=== PATIENT | female | born 1995 | race Caucasian/White ===

== ENCOUNTER 2020-02-05 09:28 | Outpatient (REF) | payer OTHER, MEDICAID, SELFPAY | END 2020-02-05 09:29 | disposition home or self-care (01) | LOC: HO.HMGCLDS 09:28 | PROVIDERS: PCP Internal Medicine; Visit Provider Nurse Practitioner Family | DX: Z20.828 Contact with and (suspected) exposure to other viral communicable diseases (principal) | CPT/HCPCS: 36415; 87635 ==

== ENCOUNTER 2020-04-26 11:54 | Outpatient (REF) | payer OTHER, MEDICAID, SELFPAY | END 2020-04-26 11:55 | disposition home or self-care (01) | LOC: HO.LNP 11:54 | PROVIDERS: Visit Provider Family Medicine | DX: Z20.828 Contact with and (suspected) exposure to other viral communicable diseases (principal) | CPT/HCPCS: U0003 ==

== ENCOUNTER 2020-05-10 10:38 | Outpatient (REF) | payer OTHER, MEDICAID, SELFPAY | END 2020-05-10 10:39 | disposition home or self-care (01) | LOC: HO.LNP 10:38 | PROVIDERS: Visit Provider Family Medicine | DX: R05 Cough (principal); Z20.822 Contact with and (suspected) exposure to COVID-19 | CPT/HCPCS: U0003 ==

== ENCOUNTER 2021-05-11 09:23 | Outpatient (REF) | payer OTHER, MEDICAID, SELFPAY ==
[2021-05-11 11:22] LABS: Influenza A PCR NEGATIVE (Negative); Influenza B PCR NEGATIVE (Negative); Resp Syncy Virus RNA Qual PCR NEGATIVE (Negative); SARS COV2 PCR INHOUSE NEGATIVE (Negative)
== END 2021-05-11 09:24 | disposition home or self-care (01) ==
LOC: HO.LAB 09:23
PROVIDERS: Visit Provider Hospitalist
DX: J02.8 Acute pharyngitis due to other specified organisms (principal); B97.89 Other viral agents as the cause of diseases classified elsewhere; Z20.822 Contact with and (suspected) exposure to COVID-19
CPT/HCPCS: 0241U

== ENCOUNTER 2021-08-10 15:44 | Outpatient (REF) | payer OTHER, MEDICAID, SELFPAY ==
--- NOTE | ~2021-08-10 | XR_ITS ---
EXAMINATION: XR CHEST CLINICAL INFORMATION: Asthma. COMPARISON: Prior chest radiographs as remote as 06/30/2008. TECHNIQUE: Frontal view of the chest was obtained. FINDINGS: No significant abnormality is noted involving the heart, lungs, mediastinum, bony thorax or soft tissues. XR/XR chest 1V IMPRESSION: Unremarkable examination.
== END 2021-08-10 15:45 | disposition home or self-care (01) ==
LOC: HO.XRAY 15:44
PROVIDERS: PCP Family Medicine; Visit Provider Hospitalist
DX: J45.909 Unspecified asthma, uncomplicated (principal); R68.83 Chills (without fever)
CPT/HCPCS: 71045

== ENCOUNTER 2023-02-07 15:23 | Outpatient (AMB) | payer OTHER, MEDICAID, SELFPAY ==
[2023-02-07 15:28] VITALS: BP 112/64; PULSE 109; RESP 12; TEMP 36.4; O2SAT 99; BMI 32.0
--- NOTE | 2023-02-07 15:28 | A.OFFPC_ITS ---
Vital Signs 02/07/23 15:28 Height 5 ft 6 in Weight 198 lb 4 oz BMI 32.0 BP 112/64 Blood Pressure Location Lt brachial Position Sitting Respiration 12 Pulse 109 H Pulse Source Pulse Oximeter Temp 97.6 F Temp Source Temporal Artery Scan Pulse Oximetry (%) 99 Oxygen Delivery Method Room Air Intake Visit Reasons: [place] [employer] Work Intake Note: Patient states that she hasd been wheezing and shes been using her inhaler more frequently. 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 Accompanied by: Self / Same As Patient Allergies cefprozil [From CEFZIL] Allergy (Intermediate, Verified 02/07/23 15:42) UNKNOWN Cefzil Allergy (Unknown, Uncoded 02/07/23 15:42) unsure Medication List - Last Reviewed 02/07/23 by Irene Mckeon MA albuterol sulfate 90 mcg/actuation (ProAir HFA) 2 puffs inhalation Q6H PRN 30 days amitriptyline mg PO montelukast 5 mg PO DAILY Tobacco use date assessed: 02/07/23 Dental Screening Dental Screen Date: 02/07/23 Did you have a dental visit in the last 12 months?: Yes Did you have a dental problem in the last 6 months where you did not have access to dental care?: No Was dental information given to patient?: Patient has dentist HPI HPI Comments History of Present Illness Details 27-year-old female presents with complai nts of wheezing. She states she has been using her albuterol inhaler more frequently; 3-4 puffs 3-4 times daily for the past 1 month. She admits to taking Montelukast as presc ribed. She notes that she was followed by [facility], was receiving allergy injections, but her director of vocational guidance left the practice. She states she will establish with a new director of vocational guidance. No acute symptoms at this time. She brought [facility] paperwork for her PCP to fill out. 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[employer] Current occupational exposures/hazards: No Cognitive needs: No Hearing needs: No Vision needs: No Questionnaire ACT Questionnaire In the past 4 weeks, how much of the time did your asthma keep you from getting as much done at work, school or at home?: None of the time During the past 4 weeks, how often have you had shortness of breath?: 3-6 times a week During the past 4 weeks, how often did your asthma symptoms wake you up at night or earlier than usual in the morning?: 4 or more nights a week During the past 4 weeks, how often have you had to use your rescue inhaler or nebulizer medication?: More than 3 times per day How would you rate your asthma control during the past 4 weeks?: Poorly controlled ACT Interpretation: Positive Score: 12 Review of Systems Const Details: Const Denies chills, Denies fatigue, Denies fever(s), Denies headache(s) and Denies weakness ENT Denies dizziness and Denies headache(s) Card Denies chest pain, Denies lightheadedness, Denies dyspnea and Denies other (Palpitations) Resp Denies cough, Denies dyspnea, Denies wheezing and Denies other ( shortness of breath) GI Denies abdominal pain, Denies melena, Denies hematochezia, Denies change in bowel habits, Denies dyspepsia and Denies nausea Denies hematuria and Denies dysuria Musc Denies abnormal gait, Denies myalgias, Denies arthralgias, Denies numbness and Denies tingling Skin/Breast Denies rash, Denies unusual bruising and Denies wounds Neuro Denies abnormal gait, Denies dizziness, Denies headache(s), Denies memory loss, Denies numbness, Denies Sensory deficit (Neuro), Denies tingling and Denies weakness Psych Denies anxiety, Denies depression, Denies memory loss Endo Denies cold intolerance, Denies fatigue, Denies heat intolerance, Denies polydipsia and Denies polyuria Aller/Immun Denies wheezing Physical exam (Primary Care) Vital Signs: Last Vital Signs Temp 97.6 F 02/07/23 15:28 Pulse 109 H 02/07/23 15:28 Resp 12 02/07/23 15:28 BP 112/64 02/07/23 15:28 Pulse Ox 99 02/07/23 15:28 Oxygen Delivery Method Room Air 02/07/23 15:28 BMI result Body Mass Index 32.0 Tobacco/Smoking Status: Tobacco use Status Tobacco use date assessed 02/07/23 02/07/23 15:40 Patient Tobacco Use Status Never used Tobacco 02/07/23 15:40 e-Cigarette/Vaping Use Never Used 02/07/23 15:40 Const Other: General: no acute distress and well developed Nutritional Appearance: well nourished Orientation/consciousness: patient oriented x3 HENMT Head: Yes normocephalic and Yes atraumatic Eyes General: appearance normal, both eyes and all related structures Pupils: Equal, round and reactive pupils present EOM: EOMs intact bilaterally Resp Effort & Inspection: normal respiratory effort Auscultation: clear to auscultation bilaterally Cardio Rate: regular rate Rhythm: regular rhythm Heart sounds: S1 normal heart sound present, S2 normal heart sound present, no gallops, no murmurs and no rubs GI Palpation (GI): No Abdominal aortic bruit present, Soft to palpation, nontender, No hepatosplenomegaly present and No Rebound tenderness present Auscultation: normal bowel sounds General: Yes no CVA tenderness Back/Spine/Pelvis Back: no CVA tenderness Cervical Spine: cervical ROM normal and No Cervical spine tenderness Thoracic/Lumbar Spine: thoraco-lumbar ROM normal, No pain with thoraco-lumbar ROM, No thoracic spinal tenderness and No lumbar spinal tenderness Extrem General: Yes normal to inspection, No edema and No calf tenderness Skin General: warm and dry. Normal skin color. Normal skin turgor Lesions: no lesions Rashes: no rashes Trauma: no lacerations or abrasions Wounds: no wounds Nails: normal Neuro General: patient oriented x3, gait normal and no focal neuro deficit Cranial nerves: Yes Equal, round and reactive pupils present Cognition (Neuro): normal cognition Gait exam (Neuro): Normal gait present Sensory Exam: No Sensory deficit (Neuro) Psych Appearance: grossly normal Affect: normal affect Attitude: cooperative Thought process: Normal thought process present Assessment and Plan Assessment & Plan (1) Poorly controlled persistent asthma: Code(s): J45.998 - Other asthma Plan: Reports wheezing and need to use her albuterol inhaler frequently for the past 1 month ACT score is 12 and indicates poorly controlled asthma Albuterol ordered changed to 2 puffs every 4-6 hours instead of every 6 hours. Take as prescribed Flovent ordered. Instructed on the use of the medication and advised to take as prescribed Continue take montelukast as prescribed Follow-up with PCP in 1 month or return sooner with worsening or new symptoms Verbalized understanding and agreed with treatment plan. Medications: New fluticasone propionate 44 mcg/actuation (Flovent HFA) administer with spacer 2 puffs inhalation BID 30 days 10.6 grams 2RF Changed From albuterol sulfate 90 mcg/actuation (ProAir HFA) 2 puffs inhalation Q6H 30 days PRN 8.5 grams 2RF shortness of breath or wheezing To albuterol sulfate 90 mcg/actuation (ProAir HFA) 2 puffs inhalation Q4-6H 30 days PRN 8.5 grams 2RF shortness of breath or wheezing Coding Level of Care Code Est Pt Level 3 (33399) Diagnoses Poorly controlled persistent asthma J45.998
== END 2023-02-07 16:03 | disposition home or self-care (01) ==
PROVIDERS: PCP Family Medicine; Visit Provider Nurse Practitioner Family
DX: J45.998 Other asthma (principal)
CPT/HCPCS: 99214

== ENCOUNTER 2023-03-01 11:15 | Outpatient (AMB) | payer OTHER, SELFPAY ==
[2023-03-01 11:20] VITALS: BP 118/78; PULSE 92; TEMP 36.9; O2SAT 98; BMI 31.4
--- NOTE | 2023-03-01 11:20 | MHC.PC.OV ---
Vital Signs 03/01/23 11:20 Height 5 ft 6 in Weight 194 lb 6 oz BMI 31.4 BP 118/78 Blood Pressure Location Lt brachial Position Sitting Pulse 92 Pulse Source Pulse Oximeter Temp 98.5 F Temp Source Oral Pulse Oximetry (%) 98 Oxygen Delivery Method Room Air Intake Visit Reasons: asthma, cough, SOB Intake Note: Patient states she has shortness of breath, and wheezing. Patient would like a flu shot today. Allergies cefprozil [From CEFZIL] Allergy (Intermediate, Verified 03/01/23 11:23) UNKNOWN Cefzil Allergy (Unknown, Uncoded 03/01/23 11:23) unsure Tobacco use date assessed: 03/01/23 HPI asthma, cough, SOB HPI Details 27 y/o female presents with complaints of asthma, cough and shortness of breath. She is on albuterol and flovent b.i.d. along with montelukast 5mg daily. 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 1. Little interest or pleasure in doing things: not at all 2. Feeling down, depressed, or hopeless: not at all 3. Trouble falling or staying asleep, or sleeping too much: not at all 4. Feeling tired or having little energy: not at all 5. Poor appetite or overeating: not at all 6. Feeling bad about yourself - or that you are a failure or have let yourself or your family down: not at all 7. Trouble concentrating on things, such as reading the newspaper or watching television: not at all 8. Moving or speaking so slowly that other people could have noticed. Or the opposite - being so fidgety or restless that you have been moving around a lot more than usual: not at all 9. Thoughts that you would be better off or of hurting yourself in some way: not at all Total score: 0 Source: Developed by Drs. Rob Richardson, Mercedez Keene, Cisco Sumner and colleagues, with an educational chela from [employer]. Thrive Questionnaire Date Thrive assessed: 03/01/23 I am a: Patient What is your living situation today?: I have a steady place to live Within the past 12 months, did the food you bought not last and you didn't have the money to get more?: Never true Within the past 12 months, did you worry whether your food would run out before you got money to buy more?: Never true Do you have trouble paying for medicines?: No Do you have trouble getting transportation to medical appointments?: No Do you have trouble paying your heating and electricity bill?: No Do you have trouble taking care of your child, family member or friend?: No Do you have trouble with day-to-day activities such as bathing, preparing meals, shopping, managing finances, etc.?: No Are you currently unemployed and looking for a job?: No Are you interested in more education?: No AUDIT C Alcohol Use Questionnaire (AUDIT-C) 1. How often do you have a drink containing alcohol?: Monthly or less 2. How many drinks containing alcohol do you have on a typical day when you are drinking?: 1 or 2 3. How often do you have six or more drinks on one occasion?: Never Total Score: 1 JAK-7 AMB Questionnaire JAK-7 Date JAK - 7 assessed: 03/01/23 Feeling nervous, anxious, or on edge: 1 = Several days Not being able to stop or control worryin = Several days Worrying too much about different things: 3 = Nearly every day Trouble relaxin = Several days Being so restless that it is hard to sit still: 3 = Nearly every day Becoming easily annoyed or irritable: 3 = Nearly every day Feeling afraid as if something awful might happen: 2 = More than half the days Total JAK-7 score (0-4 normal; 5-9 mild; 10-14 moderate; 15-21 severe): 14 Source: Developed by Drs. Rob Richardson, Mercedez Keene, Cisco Sumner and colleagues, with an educational chela from [employer]. ACT Questionnaire In the past 4 weeks, how much of the time did your asthma keep you from getting as much done at work, school or at home?: Most of the time During the past 4 weeks, how often have you had shortness of breath?: More than once a day During the past 4 weeks, how often did your asthma symptoms wake you up at night or earlier than usual in the morning?: 4 or more nights a week During the past 4 weeks, how often have you had to use your rescue inhaler or nebulizer medication?: More than 3 times per day How would you rate your asthma control during the past 4 weeks?: Not controlled at all ACT Interpretation: Positive Score: 6 Review of Systems Const Denies chills, Denies fatigue, Denies fever(s), Denies headache(s) and Denies weakness ENT Denies dizziness and Denies headache(s) Card Denies chest pain, Denies lightheadedness, Denies dyspnea and Denies other (Palpitations) Resp Denies cough, Denies dyspnea, Denies wheezing and Denies other ( shortness of breath) Musc Denies numbness and Denies tingling Neuro Denies dizziness, Denies headache(s), Denies numbness, Denies tingling, Denies paresthesias and Denies weakness Psych Denies anxiety and Denies depression Endo Denies fatigue Aller/Immun Denies wheezing Physical exam (Primary Care) Vital Signs: Last Vital Signs Temp 98.5 F 03/01/23 11:20 Pulse 92 03/01/23 11:20 BP 118/78 03/01/23 11:20 Pulse Ox 98 03/01/23 11:20 Oxygen Delivery Method Room Air 03/01/23 11:20 BMI result Body Mass Index 31.4 Tobacco/Smoking Status: Tobacco use Status Tobacco use date assessed 03/01/23 03/01/23 11:24 Patient Tobacco Use Status Never used Tobacco 03/01/23 11:24 e-Cigarette/Vaping Use Never Used 03/01/23 11:24 PHQ-9: PHQ-9 Score PHQ-9: Total score 0 03/01/23 11:49 Thrive Assessment: Date of Thrive Assessment Date Thrive assessed 03/01/23 03/01/23 11:31 Const General: no acute distress and well developed Nutritional Appearance: well nourished Orientation/consciousness: patient oriented x3 HENMT Head: Yes normocephalic and Yes atraumatic Eyes General: appearance normal, both eyes and all related structures Pupils: Equal, round and reactive pupils present EOM: EOMs intact bilaterally Resp Effort & Inspection: normal respiratory effort Auscultation: clear to auscultation bilaterally Cardio Rate: regular rate Rhythm: regular rhythm Heart sounds: S1 normal heart sound present, S2 normal heart sound present, no gallops, no murmurs and no rubs Neuro General: patient oriented x3 and gait normal Cranial nerves: Yes Equal, round and reactive pupils present Psych Affect: normal affect Assessment and Plan Assessment & Plan (1) Asthma exacerbation: Code(s): J45.901 - Unspecified asthma with (acute) exacerbation Plan: Poorly?controlled?persistent?asthma?and?current?asthma?exacerbation Continue?albuterol?p.r.n. Increased?Flovent Will?give?her?a?10?day?taper?of?prednisone Referred?to?pulmonology (2) Immunization counseling: Code(s): Z71.85 - Encounter for immunization safety counseling Plan: Patient?is?due?for?flu?shot?and?her?work?as?telling?her?she?needs?to?get?1?soon?as?possible. However,?she?is?starting?a?10?day?taper?of?prednisone She?can?get?her?flu?shot?in?2 weeks.??Will?give?her?a?note. Orders: Referrals Pulmonary Medicine Referral J45.998 - Other asthma Medications: New prednisone 4 tabs daily for 4 days, 3 tabs daily for 2 days, 2 tabs daily for 2 days, 1 tab daily for 2 days PO daily; 28 tabs 0RF 10 days Changed From fluticasone propionate 44 mcg/actuation (Flovent HFA) administer with spacer 2 puffs inhalation BID 30 days 10.6 grams 2RF To fluticasone propionate 110 mcg/actuation administer with spacer 1 puff inhalation BID 12 grams 2RF 30 days Coding Level of Care Code Est Pt Level 3 (46788) Diagnoses Asthma exacerbation J45.901 Immunization counseling Z71.85
== END 2023-03-01 12:31 | disposition home or self-care (01) ==
PROVIDERS: PCP Family Medicine; Visit Provider Family Medicine
DX: J45.901 Unspecified asthma with (acute) exacerbation (principal); Z71.85 Encounter for immunization safety counseling
CPT/HCPCS: 99213

== ENCOUNTER 2023-03-14 15:10 | Outpatient (AMB) | payer OTHER, SELFPAY ==
[2023-03-14 15:15] VITALS: BP 124/75; PULSE 93; O2SAT 99; BMI 31.3
--- NOTE | 2023-03-14 15:15 | A.OFFPC_ITS ---
Vital Signs 03/14/23 15:15 Height 5 ft 6 in Weight 194 lb 4 oz BMI 31.3 BP 124/75 Blood Pressure Location Rt brachial Position Sitting Pulse 93 Pulse Source Pulse Oximeter Pulse Oximetry (%) 99 Oxygen Delivery Method Room Air Intake Visit Reasons: f/u asthma and flu shot Intake Note: Patient is here to follow up on her asthma and flu shot. Allergies cefprozil [From CEFZIL] Allergy (Intermediate, Verified 03/14/23 15:16) UNKNOWN Cefzil Allergy (Unknown, Uncoded 03/14/23 15:16) unsure Tobacco use date assessed: 03/14/23 HPI f/u asthma and flu shot HPI Details 27 y/o female presents today to f/u zachary may. She is also due for a flu shot for her work. Had continued her albuterol p.r.n. and increased her flovent. Had also given her a 10 day taper of prednisone and referred her to pulmonology. She has an appt. with pulmonology late April. She reports she caught a viral illness about 2 days ago from one of her kids. She notes she had just finished her last dose of prednisone. She reports she has a cough that lingers. 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 Rob Richardson, Mercedez Keene, Cisco Sumner and colleagues, with an educational chela from [employer]. Review of Systems Const Denies chills, Denies fatigue, Denies fever(s), Denies headache(s) and Denies weakness ENT Denies dizziness and Denies headache(s) Card Denies dyspnea Resp Reports cough, Denies dyspnea and Denies wheezing Musc Denies numbness and Denies tingling Neuro Denies dizziness, Denies headache(s), Denies numbness, Denies tingling and Denies weakness Psych Denies anxiety and Denies depression Endo Denies fatigue Aller/Immun Denies wheezing Physical exam (Primary Care) Vital Signs: Last Vital Signs Pulse 93 03/14/23 15:15 BP 124/75 03/14/23 15:15 Pulse Ox 99 03/14/23 15:15 Oxygen Delivery Method Room Air 03/14/23 15:15 BMI result Body Mass Index 31.3 Tobacco/Smoking Status: Tobacco use Status Tobacco use date assessed 03/14/23 03/14/23 15:22 Patient Tobacco Use Status Never used Tobacco 03/14/23 15:22 e-Cigarette/Vaping Use Never Used 03/14/23 15:22 Thrive Assessment: Date of Thrive Assessment Date Thrive assessed 03/01/23 03/14/23 15:22 Const General: well developed; No acute distress Nutritional Appearance: well nourished Orientation/consciousness: patient oriented x3 [facility] Head: Yes normocephalic and Yes atraumatic Eyes General: appearance normal, both eyes and all related structures Pupils: Equal, round and reactive pupils present EOM: EOMs intact bilaterally Resp Effort & Inspection: normal respiratory effort Neuro General: patient oriented x3 and gait normal Cranial nerves: Yes Equal, round and reactive pupils present Psych Affect: normal affect Assessment and Plan Assessment & Plan (1) Asthma: Code(s): J45.909 - Unspecified asthma, uncomplicated Plan: Ongoing?but?improved?asthma?exacerbation.??She?has?finished?her?prednisone?taper ?and?is?using?Flovent?and?albuterol. However,?she?has?acquired?a?viral?illness?that?her?children?recently?had. Declines?testing?for?COVID/flu/RSV Recommended?rest?and?fluid. Continue?albuterol?and?Flovent Hold?off?on?getting?flu?shot?until?asthma?exacer bation?has?resolved.??Will?give?patient?a?note?to?postpone?this She?has?an?appointment?with?pulmonology?in?April (2) Immunization counseling: Code(s): Z71.85 - Encounter for immunization safety counseling Plan: As?above (3) Viral illness: Code(s): B34.9 - Viral infection, unspecified Plan: As?above Advised?that?if?she?is?getting?worse?or?getting?fevers?or?chills.??She?shou ld?reconsider?getting?tested?for?COVID/flu/RSV. Coding Level of Care Code Est Pt Level 3 (04721) Diagnoses Asthma J45.909 Immunization counseling Z71.85 Viral illness B34.9
== END 2023-03-14 16:01 | disposition home or self-care (01) ==
PROVIDERS: PCP Family Medicine; Visit Provider Family Medicine
DX: J45.909 Unspecified asthma, uncomplicated (principal); Z71.85 Encounter for immunization safety counseling; B34.9 Viral infection, unspecified
CPT/HCPCS: 99213

== ENCOUNTER 2023-06-19 10:17 | Outpatient (AMB) | payer OTHER, SELFPAY ==
[2023-06-19 10:21] VITALS: BP 123/70; PULSE 98; O2SAT 92; BMI 30.7
--- NOTE | 2023-06-19 10:21 | MHC.PC.OV ---
Vital Signs 06/19/23 10:21 Height 5 ft 6 in Weight 190 lb BMI 30.7 BP 123/70 Blood Pressure Location Lt brachial Position Sitting Pulse 98 Pulse Source Pulse Oximeter Pulse Oximetry (%) 92 Oxygen Delivery Method Room Air Intake Visit Reasons: ongoing cough Intake Note: Patient is here with cough, has chest congestion. She was tested for Flu, Covid, RSV. Allergies cefprozil [From CEFZIL] Allergy (Intermediate, Verified 06/19/23 10:23) UNKNOWN Cefzil Allergy (Unknown, Uncoded 06/19/23 10:23) unsure Tobacco use date assessed: 06/19/23 HPI ongoing cough HPI Details 27 y/o female presents today with complaints of a cough. Pt also reports chest congestion. Has had asthma exacerbation before. Pt also has complaints of ear pain. [facility] Medical History Hx of migraines Surgical History No pertinent past surgical history Social History Housing: House Patient Tobacco Use Status: Never used Tobacco e-Cigarette/Vaping Use: Never Used service: No Current occupational status: employed Current occupation: [employer] Current occupational exposures/hazards: No Cognitive needs: No Hearing needs: No Vision needs: No Questionnaire Thrive Questionnaire Date Thrive assessed: 03/01/23 JAK-7 AMB Questionnaire JAK-7 Date JAK - 7 assessed: 03/01/23 Source: Developed by Drs. Rob Richardson, Mercedez Keene, Cisco Sumner and colleagues, with an educational chela from [employer]. ACT Questionnaire In the past 4 weeks, how much of the time did your asthma keep you from getting as much done at work, school or at home?: Some of the time During the past 4 weeks, how often have you had shortness of breath?: More than once a day During the past 4 weeks, how often did your asthma symptoms wake you up at night or earlier than usual in the morning?: 4 or more nights a week During the past 4 weeks, how often have you had to use your rescue inhaler or nebulizer medication?: More than 3 times per day How would you rate your asthma control during the past 4 weeks?: Poorly controlled Score: 8 Review of Systems Const Denies chills, Denies fatigue, Denies fever(s), Denies headache(s) and Denies weakness ENT Denies dizziness and Denies headache(s) Card Denies chest pain, Denies lightheadedness, Denies dyspnea and Denies other (Palpitations) Resp Reports cough, Denies dyspnea and Denies wheezing Musc Denies numbness and Denies tingling Neuro Denies dizziness, Denies headache(s), Denies numbness, Denies tingling, Denies paresthesias and Denies weakness Psych Denies anxiety and Denies depression Endo Denies fatigue Aller/Immun Denies wheezing Physical exam (Primary Care) Vital Signs: Last Vital Signs Pulse 98 06/19/23 10:21 BP 123/70 06/19/23 10:21 Pulse Ox 92 06/19/23 10:21 Oxygen Delivery Method Room Air 06/19/23 10:21 BMI result Body Mass Index 30.7 Tobacco/Smoking Status: Tobacco use Status Tobacco use date assessed 06/19/23 06/19/23 10:27 Patient Tobacco Use Status Never used Tobacco 06/19/23 10:27 e-Cigarette/Vaping Use Never Used 06/19/23 10:27 Thrive Assessment: Date of Thrive Assessment Date Thrive assessed 03/01/23 06/19/23 10:27 Const General: no acute distress and well developed Nutritional Appearance: well nourished Orientation/consciousness: patient oriented x3 HENMT Head: Yes normocephalic and Yes atraumatic Eyes General: appearance normal, both eyes and all related structures Pupils: Equal, round and reactive pupils present EOM: EOMs intact bilaterally Resp Other: Coarse breath sounds and secretions Effort & Inspection: normal respiratory effort Auscultation: not clear to auscultation bilaterally Cardio Rate: regular rate Rhythm: regular rhythm Heart sounds: S1 normal heart sound present, S2 normal heart sound present, no gallops, no murmurs and no rubs Neuro General: patient oriented x3 and gait normal Cranial nerves: Yes Equal, round and reactive pupils present Psych Affect: normal affect Assessment and Plan Assessment & Plan (1) Bronchitis: Code(s): J40 - Bronchitis, not specified as acute or chronic Plan: Bronchitis?likely?secondary?to?a?viral?illness She?already?had?testing?for?COVID/flu/RSV?and?was?negative Will?give?her?a?script?for?a?Z-Ameya?and?prednisone?taper Hydrate?well Can?also?use?Mucinex (2) Otitis media: Code(s): H66.90 - Otitis media, unspecified, unspecified ear Plan: Left?otitis?which?appears?to?be?resolving Nor?erythema?but?still?has?pus?behind?the?eardrum As?above,?will?give?her?a?Z-Ameya (3) Asthma exacerbation: Code(s): J45.901 - Unspecified asthma with (acute) exacerbation Plan: Continue?inhaled?medications Prednisone?taper Medications: New prednisone 4 tabs daily for 4 days, 3 tabs daily for 2 days, 2 tabs daily for 2 days, 1 tab daily for 2 days PO daily; 28 tabs 0RF 10 days azithromycin (Zithromax Z-Ameya) take 500 mg today (day 1), then 250 mg for 4 days (days 2-5) PO 6 tabs 0RF 5 days Changed From montelukast 5 mg PO DAILY To montelukast 5 mg PO DAILY 30 tabs 2RF 30 days Refilled fluticasone propionate 110 mcg/actuation administer with spacer 1 puff inhalation BID 30 days 12 grams 2RF Coding Level of Care Code Est Pt Level 4 (60846) Diagnoses Bronchitis J40 Otitis media H66.90 Asthma exacerbation J45.901
== END 2023-06-19 11:33 | disposition home or self-care (01) ==
PROVIDERS: PCP Family Medicine; Visit Provider Family Medicine
DX: H66.92 Otitis media, unspecified, left ear (principal); J45.901 Unspecified asthma with (acute) exacerbation
CPT/HCPCS: 99214

== ENCOUNTER 2023-06-27 08:11 | Outpatient (AMB) | payer OTHER, SELFPAY ==
--- NOTE | 2023-06-27 08:18 | AM.OFFWIN_ITS ---
Intake Vital Signs 06/27/23 08:43 Height 5 ft 4 in Weight 189 lb BMI 32.4 BP 112/62 Blood Pressure Location Rt brachial Position Sitting Respiration 15 Pulse 84 Pulse Source Pulse Oximeter Pulse Oximetry (%) 98 Oxygen Delivery Method Room Air Intake Visit Reasons: cough,congestion Intake Note: Patient reports she was seen by Dr. Duque 7 days ago and was told to return if she was not feeling better. Patient reports she has a persistent cough and a difficult time breathing. Patient Tobacco Use Status: Former Tobacco user Accompanied by: Friend Allergies cefprozil [From CEFZIL] Allergy (Intermediate, Verified 06/27/23 09:09) UNKNOWN Cefzil Allergy (Unknown, Uncoded 06/27/23 08:47) unsure Medication List - Last Reconciled 06/27/23 by Chely Ames [facility]- albuterol sulfate 90 mcg/actuation (ProAir HFA) 2 puffs inhalation Q4-6H PRN 30 days fluticasone propionate 110 mcg/actuation 1 puff inhalation BID 30 days montelukast 5 mg PO DAILY 30 days ondansetron 4 mg PO Q8H PRN 4 days prednisone 4 tabs daily for 4 days, 3 tabs daily for 2 days, 2 tabs daily for 2 days, 1 tab daily for 2 days PO daily; 10 days HPI HPI Comments History of Present Illness Details Here today with complaints of asthma exacerbation and left ear pain that had been present for several weeks. She was treated with amoxicillin 875 mg p.o. b.i.d. on 06/13/2023. This was initially for the left OM. She return to see her primary care provider and was then treated with Zpak and pred for OM of L and asthma exac. Sensory time she reports that her asthma is terrible. She is using her rescue inhaler hourly. She has feeling no relief in regards to the constant coughing and feeling short of breath. Her chest feels like it is on fire at night. The left ear feels like it is not drained. She was prescribed Singulair but did not take as she was not sure why she was supposed to be taking it. Denies fever, chills, chest pain She is currently on FMLA. Needs her paperwork updated. [facility] Medical History Hx of migraines Surgical History No pertinent past surgical history Social History Housing: House Patient Tobacco Use Status: Former Tobacco user e-Cigarette/Vaping Use: Never Used service: No Current occupational status: employed Current occupation: [employer] Current occupational exposures/hazards: No Cognitive needs: No Hearing needs: No Vision needs: No Review of Systems Const All systems reviewed & are unremarkable except as noted in HPI and below Physical Exam Vital Signs: Last Vital Signs Pulse 84 06/27/23 08:43 Resp 15 06/27/23 08:43 BP 112/62 06/27/23 08:43 Pulse Ox 98 06/27/23 08:43 Oxygen Delivery Method Room Air 06/27/23 08:43 BMI result Body Mass Index 32.4 Const Other: Awake alert NAD Sclera and conjunctiva clear bilat Cerumen in EAC R unable to see TM, TM intact + bulging MMM, pharynx WNL RRR LS dim throughout, exp wheezes throughout, improved w/ coughing. Paroxysmal coughing Assessment & Plan Assessment & Plan (1) Asthma exacerbation: Code(s): J45.901 - Unspecified asthma with (acute) exacerbation Qualifiers: Asthma severity: moderate Asthma persistence: persistent Qualified Code(s): J45.41 - Moderate persistent asthma with (acute) exacerbation (2) Otitis media: Code(s): H66.90 - Otitis media, unspecified, unspecified ear Qualifiers: Otitis media type: serous Chronicity: acute Laterality: left Recurrence: not specified as recurrent Qualified Code(s): H65.02 - Acute serous otitis media, left ear Plan I have advised her to increase her fluticasone propionate from 1 puff twice a day to 2 puffs twice per day. Take the Singulair 5 mg every night at bedtime. Stop using her rescue HFA and start using DuoNeb nebulizer. Please use this 3-4 times per day. I have also add a magnesium to see if this will help. She is aware that the side effect is diarrhea and she should reduce the frequency or stop should diarrhea start. Educated on the risks associated with overuse of albuterol and discouraged hourly use. She is Flonase at home she should use this to help with the bulging of the left eardrum that is present on exam today. Aware that this eardrum may rupture and that is okay. I have updated her [facility] paperwork as requested. I do not wish to give her antibiotics at this time given she was just on 2 back to back. I would like to see her back in 1 week to evaluate effectiveness of this treatment plan. We may need to step up her maintenance inhaler to control her symptoms. 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 Does not follow with anybody at the current time for this. Encouraged follow up on this as this may be contributing. This note is constructed using voice recognition software. While every effort has been made to ensure accuracy in industrial truck mechanic, still errors may have been included Sometimes, these errors may affect the content or meaning of the given sentence . Total time spent caring for the patient today was 45 minutes. This includes time spent before the visit reviewing the chart, time spent during the visit, and time spent after the visit on documentation Medications: New ipratropium-albuterol 0.5 mg-3 mg(2.5 mg base)/3 mL 3 mL inhalation QID PRN 180 mL 0RF wheezing nebulizers As directed 1 ea 0RF nebulizer accessories As directed 1 ea 0RF magnesium sulfate 100 mg PO BID 14 caps 0RF Coding Level of Care Code Est Pt Level 5 (42529) Diagnoses Moderate persistent asthma with exacerbation J45.41 Asthma severity: moderate Asthma persistence: persistent Acute serous otitis media of left ear, recurrence not specified H65.02 Otitis media type: serous Chronicity: acute Laterality: left Recurrence: not specified as recurrent
[2023-06-27 08:43] VITALS: BP 112/62; PULSE 84; RESP 15; O2SAT 98; BMI 32.4
== END 2023-06-27 10:23 | disposition home or self-care (01) ==
PROVIDERS: PCP Family Medicine; Visit Provider Nurse Practitioner Family
DX: J45.41 Moderate persistent asthma with (acute) exacerbation (principal); H65.02 Acute serous otitis media, left ear
CPT/HCPCS: 99215

== ENCOUNTER 2023-07-03 09:44 | Outpatient (AMB) | payer OTHER, SELFPAY ==
[2023-07-03 10:01] VITALS: BP 112/79; PULSE 83; RESP 13; TEMP 36.5; O2SAT 98; BMI 32.3
--- NOTE | 2023-07-03 10:01 | A.OFFPC_ITS ---
Vital Signs 07/03/23 10:01 Height 5 ft 4 in Weight 188 lb BMI 32.3 BP 112/79 Blood Pressure Location Lt brachial Position Sitting Respiration 13 Pulse 83 Pulse Source Pulse Oximeter Temp 97.7 F Temp Source Temporal Artery Scan Pulse Oximetry (%) 98 Oxygen Delivery Method Room Air Intake Visit Reasons: eliz from [place] Allergies cefprozil [From CEFZIL] Allergy (Intermediate, Verified 07/03/23 10:28) UNKNOWN Cefzil Allergy (Unknown, Uncoded 06/27/23 08:47) unsure Medication List - Last Reconciled 07/03/23 by Chely Ames, [facility]- albuterol sulfate 90 mcg/actuation (ProAir HFA) 2 puffs inhalation Q4-6H PRN 30 days fluticasone propionate 110 mcg/actuation 1 puff inhalation BID 30 days ipratropium-albuterol 0.5 mg-3 mg(2.5 mg base)/3 mL 3 mL inhalation QID PRN magnesium sulfate 100 mg PO BID montelukast 5 mg PO DAILY 30 days nebulizer accessories As directed nebulizers As directed ondansetron 4 mg PO Q8H PRN 4 days Tobacco use date assessed: 06/19/23 HPI HPI Comments History of Present Illness Details 27-year-old female here today to follow up on asthma exacerbation. At the last visit on June 27 she was advised to increase her fluticasone propionate 1 puff twice a day to 2 puffs twice per day. Takes Singulair 5 mg every night at bedtime. Stop using her rescue HFA and start using a DuoNeb nebulizer 3-4 times per day. Start magnesium to see if this will help. Continue to use nasal Flonase to help with the bulging of the left eardrum. Today she comes in and reports Did have some reprieve from her sx w/ the above unfortunately her child became sick and was hospitalized w/ bronchiolitis woke up yesterday w/ sore throat which cont today assoc w/ feeling like she cannot breathe and had to use her rescue inhaler again. She was not able to get the nebulizer as there was a problem with a prescription. New prescription was provided her today. Admits to decreased use of a rescue inhaler with the above treatment. [facility] Medical History Hx of migraines Surgical History No pertinent past surgical history Social History (Updated 07/03/23 @ 10:07 by Patricia Lee CMA) Household Members: Spouse and Children Housing: House 75 years or older and lives alone: No Alcohol intake: former Patient Tobacco Use Status: Former Tobacco user e-Cigarette/Vaping Use: Never Used service: No Current occupational status: employed Current occupation: [employer] @ [employer] Current occupational exposures/hazards: No Cognitive needs: No Hearing needs: No Vision needs: No Questionnaire Thrive Questionnaire Date Thrive assessed: 03/01/23 JAK-7 AMB Questionnaire JAK-7 Date JAK - 7 assessed: 03/01/23 Source: Developed by Drs. Rob Richardson, Mercedez Keene, Cisco Sumner and colleagues, with an educational chela from [employer]. Review of Systems Const All systems reviewed & are unremarkable except as noted in HPI and below Physical exam (Primary Care) Vital Signs: Last Vital Signs Temp 97.7 F 07/03/23 10:01 Pulse 83 07/03/23 10:01 Resp 13 07/03/23 10:01 BP 112/79 07/03/23 10:01 Pulse Ox 98 07/03/23 10:01 Oxygen Delivery Method Room Air 07/03/23 10:01 BMI result Body Mass Index 32.3 Tobacco/Smoking Status: Tobacco use Status Tobacco use date assessed 06/19/23 07/03/23 10:07 Patient Tobacco Use Status Former Tobacco user 07/03/23 10:07 e-Cigarette/Vaping Use Never Used 07/03/23 10:07 Thrive Assessment: Date of Thrive Assessment Date Thrive assessed 03/01/23 07/03/23 10:07 Const Other: Awake alert NAD Sclera and conjunctiva clear bilat Cerumen in EAC R unable to see TM, TM intact no longer bulging with very mild congestion MMM, pharynx WNL RRR LS with improved air movement throughout, no longer hearing exp wheezes throughout, very mild cough Results AMB Rapid Strep AMB Rapid Strep Negative Last Edit by Khadijah Conley CMA on 07/03/23 10:49 AMB Rapid Strep AMB Rapid Strep Negative Last Edit by Patricia Lee CMA on 4 13:37 Results Reviewed Results Reviewed: Laboratory Last Values Strep Scn [facility] Negative 07/03/23 13:36 Assessment and Plan Assessment & Plan (1) Poorly controlled persistent asthma: Comment: Was having improvement in her symptoms with the increase in her fluticasone propionate from 1 puff twice a day to 2 puffs twice a day, Singulair 5 mg at bedtime, Flonase 2 sprays each nostril once per day. Was not able to get the nebulizer. I have provided her this prescription today and encouraged her to fill it and to try this. As she did complain of a sore throat strep test was performed and this was negative. I did let her know that I think that she clinically was getting better but then she was hit with another insult when she was exposed to the hospital setting in her sick child. She and agree. I do think we need to give this a little bit more time. Do not think she would benefit from prednisone or any antibiotics at this time. I would like to see her back for a close follow up in 1-2 weeks. Of note she did request a amendment to her FMLA. It is currently written as 6 episodes per month lasting 3-4 days. She would like this to be increased to 7 episodes per month lasting 3-4 days per episode. We will have the staff amend this paperwork and returned to her tomorrow. This note is constructed using voice recognition software. While every effort has been made to ensure accuracy in flight communications operator, still errors may have been included Sometimes, these errors may affect the content or meaning of the given sentence . Total time spent caring for the patient today was 60 minutes. This includes time spent before the visit reviewing the chart, time spent during the visit, and time spent after the visit on documentation Code(s): J45.998 - Other asthma Orders: Orders AMB Rapid Strep Screen Today J02.9 - Acute pharyngitis, unspecified AMB Rapid Strep Screen Today Z13.9 - Encounter for screening, unspecified Medications: Refilled ipratropium-albuterol 0.5 mg-3 mg(2.5 mg base)/3 mL 3 mL inhalation QID PRN 180 mL 0RF wheezing J45.998 - Other asthma nebulizer accessories As directed 1 ea 0RF J45.998 - Other asthma nebulizers As directed 1 ea 0RF J45.998 - Other asthma Coding Level of Care Code Est Pt Level 5 (81182) Diagnoses Poorly controlled persistent asthma J45.998
== END 2023-07-03 11:29 | disposition home or self-care (01) ==
PROVIDERS: PCP Family Medicine; Visit Provider Nurse Practitioner Family
DX: J45.998 Other asthma (principal); J02.9 Acute pharyngitis, unspecified
CPT/HCPCS: 87880; 99215

== ENCOUNTER 2023-07-20 07:50 | Outpatient (AMB) | payer OTHER, SELFPAY ==
--- NOTE | 2023-07-20 07:44 | A.OFFPC_ITS ---
Vital Signs 07/20/23 08:13 Height 5 ft 4 in Weight 193 lb 2 oz BMI 33.1 BP 114/60 Blood Pressure Location Lt brachial Position Sitting Pulse 97 Pulse Source Pulse Oximeter Oxygen Delivery Method Room Air Intake Visit Reasons: ongoing symtpoms Allergies cefprozil [From CEFZIL] Allergy (Intermediate, Verified 07/20/23 08:16) UNKNOWN Cefzil Allergy (Unknown, Uncoded 06/27/23 08:47) unsure Medication List - Last Reconciled 07/20/23 by Chely Ames, [facility]- albuterol sulfate 90 mcg/actuation (ProAir HFA) 2 puffs inhalation Q4-6H PRN 30 days fluticasone propionate 110 mcg/actuation 1 puff inhalation BID 30 days ipratropium-albuterol 0.5 mg-3 mg(2.5 mg base)/3 mL 3 mL inhalation QID PRN magnesium sulfate 100 mg PO BID montelukast 5 mg PO DAILY 30 days nebulizer accessories As directed nebulizers As directed ondansetron 4 mg PO Q8H PRN 4 days Tobacco use date assessed: 06/19/23 HPI HPI Comments History of Present Illness Details 27-year-old female with asthma & IgA def iciency here today to follow up on asthma exacerbation. At the last visit on June 27 she was advised to increase her fluticasone propionate 1 puff twice a day to 2 puffs twice per day. Takes Singulair 5 mg every night at bedtime. Stop using her rescue HFA and start using a DuoNeb nebulizer 3-4 times per day. Start magnesium to see if this will help. Continue to use nasal Flonase to help with the bulging of the left eardrum. Last visit: Was having improvement in her symptoms with the increase in her fluticasone propionate from 1 puff twice a day to 2 puffs twice a day, Singulair 5 mg at bedtime, Flonase 2 sprays each nostril once per day. Was not able to get the nebulizer. I have provided her this prescription today and encouraged her to fill it and to try this. As she did complain of a sore throat strep test was performed and this was negative. I did let her know that I think that she clinically was getting better but then she was hit with another insult when she was exposed to the hospital setting in her sick child. She and agree. I do think we need to give this a little bit more time. Do not think she would benefit from prednisone or any antibiotics at this time. I would like to see her back for a close follow up in 1-2 weeks. Of note she did request a amendment to her FMLA. It is currently written as 6 episodes per month lasting 3-4 days. She would like this to be increased to 7 episodes per month lasting 3-4 days per episode. We will have the staff amend this paperwork and returned to her tomorrow. 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 Feels pressure in the back of neck. When she applies pressure, feels better. Assoc w/ frontal headache. Stopped elavil which she was taking for headache prevention about 2 months ago. Not sure if headaches are related to that or not? [facility] Medical History Hx of migraines Surgical History No pertinent past surgical history Social History (Updated 07/03/23 @ 10:07 by Patricia Lee CMA) Household Members: Spouse and Children Housing: House Alcohol intake: former Patient Tobacco Use Status: Former Tobacco user e-Cigarette/Vaping Use: Never Used service: No Current occupational status: employed Current occupation: [email or web address] Current occupational exposures/hazards: No Cognitive needs: No Hearing needs: No Vision needs: No Questionnaire Thrive Questionnaire Date Thrive assessed: 03/01/23 JAK-7 AMB Questionnaire JAK-7 Date JAK - 7 assessed: 03/01/23 Source: Developed by Drs. Rob Richardson, Mercedez Keene, Cisco Sumner and colleagues, with an educational chela from [employer] Review of Systems Const All systems reviewed & are unremarkable except as noted in HPI and below Physical exam (Primary Care) Tobacco/Smoking Status: Tobacco use Status Tobacco use date assessed 06/19/23 07/03/23 10:07 Patient Tobacco Use Status Former Tobacco user 07/03/23 10:07 e-Cigarette/Vaping Use Never Used 07/03/23 10:07 Thrive Assessment: Date of Thrive Assessment Date Thrive assessed 03/01/23 07/03/23 10:07 Const Other: Awake alert NAD Sclera and conjunctiva clear bilat Cerumen in EAC R unable to see TM, TM intact, looks mildly retracted w/ white discoloration to periphery from 3-6 MMM, pharynx + erythema, Left posterior pharynx with grouped raised erythematous lesions, uvula midline managing secretions Nares patent RRR LS faint exp wheeze LLL that cleared w/ deep breaths, mild cough. 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 Code(s): D80.2 - Selective deficiency of immunoglobulin A [IgA] (2) Pharyngitis: Comment: recurrent and present for > 1 month negative strep test last visit negative viral swab s/p tonsils and adenoid removal in childhood now w/ erythematous raised group lesions in posterior L pharynx Plan: check mono, streptolysin AB and CT of neck/sinus and bring back for f/u Code(s): J02.9 - Acute pharyngitis, unspecified Qualifiers: Pharyngitis/tonsillitis etiology: unspecified etiology Qualified Code(s): J02.9 - Acute pharyngitis, unspecified (3) Status post tonsillectomy and adenoidectomy: Code(s): Z90.89 - Acquired absence of other organs (4) Poorly controlled persistent asthma: Comment: Plan: Cont fluticasone propionate from 1 puff twice a day, new rx for 220 sent in, increase Singulair from 5 mg at bedtime to 10mg, cont Flonase 2 sprays each nostril once per day. Was not able to get the nebulizer. Has prescription today and encouraged her to fill it and to try this. This note is constructed using voice recognition software. While every effort has been made to ensure accuracy in grades 1 thru 6 home teacher, still errors may have been included Sometimes, these errors may affect the content or meaning of the given sentence . Total time spent caring for the patient today was 45 minutes. This includes time spent before the visit reviewing the chart, time spent during the visit, and time spent after the visit on documentation Code(s): J45.998 - Other asthma Orders: Orders Monotest Today D80.2 - Selective deficiency of immunoglobulin A [IgA], J02.9 - Acute pharyngitis, unspecified Streptolysin O Antibody Today D80.2 - Selective deficiency of immunoglobulin A [IgA], J02.9 - Acute pharyngitis, unspecified Complete Blood Count no Diff Today D80.2 - Selective deficiency of immunoglobulin A [IgA], J02.9 - Acute pharyngitis, unspecified CT sinus wo IV con Today D80.2 - Selective deficiency of immunoglobulin A [IgA], H69.90 - Unspecified Eustachian tube disorder, unspecified ear, J02.9 - Acute pharyngitis, unspecified, Z90.89 - Acquired absence of other organs CT soft tissue neck wo IV con Today D80.2 - Selective deficiency of immunoglobulin A [IgA], H69.90 - Unspecified Eustachian tube disorder, unspecified ear, J02.9 - Acute pharyngitis, unspecified, Z90.89 - Acquired absence of other organs Medications: New montelukast (Singulair) 10 mg PO BEDTIME 30 tabs 0RF fluticasone propionate 220 mcg/actuation 1 puff inhalation BID 12 grams 3RF Refilled albuterol sulfate 90 mcg/actuation (ProAir HFA) 2 puffs inhalation Q4-6H 30 days PRN 8.5 grams 2RF shortness of breath or wheezing Discontinued montelukast Discontinued Reason: Doctor's Order 5 mg PO DAILY 30 days 30 tabs 2RF fluticasone propionate 110 mcg/actuation administer with spacer Discontinued Reason: Doctor's Order 1 puff inhalation BID 30 days 12 grams 2RF Coding Level of Care Code Est Pt Level 5 (29811) Diagnoses 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
[2023-07-20 08:13] VITALS: BP 114/60; PULSE 97; BMI 33.1
== END 2023-07-20 08:49 | disposition home or self-care (01) ==
PROVIDERS: PCP Family Medicine; Visit Provider Nurse Practitioner Family
DX: D80.2 Selective deficiency of immunoglobulin A [IgA] (principal); J02.9 Acute pharyngitis, unspecified; Z90.89 Acquired absence of other organs; J45.998 Other asthma
CPT/HCPCS: 99215

== ENCOUNTER 2023-07-20 08:39 | Outpatient (REF) | payer OTHER, SELFPAY ==
[2023-07-20 11:31] LABS: Hematocrit 44.1 % (37.0-47.0); Hemoglobin 14.7 g/dl (12.0-16.0); Mean Corpuscular HGB Conc 33.3 g/dl (31.0-35.0); Mean Corpuscular Hemoglobin 31.2 pg (27.0-33.0); Mean Corpuscular Volume 93.6 fL (80.0-98.0); Platelet Count 229 X10*3/uL (160-400); Red Blood Count 4.71 X10*6/uL (4.20-5.50); White Blood Count 7.4 X10*3/uL (4.8-10.8)
[2023-07-20 13:49] LABS: Monotest Negative (Negative)
[2023-07-23 14:04] LABS: Streptolysin O Antibody <50 IU/mL (<200)
== END 2023-07-20 08:40 | disposition home or self-care (01) ==
LOC: HO.WFDLDS 08:39
PROVIDERS: Visit Provider Nurse Practitioner Family
DX: D80.2 Selective deficiency of immunoglobulin A [IgA] (principal); J02.9 Acute pharyngitis, unspecified
CPT/HCPCS: 36415; 85027; 86060; 86308

== ENCOUNTER 2023-07-27 10:13 | Outpatient (AMB) | payer OTHER, SELFPAY ==
[2023-07-27 10:17] VITALS: BP 106/60; PULSE 89; RESP 13; O2SAT 98; BMI 32.4
--- NOTE | 2023-07-27 10:17 | MHC.PC.OV ---
Vital Signs 07/27/23 10:17 Height 5 ft 4 in Weight 189 lb BMI 32.4 BP 106/60 Blood Pressure Location Rt brachial Respiration 13 Pulse 89 Pulse Source Pulse Oximeter Pulse Oximetry (%) 98 Oxygen Delivery Method Room Air Intake Visit Reasons: Asthma, Left ear pain Intake Note: Patient is here for a follow up for ear pain and asthma. Field Marketing Representative Required: No Accompanied by: Self / Same As Patient Allergies cefprozil [From CEFZIL] Allergy (Intermediate, Verified 07/27/23 10:43) UNKNOWN Cefzil Allergy (Unknown, Uncoded 07/27/23 10:43) unsure Medication List - Last Reconciled 07/27/23 by Chely Ames, [employer]- albuterol sulfate 90 mcg/actuation (ProAir HFA) 2 puffs inhalation Q4-6H PRN 30 days fluticasone propionate 220 mcg/actuation 1 puff inhalation BID ipratropium-albuterol 0.5 mg-3 mg(2.5 mg base)/3 mL 3 mL inhalation QID PRN magnesium sulfate 100 mg PO BID montelukast 5 mg PO BEDTIME nebulizer accessories As directed nebulizers As directed ondansetron 4 mg PO Q8H PRN 4 days Tobacco use date assessed: 06/19/23 Dental Screening Dental Screen Date: 07/27/23 Did you have a dental visit in the last 12 months?: No Did you have a dental problem in the last 6 months where you did not have access to dental care?: No Was dental information given to patient?: Patient has dentist HPI HPI Comments History of Present Illness Details Here today for f/u of chronic L ear pain, sore throat & asthma. Labs 07/20/2023 showed negative mono, negative anti streptolysin antibody, normal CBC. CT of soft tissue neck without contrast and CT of sinuses pending -- PA required. Did not get neb - did not have time. Breathing is ok. Increased singulair and this caused diarrhea. Reduced back to 5mg QHS w/ resolution. Cont taking Magnesium. Over the last few days, felt a growth behind R ear. Not painful. Left ear remains painful. No worse since last visit. Sore throat cont/ w/ lesion, feels the area is not as big at start of day, gets bigger as day progresses. Constitutional sx remain the same. PFSH Medical History Hx of migraines Surgical History No pertinent past surgical history Social History Household Members: Spouse and Children Housing: House 75 years or older and lives alone: No Alcohol intake: former Patient Tobacco Use Status: Former Tobacco user e-Cigarette/Vaping Use: Never Used service: No Current occupational status: employed Current occupation: [employer] @ [employer] Current occupational exposures/hazards: No Cognitive needs: No Hearing needs: No Vision needs: No Questionnaire PHQ-9 Over the last 2 weeks, how often have you been bothered by any of the following problems? 1. Little interest or pleasure in doing things: several days 2. Feeling down, depressed, or hopeless: not at all 3. Trouble falling or staying asleep, or sleeping too much: several days 4. Feeling tired or having little energy: several days 5. Poor appetite or overeating: not at all 6. Feeling bad about yourself - or that you are a failure or have let yourself or your family down: not at all 7. Trouble concentrating on things, such as reading the newspaper or watching television: several days 8. Moving or speaking so slowly that other people could have noticed. Or the opposite - being so fidgety or restless that you have been moving around a lot more than usual: not at all 9. Thoughts that you would be better off or of hurting yourself in some way: not at all Total score: 4 Depression Screening Interpretation: Negative Depression Screening Done: Yes 31677 - PHQ-9 Billing: Yes Source: Developed by Drs. Rob Richardson, Mercedez Keene, Cisco Sumner and colleagues, with an educational chela from [employer]. Thrive Questionnaire Date Thrive assessed: 07/27/23 I am a: Patient What is your living situation today?: I have a steady place to live Within the past 12 months, did the food you bought not last and you didn't have the money to get more?: Never true Within the past 12 months, did you worry whether your food would run out before you got money to buy more?: Never true Do you have trouble paying for medicines?: No Do you have trouble getting transportation to medical appointments?: No Do you have trouble paying your heating and electricity bill?: No Do you have trouble taking care of your child, family member or friend?: No Do you have trouble with day-to-day activities such as bathing, preparing meals, shopping, managing finances, etc.?: No Are you currently unemployed and looking for a job?: No Are you interested in more education?: No Please select the resources that you would like help with: None Currently or been in a relationship where the following occur: no concerns reported THRIVE Score: 0 AUDIT C Alcohol Use Questionnaire (AUDIT-C) 1. How often do you have a drink containing alcohol?: Never 3. How often do you have six or more drinks on one occasion?: Never Total Score: 0 JAK-7 AMB Questionnaire JAK-7 Date JAK - 7 assessed: 07/27/23 Feeling nervous, anxious, or on edge: 3 = Nearly every day Not being able to stop or control worryin = Several days Worrying too much about different things: 3 = Nearly every day Trouble relaxin = Nearly every day Being so restless that it is hard to sit still: 0 = Not at all Becoming easily annoyed or irritable: 3 = Nearly every day Feeling afraid as if something awful might happen: 1 = Several days Total JAK-7 score (0-4 normal; 5-9 mild; 10-14 moderate; 15-21 severe): 14 Source: Developed by Drs. Rob Richardson, Mercedez Keene, Cisco Sumner and colleagues, with an educational hcela from [employer]. JAK-7 Assessment Billing JAK-7 Assessment Tool: JAK-7 Assessment 93811 ACT Questionnaire In the past 4 weeks, how much of the time did your asthma keep you from getting as much done at work, school or at home?: None of the time During the past 4 weeks, how often have you had shortness of breath?: More than once a day During the past 4 weeks, how often did your asthma symptoms wake you up at night or earlier than usual in the morning?: 4 or more nights a week During the past 4 weeks, how often have you had to use your rescue inhaler or nebulizer medication?: More than 3 times per day How would you rate your asthma control during the past 4 weeks?: Not controlled at all ACT Interpretation: Positive Score: 9 Review of Systems Const All systems reviewed & are unremarkable except as noted in HPI and below Physical exam (Primary Care) Vital Signs: Last Vital Signs Pulse 89 07/27/23 10:17 Resp 13 07/27/23 10:17 BP 106/60 07/27/23 10:17 Pulse Ox 98 07/27/23 10:17 Oxygen Delivery Method Room Air 07/27/23 10:17 BMI result Body Mass Index 32.4 Tobacco/Smoking Status: Tobacco use Status Tobacco use date assessed 06/19/23 07/27/23 10:24 Patient Tobacco Use Status Former Tobacco user 07/27/23 10:24 e-Cigarette/Vaping Use Never Used 07/27/23 10:24 PHQ-9: PHQ-9 Score PHQ-9: Total score 4 07/27/23 15:33 Depression Screening Interpretation: Negative Thrive Assessment: Date of Thrive Assessment Date Thrive assessed 07/27/23 07/27/23 10:28 Currently or been in a relationship where the following occur: no concerns reported Const Other: Awake alert NAD Sclera and conjunctiva clear bilat Cerumen in EAC R unable to see TM, L TM intact, looks mildly retracted w/ white discoloration to periphery from 3-6. Behind R ear is a soft, spongy raised skin lesion, skin above this is erythamtous & scaling. Skin below this mildly eczematous. Not warm to touch, no fluctuance to suggest cyst or the like. Posterior to this is cord like area and lymphadenopathy. Denies pain over mastoids w/ palp. MMM, pharynx + erythema, Left posterior pharynx with grouped raised erythematous lesions, uvula midline managing secretions Nares patent RRR LS clear throughout Assessment and Plan Assessment & Plan (1) Left ear pain: Code(s): H92.02 - Otalgia, left ear Plan: chronic. CT pending. ENT referral in process. (2) Pharyngitis: Comment: recurrent and present for > 1 month negative strep test last visit negative viral swab s/p tonsils and adenoid removal in childhood now w/ erythematous raised group lesions in posterior L pharynx mono, streptolysin AB and CBC WNL. 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 Code(s): D80.2 - Selective deficiency of immunoglobulin A [IgA] (4) Poorly controlled persistent asthma: Comment: Plan: Cont fluticasone propionate from 1 puff twice a day, Could not tolerate increase of Singulair as this caused diarrhea. Resume 5 mg daily, cont Flonase 2 sprays each nostril once per day. Was not able to get the nebulizer. Has prescription today and encouraged her to fill it and to try this. This note is constructed using voice recognition software. While every effort has been made to ensure accuracy in motor vehicle dispatcher, still errors may have been included Sometimes, these errors may affect the content or meaning of the given sentence . Total time spent caring for the patient today was 45 minutes. This includes time spent before the visit reviewing the chart, time spent during the visit, and time spent after the visit on documentation Code(s): J45.998 - Other asthma (5) Lesion of skin of right ear: Comment: new finding today. Does not appear to be a cyst or mastoiditis. Plan: add mastoid view to CT scan. FU in 1 week. Ok to apply warm moist comps. Remove earrings and keep out. Keep skin clean Code(s): H61.91 - Disorder of right external ear, unspecified Patient Instructions: Return to office in 7-10 days to follow up on the CT scan results. Sooner if needed. 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
== END 2023-07-27 11:44 | disposition home or self-care (01) ==
PROVIDERS: PCP Family Medicine; Visit Provider Nurse Practitioner Family
DX: H92.02 Otalgia, left ear (principal); J02.9 Acute pharyngitis, unspecified; D80.2 Selective deficiency of immunoglobulin A [IgA]; J45.998 Other asthma; H61.91 Disorder of right external ear, unspecified
CPT/HCPCS: 99215

== ENCOUNTER 2023-08-29 09:03 | Outpatient (AMB) | payer OTHER, SELFPAY ==
--- NOTE | 2023-08-29 09:13 | A.OFFPC_ITS ---
Vital Signs 08/29/23 09:19 Height 5 ft 4 in Weight 187 lb BMI 32.1 BP 116/75 Blood Pressure Location Rt brachial Position Sitting Respiration 13 Pulse 77 Pulse Source Pulse Oximeter Temp 97.9 F Temp Source Temporal Artery Scan Pulse Oximetry (%) 99 Oxygen Delivery Method Room Air Intake Visit Reasons: Ear/Throat Recheck Intake Note: Patient is here for a recheck of her throat. Patient reports she does not have a sore throat anymore. Patient is wondering if the CT is still needed. Credit Rating Checker Required: No Accompanied by: Self / Same As Patient Allergies cefprozil [From CEFZIL] Allergy (Intermediate, Verified 08/29/23 09:30) UNKNOWN Cefzil Allergy (Unknown, Uncoded 08/29/23 09:22) unsure Medication List - Last Reconciled 08/29/23 by Chely Ames, [facility]- albuterol sulfate 90 mcg/actuation (ProAir HFA) 2 puffs inhalation Q4-6H PRN 30 days fluticasone propionate 220 mcg/actuation 1 puff inhalation BID ipratropium-albuterol 0.5 mg-3 mg(2.5 mg base)/3 mL 3 mL inhalation QID PRN magnesium sulfate 100 mg PO BID montelukast 5 mg PO BEDTIME nebulizer accessories As directed nebulizers As directed ondansetron 4 mg PO Q8H PRN 4 days Tobacco use date assessed: 06/19/23 Dental Screening Dental Screen Date: 07/27/23 HPI HPI Comments History of Present Illness Details Here today for f/u of chronic L ear pain, sore throat Since last visit, sore throat is gone. Unsure about lesion in back of throat. L ear still fears iffy Area behind R ear popped - unsure of what came out of it. Still has a small bump. It was very itchy Tolerating singulair 5mg w/o side effects. Still has not gotten updraft Has a high copay for her CT and prefers to not get done, unless needed. PA was approved. ENT appt not until 12/2023 New complaint: Feels super nauseas all of the time and epigastric pain; intermittent, worse in the AM. This has been ongoing for months, Does vomit - reports bilious liquid. Reports home preg test negative. [facility] Medical History Hx of migraines Surgical History No pertinent past surgical history Social History Household Members: Spouse and Children Housing: House 75 years or older and lives alone: No Alcohol intake: former Patient Tobacco Use Status: Former Tobacco user e-Cigarette/Vaping Use: Never Used service: No Current occupational status: employed Current occupation: [employer] @ [employer] Current occupational exposures/hazards: No Cognitive needs: No Hearing needs: No Vision needs: No Questionnaire Thrive Questionnaire Date Thrive assessed: 07/27/23 JAK-7 AMB Questionnaire JAK-7 Date JAK - 7 assessed: 07/27/23 Source: Developed by Drs. Rob Richardson, Mercedez Keene, Cisco Sumner and colleagues, with an educational chela from [employer]. Review of Systems Const All systems reviewed & are unremarkable except as noted in HPI and below Physical exam (Primary Care) Vital Signs: Last Vital Signs Temp 97.9 F 08/29/23 09:19 Pulse 77 08/29/23 09:19 Resp 13 08/29/23 09:19 BP 116/75 08/29/23 09:19 Pulse Ox 99 08/29/23 09:19 Oxygen Delivery Method Room Air 08/29/23 09:19 BMI result Body Mass Index 32.1 Tobacco/Smoking Status: Tobacco use Status Tobacco use date assessed 06/19/23 08/29/23 09:14 Patient Tobacco Use Status Former Tobacco user 08/29/23 09:14 e-Cigarette/Vaping Use Never Used 08/29/23 09:14 Thrive Assessment: Date of Thrive Assessment Date Thrive assessed 07/27/23 08/29/23 09:14 Const Other: Awake alert NAD Sclera and conjunctiva clear bilat Cerumen in EAC R unable to see TM, L TM intact, looks mildly retracted w/ white discoloration to periphery from 3-6. Behind R ear the previous soft, spongy raised skin lesion, skin above this is erythamtous & scaling is improved with only a small cyst like area noted behind lobe. No drainages or warmth. Posterior to this is cord like area and lymphadenopathy - resolved. Denies pain over mastoids w/ palp. MMM, pharynx + erythema, Left posterior pharynx with grouped raised erythematous lesions, uvula midline managing secretions Nares patent RRR LS clear throughout Assessment and Plan Assessment & Plan (1) Lesion of skin of right ear: Comment: improved since last visit w/o intervention. Code(s): H61.91 - Disorder of right external ear, unspecified (2) Pharyngitis: Comment: recurrent and present for > 1 month negative strep test last visit negative viral swab s/p tonsils and adenoid removal in childhood now w/ erythematous raised group lesions in posterior L pharynx mono, streptolysin AB and CBC WNL. and CT of neck/sinus and bring back for f/u Code(s): J02.9 - Acute pharyngitis, unspecified Qualifiers: Pharyngitis/tonsillitis etiology: unspecified etiology Qualified Code(s): J02.9 - Acute pharyngitis, unspecified (3) Epigastric pain: Comment: check stool for H Pylori Code(s): R10.13 - Epigastric pain Plan also cont w/ abnormal finding of L TM she is agreeable to get CT done and f/u with me for results along w/ ENT in December This note is constructed using voice recognition software. While every effort has been made to ensure accuracy in administrative support manager, still errors may have been included Sometimes, these errors may affect the content or meaning of the given sentence . Total time spent caring for the patient today was 45 minutes. This includes time spent before the visit reviewing the chart, time spent during the visit, and time spent after the visit on documentation Orders: Orders H pylori Ag Stool Today R10.13 - Epigastric pain Patient Instructions: RTO IN A FEW WEEKS TO DISCUSS CT SCAN RESULTS Coding Level of Care Code Est Pt Level 5 (74399) Diagnoses Lesion of skin of right ear H61.91 Pharyngitis, unspecified etiology J02.9 Pharyngitis/tonsillitis etiology: unspecified etiology Epigastric pain R10.13
[2023-08-29 09:19] VITALS: BP 116/75; PULSE 77; RESP 13; TEMP 36.6; O2SAT 99; BMI 32.1
== END 2023-08-29 10:04 | disposition home or self-care (01) ==
PROVIDERS: PCP Family Medicine; Visit Provider Nurse Practitioner Family
DX: H61.91 Disorder of right external ear, unspecified (principal); J02.9 Acute pharyngitis, unspecified; R10.13 Epigastric pain
CPT/HCPCS: 99215

== ENCOUNTER 2023-10-04 13:39 | Outpatient (AMB) | payer OTHER, SELFPAY ==
[2023-10-04 13:49] VITALS: BP 136/61; PULSE 87; RESP 13; TEMP 36; O2SAT 98; BMI 34.0
--- NOTE | 2023-10-04 13:49 | MHC.PC.OV ---
Vital Signs 10/04/23 13:49 Height 5 ft 4 in Weight 198 lb 4 oz BMI 34.0 BP 136/61 Blood Pressure Location Rt brachial Position Sitting Respiration 13 Pulse 87 Pulse Source Pulse Oximeter Temp 96.8 F Temp Source Temporal Artery Scan Pulse Oximetry (%) 98 Oxygen Delivery Method Room Air Intake Visit Reasons: CT scan results Carpet Or Rug Layer Helper Required: No Accompanied by: Self / Same As Patient Allergies cefprozil [From CEFZIL] Allergy (Intermediate, Verified 10/04/23 13:52) UNKNOWN Cefzil Allergy (Unknown, Uncoded 08/29/23 09:22) unsure Medication List - Last Reconciled 10/04/23 by INDIO Mireles-LORETTA albuterol sulfate 90 mcg/actuation (ProAir HFA) 2 puffs inhalation Q4-6H PRN 30 days fluticasone propionate 220 mcg/actuation 1 puff inhalation BID ipratropium-albuterol 0.5 mg-3 mg(2.5 mg base)/3 mL 3 mL inhalation QID PRN magnesium sulfate 100 mg PO BID montelukast 5 mg PO BEDTIME nebulizer accessories As directed nebulizers As directed ondansetron 4 mg PO Q8H PRN 4 days Tobacco use date assessed: 06/19/23 Dental Screening Dental Screen Date: 07/27/23 HPI HPI Comments History of Present Illness Details Here today to f/u on CT results, ongoing ear pain, sinus congestion and asthma CT reviewed on her phone as results are not available to me - requested. CT findings WNL. had drainage from left ear since last visit after feeling a pop cont to feel sinus congestion taking all meds as directed had change in insurance so Dec ENT appt was cancelled wonders about new allergy testing, last time was 2015 not getting shots at current as it caused significant local reaction Plan: Refer to ENT for allergy testing. Refer to [facility] - Dr Kaur as he has experience w/ patients w/ IG def + asthma. Lavage today Start Medrol dose pack to help w/ fluid in TM. 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 Rob Richardson, Mercedez Keene, Cisco Sumner and colleagues, with an educational chela from [employer]. Review of Systems Const All systems reviewed & are unremarkable except as noted in HPI and below Physical exam (Primary Care) Vital Signs: Last Vital Signs Temp 96.8 F 10/04/23 13:49 Pulse 87 10/04/23 13:49 Resp 13 10/04/23 13:49 BP 136/61 10/04/23 13:49 Pulse Ox 98 10/04/23 13:49 Oxygen Delivery Method Room Air 10/04/23 13:49 BMI result Body Mass Index 34.0 Tobacco/Smoking Status: Tobacco use Status Tobacco use date assessed 06/19/23 10/04/23 13:53 Patient Tobacco Use Status Former Tobacco user 10/04/23 13:53 e-Cigarette/Vaping Use Never Used 10/04/23 13:53 Thrive Assessment: Date of Thrive Assessment Date Thrive assessed 07/27/23 10/04/23 13:53 Const Other: Awake alert NAD Sclera and conjunctiva clear bilat Cerumen impaction bilat - lavage; TM intact bilat. EAC erythematous and aggravated. Mild injection left TM. + fluid behind R TM. None noted on left. Behind R ear the previous soft, spongy raised skin lesion, skin above this is brown & scalingh. 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 Code(s): D80.2 - Selective deficiency of immunoglobulin A [IgA] (2) Seasonal allergies: Code(s): J30.2 - Other seasonal allergic rhinitis (3) Status post tonsillectomy and adenoidectomy: Code(s): Z90.89 - Acquired absence of other organs (4) Poorly controlled persistent asthma: Comment: Plan: Cont fluticasone propionate from 1 puff twice a day, Could not tolerate increase of Singulair as this caused diarrhea. Resume 5 mg daily, cont Flonase 2 sprays each nostril once per day. . Code(s): J45.998 - Other asthma (5) Pharyngitis: Comment: recurrent and present for > 1 month negative strep test last visit negative viral swab s/p tonsils and adenoid removal in childhood now w/ erythematous raised group lesions in posterior L pharynx mono, streptolysin AB and CBC WNL. CT of neck/sinus NORMAL 09/2023 Code(s): J02.9 - Acute pharyngitis, unspecified Qualifiers: Pharyngitis/tonsillitis etiology: unspecified etiology Qualified Code(s): J02.9 - Acute pharyngitis, unspecified (6) Lesion of skin of right ear: Comment: improved since last visit w/o intervention. Code(s): H61.91 - Disorder of right external ear, unspecified Plan: This note is constructed using voice recognition software. While every effort has been made to ensure accuracy in manager parking, still errors may have been included Sometimes, these errors may affect the content or meaning of the given sentence . Total time spent caring for the patient today was 65 minutes. This includes time spent before the visit reviewing the chart, time spent during the visit, and time spent after the visit on documentation Orders: Referrals Pulmonology Referral D80.2 - Selective deficiency of immunoglobulin A [IgA], J45.909 - Unspecified asthma, uncomplicated Ear/Nose/Throat Referral H65.02 - Acute serous otitis media, left ear, J30.2 - Other seasonal allergic rhinitis, Z90.89 - Acquired absence of other organs Medications: New methylprednisolone (Medrol (Ameya)) PO PER PKG DIR 21 ea 0RF Patient Instructions: RTO 1 WEEK FU Coding Level of Care Code Est Pt Level 5 (25141) Diagnoses 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
== END 2023-10-04 16:20 | disposition home or self-care (01) ==
PROVIDERS: PCP Family Medicine; Visit Provider Nurse Practitioner Family
DX: D80.2 Selective deficiency of immunoglobulin A [IgA] (principal); H61.23 Impacted cerumen, bilateral; J30.2 Other seasonal allergic rhinitis; Z90.89 Acquired absence of other organs; J45.998 Other asthma; J02.9 Acute pharyngitis, unspecified; H61.91 Disorder of right external ear, unspecified
CPT/HCPCS: 69210; 99215; 99417

== ENCOUNTER 2023-10-15 11:21 | Outpatient (AMB) | payer OTHER, SELFPAY ==
--- NOTE | 2023-10-15 11:29 | MHC.PC.OV ---
Vital Signs 10/15/23 11:33 Height 5 ft 4 in Weight 195 lb 8 oz BMI 33.6 BP 110/74 Blood Pressure Location Rt brachial Position Sitting Respiration 12 Pulse 106 H Pulse Source Pulse Oximeter Temp 98.2 F Temp Source Oral Intake Visit Reasons: ENT 30 min Intake Note: Follow up. Requesting not to have ear lavage because she was dizzy and had a headache after. Allergies cefprozil [From CEFZIL] Allergy (Intermediate, Verified 10/15/23 12:05) UNKNOWN Cefzil Allergy (Unknown, Uncoded 10/15/23 12:05) unsure Medication List - Last Reconciled 10/15/23 by ROHAN Mireles albuterol sulfate 90 mcg/actuation (ProAir HFA) 2 puffs inhalation Q4-6H PRN 30 days fluticasone propionate 220 mcg/actuation 1 puff inhalation BID magnesium sulfate 100 mg PO BID montelukast 5 mg PO BEDTIME nebulizer accessories As directed nebulizers As directed ondansetron 4 mg PO Q8H PRN 4 days Tobacco use date assessed: 10/15/23 Dental Screening Dental Screen Date: 07/27/23 HPI HPI Comments History of Present Illness Details Here today for routine close FU s/p medrol dose pack no change - better or worse no improvement in her allergy sx - off the chart eligibility counselor appt in December appt w/ Pulm in November Wonders about screening labs for DM. + Gestational DM. 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 Review of Systems Const All systems reviewed & are unremarkable except as noted in HPI and below Physical exam (Primary Care) Vital Signs: Last Vital Signs Temp 98.2 F 10/15/23 11:33 Pulse 106 H 10/15/23 11:33 Resp 12 10/15/23 11:33 BP 110/74 10/15/23 11:33 BMI result Body Mass Index 33.6 Tobacco/Smoking Status: Tobacco use Status Tobacco use date assessed 10/15/23 10/15/23 11:35 Patient Tobacco Use Status Former Tobacco user 10/15/23 11:32 e-Cigarette/Vaping Use Never Used 10/15/23 11:32 Thrive Assessment: Date of Thrive Assessment Date Thrive assessed 07/27/23 10/15/23 11:32 Const Other: Awake alert NAD Sclera and conjunctiva clear bilat Mild injection left TM resolved, + fluid behind R TM mild improvement, EAC dry and flaky bilat. Behind R ear the previous soft, spongy raised skin lesion, skin above this is brown & scalingh. MMM, pharynx no erythema, Left posterior pharynx with grouped raised erythematous lesions, uvula midline managing secretions Nares patent RRR LS clear throughout Assessment and Plan Assessment & Plan (1) Eustachian tube dysfunction: Code(s): H69.90 - Unspecified Eustachian tube disorder, unspecified ear Qualifiers: Laterality: bilateral Qualified Code(s): H69.93 - Unspecified Eustachian tube disorder, bilateral (2) Laboratory exam ordered as part of routine general medical examination: Code(s): Z00.00 - Encounter for general adult medical examination without abnormal findings Plan: This note is constructed using voice recognition software. While every effort has been made to ensure accuracy in mass spectrometry specialist, still errors may have been included Sometimes, these errors may affect the content or meaning of the given sentence . Total time spent caring for the patient today was 30 minutes. This includes time spent before the visit reviewing the chart, time spent during the visit, and time spent after the visit on documentation Orders: Orders Hemoglobin A1c Today Z00.00 - Encounter for general adult medical examination without abnormal findings Comprehensive Met. Panel Today Z00.00 - Encounter for general adult medical examination without abnormal findings TSH reflex Free T4 Today Z00.00 - Encounter for general adult medical examination without abnormal findings LDL Cholesterol Direct Today Z00.00 - Encounter for general adult medical examination without abnormal findings Patient Instructions: FU with ENT, Pulm and Allergy as scheduled Get routine screening labs done before next visit RTO in Jan for CPE, sooner as needed. Coding Level of Care Code Est Pt Level 4 (85086) Diagnoses Dysfunction of both eustachian tubes H69.93 Laterality: bilateral Laboratory exam ordered as part of routine general medical examination Z00.00
[2023-10-15 11:33] VITALS: BP 110/74; PULSE 106; RESP 12; TEMP 36.8; BMI 33.6
== END 2023-10-15 12:17 | disposition home or self-care (01) ==
PROVIDERS: PCP Family Medicine; Visit Provider Nurse Practitioner Family
DX: H69.93 Unspecified Eustachian tube disorder, bilateral (principal); Z00.00 Encounter for general adult medical examination without abnormal findings
CPT/HCPCS: 99214

== ENCOUNTER 2023-10-22 11:38 | Outpatient (AMB) | payer OTHER, SELFPAY ==
[2023-10-22 11:42] VITALS: BP 104/66; PULSE 100; RESP 14; O2SAT 99; BMI 33.8
--- NOTE | 2023-10-22 11:42 | MHC.OFFWIV ---
Intake Vital Signs 10/22/23 11:42 Height 5 ft 4 in Weight 197 lb BMI 33.8 BP 104/66 Blood Pressure Location Rt brachial Position Sitting Respiration 14 Pulse 100 Pulse Source Pulse Oximeter Temp Source Temporal Artery Scan Pulse Oximetry (%) 99 Oxygen Delivery Method Room Air Intake Visit Reasons: Lymph node swelling Patient Tobacco Use Status: Former Tobacco user Medical Services Assistant Required: No Accompanied by: Self / Same As Patient Allergies cefprozil [From CEFZIL] Allergy (Intermediate, Verified 10/22/23 12:04) UNKNOWN Cefzil Allergy (Unknown, Uncoded 10/15/23 12:05) unsure Do you need a note to return to daycare/school/sports/work: No HPI HPI Comments History of Present Illness Details Here today with complaints of a swollen gland. This AM when eating cereal, noticed a golf ball sized lymph node on the right side , underneath her jaw line and chin. under tongue feels like lymph nodes are swollen but only on the right side. Did have a sore throat this Am but this is now improved. Resolved w/in 30 min of waking prior to taking APAP APAP 1000mg prior to coming ENT appt 01/[address] is better at this time Reports that the lymph node on the right side started before the tongue swelling. Last dental appointment greater than 1 year ago Denies constitutional symptoms Does have problems with recurrent lymphadenopathy, pharyngitis amongst other things. 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/hazards: No Sexual orientation: Straight/Heterosexual Gender identity: Female Cognitive needs: No Hearing needs: No Vision needs: No Review of Systems Const All systems reviewed & are unremarkable except as noted in HPI and below Physical Exam Vital Signs: Last Vital Signs Pulse 100 10/22/23 11:42 Resp 14 10/22/23 11:42 BP 104/66 10/22/23 11:42 Pulse Ox 99 10/22/23 11:42 Oxygen Delivery Method Room Air 10/22/23 11:42 BMI result Body Mass Index 33.8 HEENT Other: mild edema to right sublingual caruncle tongue ring present Neck Lymphatic: lymphadenopathy right submandibular single, small, soft and mobile Assessment & Plan Assessment & Plan (1) Sialadenitis: Code(s): K11.20 - Sialoadenitis, unspecified Plan: . Plan This note is constructed using voice recognition software. While every effort has been made to ensure accuracy in air liaison and special staff, still errors may have been included Sometimes, these errors may affect the content or meaning of the given sentence . Total time spent caring for the patient today was 30 minutes. This includes time spent before the visit reviewing the chart, time spent during the visit, and time spent after the visit on documentation Exam today likely a result of a salivary gland issue. We will try for conservative management 1st and bring her back for a close follow up. I do think that she should follow up with a dentist in the next week sooner rather than later. Patient Instructions: Salt water gargles often gentle massage dental appt then f/u with me next week if fever, chills, worsening come back sooner Coding Level of Care Code Est Pt Level 4 (96323) Diagnoses Sialadenitis K11.20
== END 2023-10-22 12:06 | disposition home or self-care (01) ==
PROVIDERS: PCP Family Medicine; Visit Provider Nurse Practitioner Family
DX: K11.20 Sialoadenitis, unspecified (principal)
CPT/HCPCS: 99214

== ENCOUNTER 2023-10-26 08:03 | Outpatient (REF) | payer OTHER, SELFPAY ==
[2023-10-26 11:36] LABS: Estimated Average Glucose 100 mg/dL; Hemoglobin A1c % 5.1 % (<6.0)
[2023-10-26 12:18] LABS: Alanine Aminotransferase 11 U/L (0-31); Albumin Level 4.3 g/dL (3.5-5.0); Alkaline Phosphatase 78 U/L (39-117); Anion Gap 11 (12-20); Aspartate Amino Transferase 15 U/L (5-31); Bilirubin Total 0.6 mg/dL (0.0-1.0); Blood Urea Nitrogen 11 mg/dL (9-16); Calcium 9.8 mg/dL (8.4-10.2); Carbon Dioxide 27 mmol/L (22-29); Chloride 107 mmol/L (96-108); Estimated Glomerular Filt Rate > 60; Glucose Random 88 mg/dL (60-115); Potassium 3.7 mmol/L (3.3-5.1); Sodium 141 mmol/L (135-145); TSH reflex Free T4 1.12 uIU/mL (0.32-4.0); Total Protein 7.1 g/dL (6.5-8.0)
[2023-10-27 10:03] LABS: LDL Cholesterol Direct 92 mg/dL (<100)
== END 2023-10-26 08:04 | disposition home or self-care (01) ==
LOC: HO.WFDLDS 08:03
PROVIDERS: Visit Provider Nurse Practitioner Family
DX: Z00.00 Encounter for general adult medical examination without abnormal findings (principal); Z13.89 Encounter for screening for other disorder; Z13.1 Encounter for screening for diabetes mellitus
CPT/HCPCS: 36415; 80053; 83036; 83721; 84443

== ENCOUNTER 2023-10-26 09:39 | Outpatient (AMB) | payer OTHER, SELFPAY ==
--- NOTE | 2023-10-26 09:43 | MHC.OFFWIV ---
Intake Intake Visit Reasons: Needs a referral Patient Tobacco Use Status: Former Tobacco user Allergies cefprozil [From CEFZIL] Allergy (Intermediate, Verified 10/22/23 12:04) UNKNOWN Cefzil Allergy (Unknown, Uncoded 10/15/23 12:05) unsure [facility] Medical History (Updated 10/22/23 @ 12:02 by Chely Ames, [facility]) Asthma exacerbation Otitis media Asthma Hx of migraines Surgical History No pertinent past surgical history Social History Household Members: Spouse and Children Housing: House 75 years or older and lives alone: No Alcohol intake: former Patient Tobacco Use Status: Former Tobacco user e-Cigarette/Vaping Use: Never Used service: No Current occupational status: employed 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
[2023-10-26 09:46] VITALS: BP 102/70; PULSE 89; RESP 14; TEMP 36.1; O2SAT 99; BMI 33.7
--- NOTE | 2023-10-26 09:48 | A.OFFPC_ITS ---
Vital Signs 10/26/23 09:46 Height 5 ft 4 in Weight 196 lb 6 oz BMI 33.7 BP 102/70 Blood Pressure Location Rt brachial Position Sitting Respiration 14 Pulse 89 Pulse Source Pulse Oximeter Temp 97 F Temp Source Temporal Artery Scan Pulse Oximetry (%) 99 Oxygen Delivery Method Room Air Intake Visit Reasons: Needs a referral Intake Note: Patient needs urgent referral to ENT. Prop Making Supervisor Required: No Accompanied by: Self / Same As Patient Allergies cefprozil [From CEFZIL] Allergy (Intermediate, Verified 10/26/23 09:51) UNKNOWN Cefzil Allergy (Unknown, Uncoded 10/15/23 12:05) unsure Medication List - Last Reconciled 10/26/23 by ROHAN Mireles albuterol sulfate 90 mcg/actuation (ProAir HFA) 2 puffs inhalation Q4-6H PRN 30 days fluticasone propionate 220 mcg/actuation 1 puff inhalation BID magnesium sulfate 100 mg PO BID montelukast 5 mg PO BEDTIME nebulizer accessories As directed nebulizers As directed ondansetron 4 mg PO Q8H PRN 4 days Tobacco use date assessed: 10/15/23 Dental Screening Dental Screen Date: 07/27/23 HPI HPI Comments History of Present Illness Details Went to for the same complaint yesterday was given [place] dentist wont see her [facility] Medical History (Updated 10/22/23 @ 12:02 by ROHAN Mireles) Asthma exacerbation Otitis media Asthma Hx of migraines Surgical History No pertinent past surgical history Family History Maternal Grandfather Bladder cancer Social History Household Members: Spouse and Children Housing: House 75 years or older and lives alone: No Alcohol intake: former Patient Tobacco Use Status: Former Tobacco user e-Cigarette/Vaping Use: Never Used service: No Current occupational status: employed Current occupation: [employer] Current occupational exposures/hazards: No Sexual orientation: Straight/Heterosexual Gender identity: Female Cognitive needs: No Hearing needs: No Vision needs: No Questionnaire Thrive Questionnaire Date Thrive assessed: 07/27/23 JAK-7 AMB Questionnaire JAK-7 Date JAK - 7 assessed: 07/27/23 Source: Developed by Drs. Rob Richardson, Mercedez Keene, Cisco Sumenr and colleagues, with an educational chela from [employer]. Review of Systems Const All systems reviewed & are unremarkable except as noted in HPI and below Physical exam (Primary Care) Vital Signs: Last Vital Signs Temp 97 F 10/26/23 09:46 Pulse 89 10/26/23 09:46 Resp 14 10/26/23 09:46 BP 102/70 10/26/23 09:46 Pulse Ox 99 10/26/23 09:46 Oxygen Delivery Method Room Air 10/26/23 09:46 BMI result Body Mass Index 33.7 Tobacco/Smoking Status: Tobacco use Status Tobacco use date assessed 10/15/23 10/26/23 09:52 Patient Tobacco Use Status Former Tobacco user 10/26/23 09:52 e-Cigarette/Vaping Use Never Used 10/26/23 09:52 Thrive Assessment: Date of Thrive Assessment Date Thrive assessed 07/27/23 10/26/23 09:52 Const Other: Unchanged exam today. Assessment and Plan Assessment & Plan (1) Sialadenitis: Code(s): K11.20 - Sialoadenitis, unspecified Plan This note is constructed using voice recognition software. While every effort has been made to ensure accuracy in foundry engineer, still errors may have been included Sometimes, these errors may affect the content or meaning of the given sentence . Total time spent caring for the patient today was 30 minutes. This includes time spent before the visit reviewing the chart, time spent during the visit, and time spent after the visit on documentation Orders: Referrals Ear/Nose/Throat Referral K11.20 - Sialoadenitis, unspecified Patient Instructions: Here today for an urgent referral to ENT. Was seen earlier this week for suspected sialadenitis. Recommended that she follow up with her dentist. However she was not able to get in. Since last visit she reports worsening sensations and went to urgent Care yesterday at [facility]. She was given a prescription for amoxicillin however was ultimately told that they also think this is sialadenitis and recommended ENT follow up. States that she has been taking sour candy to help facilitate saliva however this has not helped. Denies any fever, chills. Plan: Have note from today, my last note and your most recent CT scan faxed to ENT today I recommend having your UC visit from [facility] also faxed to them You will need to call and schedule appt with ENT STOP taking Ab RXd at UC this does not appear bacterial Hydrate liberally and cont to try sour items to facilitate moisture Coding Level of Care Code Est Pt Level 4 (72163) Diagnoses Sialadenitis K11.20
== END 2023-10-26 10:18 | disposition home or self-care (01) ==
PROVIDERS: PCP Family Medicine; Visit Provider Nurse Practitioner Family
DX: K11.20 Sialoadenitis, unspecified (principal)
CPT/HCPCS: 99214

== ENCOUNTER 2023-12-04 10:10 | Outpatient (AMB) | payer OTHER, SELFPAY ==
--- NOTE | 2023-12-04 10:33 | MHC.OFFVIS ---
Vital Signs 12/04/23 10:34 Height 5 ft 4 in Weight 183 lb BMI 31.4 BP 118/70 Blood Pressure Location Lt brachial Position Sitting Pulse 60 Pulse Source Pulse Oximeter Pulse Oximetry (%) 99 Oxygen Delivery Method Room Air Intake Visit Reasons: Asthma Pest Control Service Technician Required: No Allergies cefprozil [From CEFZIL] Allergy (Intermediate, Verified 12/04/23 10:36) UNKNOWN Cefzil Allergy (Unknown, Uncoded 12/04/23 10:36) unsure HPI Comments Details: The patient is here for pulmonary evaluation. The patient is a 28 year woman with a known history of asthma, chronic allergic rhinitis with worsening symptoms. The patient states that she was followed by Allergy many years. She did have blood work in the past demonstrating low IgA levels. In addition to that she had allergy testing with significant allergens. She did try the allergy shots but she had a hard time keeping up with the scheduled. 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 Now she is off her medications try to wean off completely and be able to get allergy testing again. In the meantime she continues have significant asthma symptoms. She has been on Flovent multiple inhalers. She has tried multiple inhalers in the past including Trelegy, Breo, Advair, Symbicort, Dulera and now them have been very effective for. She still has a hard time breathing. She required prednisone often. Although this year she had been trying to avoided even though she is having hard time with the breathing. She was prescribed a nebulizer which she could not pick it up. The patient really needs once specially with her significant wheezing on examination. We provided her while in the office through [employer]. The patient will continue to use her respiratory therapy although will go ahead and maximize her respiratory medications by trying her on Breztri and while she is optimizing the dose she can continue on the Flovent. Again with goals of minimizing prednisone use. Also some prednisone case her symptoms worsen however. The patient will get some blood work today. She does have severe asthma and based on that the fact that is uncontrolled she will benefit from biologic therapy as well. Therefore will do blood work including eosinophil levels and also IgE levels to see if she is a candidate for biologic therapy. Previous blood work demonstrated an elevated IgE in the past. Regards to the IgA levels have been slightly low back when it was checked back many years ago. Will go ahead and recheck all her levels at this time. 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 @ [employer] Current occupational exposures/hazards: No Sexual orientation: Straight/Heterosexual Gender identity: Female Cognitive needs: No Hearing needs: No Vision needs: No Review of Systems Const Denies fever(s) Eyes Denies change in vision ENT Reports nasal congestion Card Denies chest pain and Reports dyspnea on exertion Resp Reports cough, Reports dyspnea on exertion and Reports wheezing GI Reports heartburn Musc Reports no additional complaints Skin/Breast Denies rash Endo Reports no additional complaints Wisam/Lymph Denies easy bruising Aller/Immun Reports wheezing Physical Exam Vital Signs: Last Vital Signs Pulse 60 12/04/23 10:34 BP 118/70 12/04/23 10:34 Pulse Ox 99 12/04/23 10:34 Oxygen Delivery Method Room Air 12/04/23 10:34 BMI result Body Mass Index 31.4 Const General: comfortable HEENT Head: Yes normocephalic Neck Neck: Yes supple Chest Chest palpation & inspection: normal inspection of the chest Resp Effort & Inspection: normal respiratory effort and Actively coughing Auscultation: no wheezes and diminished lung sounds Cardio Heart sounds: S1 normal heart sound present and S2 normal heart sound present GI Palpation (GI): Soft to palpation Skin General skin exam: no rashes or lesions noted Extrem General: Yes no clubbing, cyanosis or edema Assessment & Plan Assessment & Plan (1) Asthma: Comment: Allergic asthma with elevated Eos Code(s): J45.909 - Unspecified asthma, uncomplicated Category: Medical Qualifiers: Asthma severity: severe Asthma persistence: persistent Asthma complication type: uncomplicated Qualified Code(s): J45.50 - Severe persistent asthma, uncomplicated (2) Bronchitis: Code(s): J40 - Bronchitis, not specified as acute or chronic Category: Medical (3) Chronic allergic rhinitis: Code(s): J30.9 - Allergic rhinitis, unspecified Category: Medical Plan Start Breztri continue flovent JO as needed Bloodwork consider BIologic therapy continue singulair continue anti histamine therapy Prednisone if worsens Provided a nebulizer for xopenex PFTs F/U 2 months Orders: Orders Immunoglobulin E Today J32.9 - Chronic sinusitis, unspecified, J40 - Bronchitis, not specified as acute or chronic, J45.909 - Unspecified asthma, uncomplicated Immunoglobulin G Subclasses Today J32.9 - Chronic sinusitis, unspecified, J40 - Bronchitis, not specified as acute or chronic, J45.909 - Unspecified asthma, uncomplicated Complete Blood Count Auto Diff Today J32.9 - Chronic sinusitis, unspecified, J40 - Bronchitis, not specified as acute or chronic, J45.909 - Unspecified asthma, uncomplicated Basic Metabolic Panel Today J32.9 - Chronic sinusitis, unspecified, J40 - Bronchitis, not specified as acute or chronic, J45.909 - Unspecified asthma, uncomplicated Erythrocyte Sedimentation Rate Today J32.9 - Chronic sinusitis, unspecified, J40 - Bronchitis, not specified as acute or chronic, J45.909 - Unspecified asthma, uncomplicated Immunoglobulins,IgG IgA IgM Today J32.9 - Chronic sinusitis, unspecified, J40 - Bronchitis, not specified as acute or chronic, J45.909 - Unspecified asthma, uncomplicated PFT pulmonary function test Today J45.40 - Moderate persistent asthma, uncomplicated Medications: New [id number]-[id number] 160-9-4.8 mcg/actuation (Breztri Aerosphere) 2 inhalations inhalation BID 30 days 10.7 grams 6RF levalbuterol HCl 1.25 mg (3 mL) inhalation BID 30 days PRN 180 mL 6RF shortness of breath or wheezing J44.9 - Chronic obstructive pulmonary disease, unspecified prednisone PO daily; Take 2 tabs daily x 5 days, then 1 tablet daily x 5 days 10 days 15 tabs 0RF Coding Level of Care Code New Pt Level 4 (69905) Diagnoses Severe persistent asthma without complication J45.50 Asthma severity: severe Asthma persistence: persistent Asthma complication type: uncomplicated Bronchitis J40 Chronic allergic rhinitis J30.9 Time Spent (min) 40
[2023-12-04 10:34] VITALS: BP 118/70; PULSE 60; O2SAT 99; BMI 31.4
== END 2023-12-04 11:09 | disposition home or self-care (01) ==
PROVIDERS: PCP Family Medicine; Visit Provider Hospitalist
DX: J45.50 Severe persistent asthma, uncomplicated (principal); J40 Bronchitis, not specified as acute or chronic; J30.9 Allergic rhinitis, unspecified
CPT/HCPCS: 99204

== ENCOUNTER → 2023-12-04 10:10 | Outpatient (BNVA) | payer OTHER, SELFPAY | PROVIDERS: PCP Family Medicine; Visit Provider Hospitalist ==

== ENCOUNTER 2023-12-04 12:34 | Outpatient (REF) | payer OTHER, SELFPAY ==
[2023-12-04 16:47] LABS: MANUAL DIFF FLAG NO
[2023-12-04 17:00] LABS: Basophils Absolute Auto 0.1 X10*3/uL (0.0-0.2); Basophils Percent Auto 0.6 % (0-2); Eosinophils Absolute Auto 0.4 X10*3/uL (0.0-0.4); Eosinophils Percent Auto 4.4 % (0-4); Hematocrit 40.5 % (37.0-47.0); Imm Gran Abs Auto 0.03 X10*3/uL (0.00-0.03); Imm Gran Pct Auto 0.4 % (0.0-0.4); Lymphocytes Absolute Auto 2.1 X10*3/uL (1.2-4.9); Lymphocytes Percent Auto 24.6 % (20-40); Mean Corpuscular HGB Conc 34.6 g/dl (31.0-35.0); Mean Corpuscular Hemoglobin 31.7 pg (27.0-33.0); Mean Corpuscular Volume 91.6 fL (80.0-98.0); Mean Platelet Volume 11.4 fL (9.4-12.3); Monocytes Absolute Auto 0.4 X10*3/uL (0.1-1.2); Monocytes Percent Auto 4.9 % (2-11); Neutrophils Absolute Auto 5.5 x10*3/uL (2.0-8.3); Neutrophils Percent Auto 65.1 % (45-73); Platelet Count 224 X10*3/uL (160-400); Red Blood Count 4.42 X10*6/uL (4.20-5.50); Red Cell Distribution Width 11.8 % (11.0-16.0); White Blood Count 8.4 X10*3/uL (4.8-10.8)
[2023-12-04 17:46] LABS: Erythrocyte Sedimentation Rate 5 MM/HR (0-20)
[2023-12-04 18:15] LABS: Anion Gap 14 (12-20); Blood Urea Nitrogen 13 mg/dL (9-16); Calcium 9.9 mg/dL (8.4-10.2); Carbon Dioxide 25 mmol/L (22-29); Chloride 105 mmol/L (96-108); Estimated Glomerular Filt Rate > 60; Glucose Random 173 mg/dL (60-115); Potassium 3.5 mmol/L (3.3-5.1); Sodium 140 mmol/L (135-145)
[2023-12-06 12:02] LABS: IgA 50 mg/dL (47-310); IgG 944 mg/dL (600-1640); IgM 141 mg/dL (50-300)
[2023-12-06 14:09] LABS: Immunoglobulin E 74 kU/L (<OR=114)
[2023-12-06 14:28] LABS: Immunoglobulin G Subclass 1 444 mg/dL (382-929); Immunoglobulin G Subclass 2 340 mg/dL (241-700); Immunoglobulin G Subclass 3 89 mg/dL (22-178); Immunoglobulin G Subclass 4 1.3 mg/dL (4-86); Immunoglobulin G Total 879 mg/dL (600-1640)
== END 2023-12-04 12:35 | disposition home or self-care (01) ==
LOC: HO.WFDLDS 12:34
PROVIDERS: Visit Provider Hospitalist
DX: J32.9 Chronic sinusitis, unspecified (principal); J40 Bronchitis, not specified as acute or chronic
CPT/HCPCS: 36415; 80048; 82784; 82785; 85025; 85652

== ENCOUNTER 2023-12-12 08:15 | Outpatient (AMB) | payer OTHER, SELFPAY ==
--- NOTE | 2023-12-12 08:30 | MHC.OFFWIV ---
Intake Vital Signs 12/12/23 08:39 Height 5 ft 4 in Weight 190 lb BMI 32.6 BP 102/70 Blood Pressure Location Lt brachial Position Sitting Respiration 16 Pulse 94 Pulse Source Pulse Oximeter Temp 98.5 F Temp Source Oral Pulse Oximetry (%) 97 Oxygen Delivery Method Room Air Intake Visit Reasons: est/ sinuses going to chest congestion Intake Note: Sinus and chest congestion. Sxs started on Sunday. Home covid test negative last night. Patient Tobacco Use Status: Former Tobacco user Is last menstrual period known: Yes Last menstrual period: 11/26/23 Allergies cefprozil [From CEFZIL] Allergy (Intermediate, Verified 12/12/23 08:35) UNKNOWN Cefzil Allergy (Unknown, Uncoded 12/12/23 08:35) unsure Medication List - Last Reconciled 12/12/23 by Shahla Lomeli PA-C albuterol sulfate 90 mcg/actuation (ProAir HFA) 2 puffs inhalation Q4-6H PRN 30 days [id number] 160-9-4.8 mcg/actuation (Breztri Aerosphere) 2 inhalations inhalation BID 30 days nebulizer accessories As directed nebulizers As directed prednisone PO daily; Take 2 tabs daily x 5 days, then 1 tablet daily x 5 days 10 days Do you need a note to return to daycare/school/sports/work: Yes (Has been out of work since Sunday) Return to daycare/school/sports/work/other note: work HPI est/ sinuses going to chest congestion HPI Details Patient is a 28-year-old female with a significant past medical history of asthma who presents today with complaints of sinusitis. Pt states she started feeling sick last week. She states her children started with cold sx and then it hit her. She states that she has body aches, sinus pain and pressure, ear fullness and a sore throat. She is coughing but infrequently. Believes it is related to her pnd. She denies any wheezing or shortness on breath. Currently asthma is well-controlled. She was covid and flu tested at [facility] at [facility]. She feels like she is getting worse. She is using tylenol, sudafed, and anithistamines. She is compliant with her maintenance inhaler. Did not denies meeting to use her rescue inhaler. 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 @ [employer] Current occupational exposures/hazards: No Sexual orientation: Straight/Heterosexual Gender identity: Female Cognitive needs: No Hearing needs: No Vision needs: No Female Reproductive History Menstrual Date of last menstrual period: 11/26/23 Physical Exam Vital Signs: Last Vital Signs Temp 98.5 F 12/12/23 08:39 Pulse 94 12/12/23 08:39 Resp 16 12/12/23 08:39 BP 102/70 12/12/23 08:39 Pulse Ox 97 12/12/23 08:39 Oxygen Delivery Method Room Air 12/12/23 08:39 BMI result Body Mass Index 32.6 Const Orientation/consciousness: patient oriented x3 HEENT Other: TMs dome-shaped a small air-fluid levels bilaterally. Negative tug test. Nasal mucosa erythematous and edematous. Purulent drainage noted. Maxillary sinus tenderness present. Ears: hearing grossly normal bilaterally Neck Thyroid: Thyroid normal Lymphatic: no lymphadenopathy noted Resp Auscultation: clear to auscultation bilaterally Cardio Rate: regular rate Rhythm: regular rhythm Heart sounds: S1 normal heart sound present and S2 normal heart sound present Skin General skin exam: no rashes or lesions noted Neuro General: patient oriented x3, gait normal and no focal motor deficits Assessment & Plan Assessment & Plan (1) Bacterial sinusitis: Code(s): J32.9 - Chronic sinusitis, unspecified; B96.89 - Other specified bacterial agents as the cause of diseases classified elsewhere Plan: We will start her on doxycycline. Discussed risks and benefits and adverse effects of this medication including GI upset and a photosensitivity rash. Continue with antihistamine. Use inhaler as directed by pulmonology. Follow up if anything worsens or changes. Patient understands and agrees with the plan. Medications: New doxycycline hyclate 100 mg PO BID 20 tabs 0RF Coding Level of Care Code Est Pt Level 3 (30246) Diagnoses Bacterial sinusitis J32.9; B96.89
[2023-12-12 08:39] VITALS: BP 102/70; PULSE 94; RESP 16; TEMP 36.9; O2SAT 97; BMI 32.6
== END 2023-12-12 10:28 | disposition home or self-care (01) ==
PROVIDERS: PCP Family Medicine; Visit Provider Physician Assistant
DX: J32.9 Chronic sinusitis, unspecified (principal); B96.89 Other specified bacterial agents as the cause of diseases classified elsewhere
CPT/HCPCS: 99213

== ENCOUNTER 2024-01-23 08:25 | Outpatient (AMB) | payer OTHER, SELFPAY ==
--- NOTE | 2024-01-23 08:26 | MHC.PC.OV ---
Vital Signs 01/23/24 08:33 Height 5 ft 4 in Weight 198 lb BMI 34.0 BP 98/68 Blood Pressure Location Rt brachial Position Sitting Respiration 14 Pulse 76 Pulse Source Pulse Oximeter Pulse Oximetry (%) 96 Oxygen Delivery Method Room Air Intake Visit Reasons: Jan 30 min CPE Intake Note: Physical. Follow on asthma Allergies cefprozil [From CEFZIL] Allergy (Intermediate, Verified 01/23/24 08:44) UNKNOWN Cefzil Allergy (Unknown, Uncoded 12/12/23 08:35) unsure Medication List - Last Reconciled 01/23/24 by Chely Ames, [facility]- albuterol sulfate 90 mcg/actuation 2 puffs inhalation Q4-6H PRN 30 days [id number] 160-9-4.8 mcg/actuation (Breztri Aerosphere) 2 inhalations inhalation BID 30 days montelukast (Singulair) 10 mg (2 x 5 mg) PO DAILY nebulizer accessories As directed nebulizers As directed Tobacco use date assessed: 10/15/23 Dental Screening Dental Screen Date: 07/27/23 HPI HPI Comments History of Present Illness Details 28 y/o F with asthma, chronic allergic rhinitis, low IgA, migraines, JAK, Vestibular dysfunction, sialadenitis, obesity s/p tonsillectomy Health Maintenance: Tdap 06/24/14 Pap 07/14/22 Flu 2023 @ work Specialists: [facility] ENT not routinely ff'd ObGyn next appt 04/2024 Optho Neuro no longer following Here today for CPE. Labs 10/26/23 WNL ENT consult 2-3 weeks ago. Consult note requested but n/a. Reports all of her sx resolved @ time of visit. Called during flare but told to take NSAIDS. Cont to have recurrent sinusitis, told to cont with Allergy shots. Has not startd yet, needs FMLA to do this. On Breztri, taking 1/2 dose as directed to prevent side effect. So far working well. Cont on JO 1-2x per day. Next f/u 02/2024. Was on FMLA for chronic conditions. Will need a renewal of this next Month. Migraines well controlled w/ prn meds only. Elavil in the past for prevention. EEG 2017 WNL. No longer ff'd by [facility] - overdue for eye exam, will schedule. Last exam 1 year ago. Wears glasses. JAK feels anxious all of the time, worse before menses, was on citalopram in the past to use prior to menses. This made her sx worse and she felt angrier. Was on Wellbutrin, Zoloft ...thinks took Buspar in the past .. but cannot recall ... trazadone to help sleep in the past..and other meds in the past w/o effect or they made her feel like a Zombie. Wonders if she has ADHD. Admits a lot of stimulation in her environment. Came off OCP as thought this deregulated her mood. Ok w/ taking meds to help. Skin - no changes Plan: Recommended to see if insurance [place] ENT coverage in [place]. If so, consider referral there. Please bring your FMLA papers for me to renew. Start pristiq 25 mg daily take in the AM... i want to see you back in about 6 weeks and we can see how this is or is not working. Discussed risk and benefit, side effcts. An ASRS V-1 was done today, there were some findings that could be related to ADHD, however i think there is a larger component of JAK which should be treated before considering ADHD. Talked to her about her environment and lifestyle and how meds will not change those stimulating factors. Encouraged to modify environment as much as possible. Health Maintenance Edu Cont all meds as directed and care w/ Specialists. This note is constructed using voice recognition software. While every effort has been made to ensure accuracy in tub rider, still errors may have been included Sometimes, these errors may affect the content or meaning of the given sentence . An additional 20 was spent addressing the problem(s) noted at todays visit. This includes time spent before the visit reviewing the chart, time spent during the visit, and time spent after the visit on documentation [facility] Medical History (Updated 01/23/24 @ 17:01 by INDIO Mireles-LORETTA) Pharyngitis Epigastric pain Lesion of skin of right ear Chronic allergic rhinitis Sinusitis Asthma Asthma exacerbation Otitis media Hx of migraines Surgical History (Updated 01/23/24 @ 17:01 by Chely L O'Evan, DEVELOPMENTAL BEHAVIORAL PHYSICIAN-BC) Status post tonsillectomy and adenoidectomy No pertinent past surgical history Family History Maternal Grandfather Bladder cancer Social History Household Members: Spouse and Children Housing: House 75 years or older and lives alone: No Alcohol intake: former Patient Tobacco Use Status: Former Tobacco user e-Cigarette/Vaping Use: Never Used service: No Current occupational status: employed Current occupation: [employer]unn[employer] @ [employer] Current occupational exposures/hazards: No Sexual orientation: Straight/Heterosexual Gender identity: Female Cognitive needs: No Hearing needs: No Vision needs: No Questionnaire PHQ-9 Over the last 2 weeks, how often have you been bothered by any of the following problems? 1. Little interest or pleasure in doing things: more than half the days 2. Feeling down, depressed, or hopeless: not at all 3. Trouble falling or staying asleep, or sleeping too much: more than half the days 4. Feeling tired or having little energy: nearly every day 5. Poor appetite or overeating: not at all 6. Feeling bad about yourself - or that you are a failure or have let yourself or your family down: not at all 7. Trouble concentrating on things, such as reading the newspaper or watching television: more than half the days 8. Moving or speaking so slowly that other people could have noticed. Or the opposite - being so fidgety or restless that you have been moving around a lot more than usual: not at all 9. Thoughts that you would be better off or of hurting yourself in some way: not at all Total score: 9 Depression Screening Interpretation: Positive (denies depression, endorses more JAK ) Depression Screening Follow-up: Other Depression Screening Done: Yes 55772 - PHQ-9 Billing: Yes Source: Developed by Drs. Rob Richardson, Mercedez Keene, Cisco Sumner and colleagues, with an educational chela from [employer]. Thrive Questionnaire Date Thrive assessed: 01/23/24 I am a: Patient What is your living situation today?: I have a steady place to live Within the past 12 months, did the food you bought not last and you didn't have the money to get more?: Never true Within the past 12 months, did you worry whether your food would run out before you got money to buy more?: Never true Do you have trouble paying for medicines?: No Do you have trouble getting transportation to medical appointments?: No Do you have trouble paying your heating and electricity bill?: No Do you have trouble taking care of your child, family member or friend?: No Do you have trouble with day-to-day activities such as bathing, preparing meals, shopping, managing finances, etc.?: No Are you currently unemployed and looking for a job?: No Are you interested in more education?: No Please select the resources that you would like help with: None Currently or been in a relationship where the following occur: No concerns reported THRIVE Score: 0 AUDIT C Alcohol Use Questionnaire (AUDIT-C) 1. How often do you have a drink containing alcohol?: Never 3. How often do you have six or more drinks on one occasion?: Never Total Score: 0 Score Reviewed/Action Taken: Yes JAK-7 AMB Questionnaire JAK-7 Date JAK - 7 assessed: 01/23/24 Feeling nervous, anxious, or on edge: 3 = Nearly every day Not being able to stop or control worryin = More than half the days Worrying too much about different things: 3 = Nearly every day Trouble relaxin = Nearly every day Being so restless that it is hard to sit still: 1 = Several days Becoming easily annoyed or irritable: 3 = Nearly every day Feeling afraid as if something awful might happen: 1 = Several days Total JAK-7 score (0-4 normal; 5-9 mild; 10-14 moderate; 15-21 severe): 16 Source: Developed by Drs. Rob Richardson, Mercedez Keene, Cisco Sumner and colleagues, with an educational chela from [employer]. JAK-7 Assessment Billing JAK-7 Assessment Tool: JAK-7 Assessment 00985 ACT Questionnaire In the past 4 weeks, how much of the time did your asthma keep you from getting as much done at work, school or at home?: Some of the time During the past 4 weeks, how often have you had shortness of breath?: 1-2 times a week During the past 4 weeks, how often did your asthma symptoms wake you up at night or earlier than usual in the morning?: Not at all During the past 4 weeks, how often have you had to use your rescue inhaler or nebulizer medication?: 2-3 times a week (Almost every day) How would you rate your asthma control during the past 4 weeks?: Somewhat controlled ACT Interpretation: Positive ACT Branch: Follow up visit scheduled Score: 18 Review of Systems Const Details: Constitutional: Denies fever. Skin: Denies rash. Eye: Denies eye pain. Gastrointestinal: Denies nausea, vomiting or abdominal pain. Cardiovascular: Denies chest pain and syncope. Genitourinary: Denies dysuria. Musculoskeletal: Denies back pain and extremity pain. Neurologic: Denies headaches, confusion, and weakness. Psychiatric: Denies suicidal thoughts and substance abuse. Physical exam (Primary Care) Vital Signs: Last Vital Signs Pulse 76 01/23/24 08:33 Resp 14 01/23/24 08:33 BP 98/68 01/23/24 08:33 Pulse Ox 96 01/23/24 08:33 Oxygen Delivery Method Room Air 01/23/24 08:33 BMI result Body Mass Index 34.0 BMI Assessment/Plan discussion: High BMI High, discussed plan: lifestyle Tobacco/Smoking Status: Tobacco use Status Tobacco use date assessed 10/15/23 01/23/24 08:28 Patient Tobacco Use Status Former Tobacco user 01/23/24 08:28 e-Cigarette/Vaping Use Never Used 01/23/24 08:28 PHQ-9: PHQ-9 Score PHQ-9: Total score 9 01/23/24 13:25 Depression Screening Interpretation: Positive (denies depression, endorses more JAK ) Depression Screening Follow-up: Other Thrive Assessment: Date of Thrive Assessment Date Thrive assessed 01/23/24 01/23/24 08:40 Currently or been in a relationship where the following occur: No concerns reported Const Other: General: Well developed, well nourished, in no acute distress. Appears stated age. Head: Normocephalic, atraumatic. Eyes: Pupils are equal, round and reactive to light and accommodation. Conjunctivae are clear. Vision grossly normal. Ears: TMs intact w/ chronic changes, nonobs cerumen EAC L Nose: clear drainage, chronic Mouth: There are no ulcers or lesions noted. No inflammation, + post nasal drip, no plaques nor exudates. Neck: Supple, no adenopathy or thyromegaly. Lungs: Clear to auscultation bilaterally. No rales, rhonchi or wheeze noted. Good air flow in all mo. Heart: Regular rate and rhythm. No murmurs, click, rubs or gallops are noted. Abdomen: Bowel sounds present in all quadrants. The abdomen is soft, nontender, with no masses or organomegaly noted. No hernias are noted. Musculoskeletal: Joints are nontender, without swelling, redness, or effusions. Range of motion is observed to be normal. Pulses: Peripheral pulses are equal and palpable bilaterally. Extremities: No clubbing, cyanosis nor edema is noted. Neurologic: Gait and station normal. Cranial Nerves 2-12 intact. Motor strength grossly symmetrical and intact. No sensory loss. Balance normal. Skin: No rashes, ulcers, or lesions noted. Turgor is good. Skin color is good. Hair and nails are without abnormalities. Psych: Normal eye contact, affect and mood appropriate, and normal interactions. Patient is alert and appropriate to context. Assessment and Plan Assessment & Plan (1) Encounter for general adult medical examination with abnormal findings: Code(s): Z00.01 - Encounter for general adult medical examination with abnormal findings (2) JAK (generalized anxiety disorder): Code(s): F41.1 - Generalized anxiety disorder (3) Chronic allergic rhinitis: Code(s): J30.9 - Allergic rhinitis, unspecified (4) Sialadenitis: Code(s): K11.20 - Sialoadenitis, unspecified (5) Asthma: Comment: Allergic asthma with elevated Eos Code(s): J45.909 - Unspecified asthma, uncomplicated Qualifiers: Asthma severity: severe Asthma persistence: persistent Asthma complication type: uncomplicated Qualified Code(s): J45.50 - Severe persistent asthma, uncomplicated (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 Code(s): D80.2 - Selective deficiency of immunoglobulin A [IgA] (7) Difficulty concentrating: Code(s): R41.840 - Attention and concentration deficit Medications: New desvenlafaxine succinate ER (Pristiq) 25 mg PO DAILY 30 tabs 1RF Changed From montelukast (Singulair) 10 mg (2 x 5 mg) PO DAILY 60 tabs 1RF To montelukast (Singulair) 5 mg PO DAILY 90 tabs 1RF Patient Instructions: Health screenings for women You should visit your health care provider from time to time, even if you are healthy. The purpose of these visits is to: Screen for medical issues Assess your risk for future medical problems Encourage a healthy lifestyle Update vaccinations and other preventive care services Help you get to know your provider in case of an illness Information Even if you feel fine, you should still see your provider for regular checkups. These visits can help you avoid problems in the future. For example, the only way to find out if you have high blood pressure is to have it checked regularly. High blood sugar and high cholesterol levels also may not have any symptoms in the early stages. A simple blood test can check for these conditions. There are specific times when you should see your provider or receive specific health screenings. The [place] Preventive Services Task Force publishes a list of recommended screenings. Below are screening guidelines for women ages 18 to 39. BLOOD PRESSURE SCREENING Your blood pressure should be checked at least once every 3 to 5 years if: Your blood pressure is in the normal range (top number less than 120 mm Hg and bottom number less than 80 mm Hg) You don't have risk factors for high blood pressure Ask your provider if you need your blood pressure checked more often if: The top number is 120 to 129 mm Hg or the bottom number is 70 to 79 mm Hg You have diabetes, heart disease, kidney problems, are overweight, or have certain other health conditions You have a first-degree relative with high blood pressure You are Black You had high blood pressure during a If the top number is 130 mm Hg or greater or the bottom number is 80 mm Hg or greater, this is considered stage 1 hypertension. Schedule an appointment with your provider to learn how you can reduce your blood pressure. Watch for blood pressure screenings in your area. Ask your provider if you can stop in to have your blood pressure checked. BREAST CANCER SCREENING Experts do not agree about the benefits of breast self-exams in finding breast cancer or saving lives. Talk to your provider about what is best for you. A screening mammogram is not recommended for most women under age 40. Your provider may discuss and recommend mammograms, MRI scans, or ultrasounds if you have an increased risk for breast cancer, such as: A mother or sister who had breast cancer at a young age (most often starting screening earlier than the age the close relative was diagnosed) You carry a high-risk genetic marker CERVICAL CANCER SCREENING Cervical cancer screening should start at age 21 years unless your provider advises otherwise. After the first test: Women ages 21 through 29 should have a Pap test every 3 years. Exoprts do not agree on whether HPV testing is recommended for this age group. Women ages 30 through 65 should be screened with either a Pap test every 3 years or the HPV test every 5 years or both tests every 5 years (called cotesting ). Women who have been treated for precancer (cervical dysplasia) should continue to have Pap tests for 20 years after treatment or until age 65, whichever is longer. If you have had your uterus and cervix removed (total hysterectomy), and you have not been diagnosed with cervical cancer or precancer (high grade cervical neoplasia), you do not need cervical cancer screening. CHOLESTEROL SCREENING Cholesterol screening should begin at: Age 45 for women with no known risk factors for coronary heart disease Age 20 for women with known risk factors for coronary heart disease Repeat cholesterol screening should take place: Every 5 years for women with normal cholesterol levels More often if changes occur in lifestyle (including weight gain and diet) More often if you have diabetes, heart disease, kidney problems, or certain other conditions DIABETES SCREENING You should be screened for diabetes starting at age 35 and then repeated every 3 years if you have no risk factors for diabetes. Screening may need to start earlier and be repeated more often if you have other risk factors for diabetes, such as: You have a first degree relative with diabetes. You are overweight or have obesity. You have high blood pressure, prediabetes, or a history of heart disease. Screening for diabetes should be done if you are planning to become and you are overweight and have other risk factors such as high blood pressure. DENTAL EXAM Go to the dentist once or twice every year for an exam and cleaning. Your dentist will evaluate if you need more frequent visits. EYE EXAM Have an eye exam every 5 to 10 years before age 40. If you have vision problems, have an eye exam every 2 years or more often if recommended by your provider. You should have an eye exam that includes an examination of your retina (back of your eye) at least every year if you have diabetes. IMMUNIZATIONS Commonly needed vaccines include: Flu shot: get one every year. COVID-19 vaccine: ask your provider what is best for you. Tetanus-diphtheria and acellular pertussis (Tdap) vaccine: have one at or after age 19 as one of your tetanus-diphtheria vaccines if you did not receive it as an adolescent. Tetanus-diphtheria: have a booster (or Tdap) every 10 years. Varicella vaccine: receive 2 doses if you never had chickenpox or the varicella vaccine. Hepatitis B vaccine: receive 2, 3, or 4 doses, depending on your exact circumstances. Measles, mumps, and rubella (MMR) vaccine: receive 1 to 2 doses if you are not already immune to MMR. Your provider can tell you if you are immune. Ask your provider about the human papillomavirus (HPV) vaccine if: You have not received the HPV vaccine in the past You have not completed the full vaccine series (you should catch up on this shot) Ask your provider if you should receive other immunizations if you have certain health problems that increase your risk for some diseases such as pneumonia. INFECTIOUS DISEASE SCREENING Women who are sexually active should be screened for chlamydia and gonorrhea up until age 25. Women 25 years and older should be screened for chlamydia and gonorrhea if at high risk. Screening for hepatitis C: All adults ages 18 to 79 should get a one-time test for hepatitis C. people should be screened at every . Screening for human immunodeficiency virus (HIV): All people ages 15 to 65 should get a one-time test for HIV. Depending on your lifestyle and medical history, you may also need to be screened for infections such as syphilis and HIV, as well as other infections. PHYSICAL EXAM All adults should visit their provider from time to time, even if they are healthy. The purpose of these visits is to: Screen for disease Assess your risk of future medical problems Encourage a healthy lifestyle Update your vaccinations and other preventive care services Maintain a relationship with a provider in case of an illness Your height, weight, and BMI should be checked at every exam. During your exam, your provider may ask you about: Depression and anxiety Diet and exercise Alcohol and tobacco use Safety issues, such as using seat belts, smoke detectors, and intimate partner violence Your medicines and risk for interactions SKIN SELF-EXAM Your provider may check your skin for signs of skin cancer, especially if you're at high risk, such as if you: Have had skin cancer before Have close relatives with skin cancer Have a weakened immune system OTHER SCREENING Talk with your provider about colon cancer screening if you have a strong family history of colon cancer or polyps, or if you have had inflammatory bowel disease or polyps yourself. Routine bone density screening of women under 40 is not recommended. 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
[2024-01-23 08:33] VITALS: BP 98/68; PULSE 76; RESP 14; O2SAT 96; BMI 34.0
== END 2024-01-23 09:16 | disposition home or self-care (01) ==
PROVIDERS: PCP Family Medicine; Visit Provider Nurse Practitioner Family
DX: Z00.00 Encounter for general adult medical examination without abnormal findings (principal); J45.50 Severe persistent asthma, uncomplicated; D80.2 Selective deficiency of immunoglobulin A [IgA]; F41.1 Generalized anxiety disorder; J30.9 Allergic rhinitis, unspecified; K11.20 Sialoadenitis, unspecified; R41.840 Attention and concentration deficit

== ENCOUNTER → 2024-01-23 08:25 | Outpatient (BNVA) | payer OTHER, SELFPAY | PROVIDERS: PCP Family Medicine; Visit Provider Nurse Practitioner Family | DX: Z00.01 Encounter for general adult medical examination with abnormal findings (principal); F41.1 Generalized anxiety disorder; J30.9 Allergic rhinitis, unspecified; K11.20 Sialoadenitis, unspecified; J45.50 Severe persistent asthma, uncomplicated; D80.2 Selective deficiency of immunoglobulin A [IgA]; R41.840 Attention and concentration deficit | CPT/HCPCS: 96127; 96160 ==

== ENCOUNTER 2024-02-15 08:14 | Outpatient (AMB) | payer OTHER, SELFPAY ==
--- NOTE | 2024-02-15 08:17 | MHC.PC.OV ---
Vital Signs 02/15/24 08:21 02/15/24 08:42 Height 5 ft 4 in Weight 196 lb 4 oz BMI 33.7 BP 118/70 Blood Pressure Location Rt brachial Position Sitting Respiration 14 Pulse 105 H 80 Pulse Source Pulse Oximeter Pulse Oximeter Pulse Oximetry (%) 99 Oxygen Delivery Method Room Air Intake Visit Reasons: 4-6 weeks 30 min fu new med start FMLA Intake Note: follow up on med with fmla paperwork Allergies cefprozil [From CEFZIL] Allergy (Intermediate, Verified 02/15/24 08:30) UNKNOWN Cefzil Allergy (Unknown, Uncoded 12/12/23 08:35) unsure Medication List - Last Reconciled 02/15/24 by Chely Ames, [facility]- albuterol sulfate 90 mcg/actuation 2 puffs inhalation Q4-6H PRN 30 days vomxcdtpbu-ueybjuhn-cedsnnjvog 160-9-4.8 mcg/actuation (Breztri Aerosphere) 2 inhalations inhalation BID 30 days desvenlafaxine succinate ER (Pristiq) 25 mg PO DAILY montelukast (Singulair) 5 mg PO DAILY nebulizer accessories As directed nebulizers As directed Tobacco use date assessed: 10/15/23 Dental Screening Dental Screen Date: 07/27/23 HPI HPI Comments History of Present Illness Details 28 y/o F with asthma, chronic allergic rhinitis, low IgA, migraines, JAK, Vestibular dysfunction, sialadenitis, obesity s/p tonsillectomy Health Maintenance: Tdap 06/24/14 Pap 07/14/22 Flu 2023 @ work Specialists: Pulm, PFT scheduled 03/06/24 Allergy & Immune allergy shots ENT not routinely ff'd ObGyn next appt 04/2024 Optho Neuro no longer followin Here today to f/u on mood, recert FMLA and has new c/o of feeling ill. Mood -She started pristiq 25 mg daily take in the AM. Has helped significantly with all of her sx. has also noted improvement. Would like to continue. Also feeling sick, started about 1 week ago. Sinus congestion. Bump behind L ear. L ear is popping. Breathing is ok. Using JO PRN more often. Cont to maintenance inhaler. She is now taking the full dose. And is tolerating it. Using sudafed and no improvement. Has not started allergy shots yet. Will be. FMLA currently has active intermittent for chronic conditions, expires 02/16/2024. Needs renewal which is medically necessary. However will be restarting allergy shots so needs appt times increased; will have 2 appts/week lasting 2 hours added. New exp. will be 1 year 02/14/2025. 7 episodes/mo lasting 3days/episode. Exam: Awake alert NAD EAC with cerumen L unable to see TM, TM intact with air bubbles noted, palpable postauricular adenopathy on the L, nontender Sinus congestion, frontal and maxillary sinus tenderness bilat, L turbinates edematous Pharynx WNL RRR LS CTAB + phalens R wrist Mood and affect appropriate Plan: Continue pristiq as its working well. Refer to [facility] for R CTS sx Pred and Doxy for acute sinusitis. Cont inhaled meds as prescribed and fu with Pulm Flu shot when feeling better FMLA completed & returned to patient later in the day once completed. this took extra time to print from the portal, forms not avail at time of visit, pt came in late; forms processed after the visit. RTO 4 months routine fu JAK, sooner PRN This note is constructed using voice recognition software. While every effort has been made to ensure accuracy in piper helper, still errors may have been included Sometimes, these errors may affect the content or meaning of the given sentence . Total time spent caring for the patient today was 70 minutes. This includes time spent before the visit reviewing the chart, time spent during the visit, and time spent after the visit on documentation [facility] Medical History (Updated 02/15/24 @ 15:55 by Chely Ames, SECURITY ATTENDANT-) Pharyngitis Epigastric pain Lesion of skin of right ear Chronic allergic rhinitis Sinusitis Asthma Asthma exacerbation Otitis media Hx of migraines Surgical History (Updated 01/23/24 @ 17:01 by Chely Ames, [place]) Status post tonsillectomy and adenoidectomy No pertinent past surgical history Family History Maternal Grandfather Bladder cancer Social History Household Members: Spouse and Children Housing: House 75 years or older and lives alone: No Alcohol intake: former Patient Tobacco Use Status: Former Tobacco user e-Cigarette/Vaping Use: Never Used service: No Current occupational status: employed 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 Rob Richardson, Mercedez Keene, Cisco Sumner and colleagues, with an educational chela from [employer]. Physical exam (Primary Care) Vital Signs: Last Vital Signs Pulse 80 02/15/24 08:42 Resp 14 02/15/24 08:21 BP 118/70 02/15/24 08:21 Pulse Ox 99 02/15/24 08:21 Oxygen Delivery Method Room Air 02/15/24 08:21 BMI result Body Mass Index 33.7 Tobacco/Smoking Status: Tobacco use Status Tobacco use date assessed 10/15/23 02/15/24 08:18 Patient Tobacco Use Status Former Tobacco user 02/15/24 08:18 e-Cigarette/Vaping Use Never Used 02/15/24 08:18 Thrive Assessment: Date of Thrive Assessment Date Thrive assessed 01/23/24 02/15/24 08:18 Coding Level of Care Code Est Pt Level 5 (70100) Complex EM visit Add On G2211 Diagnoses JAK (generalized anxiety disorder) F41.1 Poorly controlled persistent asthma J45.998 Carpal tunnel syndrome, right G56.01 Acute bacterial sinusitis J01.90; B96.89 Encounters for administrative purpose Z02.9 CPT Codes PROLONG OUTPT/OFFICE VIS - G2212 Assessment & Plan Assessment & Plan (1) JAK (generalized anxiety disorder): Code(s): F41.1 - Generalized anxiety disorder Category: Medical Plan: . (2) Poorly controlled persistent asthma: Comment: managed by Pulm Could not tolerate increase of Singulair as this caused diarrhea. Resume 5 mg daily, cont Flonase 2 sprays each nostril once per day. . Code(s): J45.998 - Other asthma Category: Medical Plan: . (3) Carpal tunnel syndrome, right: Code(s): G56.01 - Carpal tunnel syndrome, right upper limb Category: Medical Plan: . (4) Acute bacterial sinusitis: Code(s): J01.90 - Acute sinusitis, unspecified; B96.89 - Other specified bacterial agents as the cause of diseases classified elsewhere Plan: . (5) Encounters for administrative purpose: Code(s): Z02.9 - Encounter for administrative examinations, unspecified Plan: . Orders: Referrals Orthopedics Referral G56.01 - Carpal tunnel syndrome, right upper limb Medications: New prednisone 20 mg PO DAILY 5 tabs 0RF doxycycline hyclate 100 mg PO BID 14 caps 0RF 7 days Refilled desvenlafaxine succinate ER (Pristiq) 25 mg PO DAILY 90 tabs 1RF
[2024-02-15 08:21] VITALS: BP 118/70; PULSE 105; RESP 14; O2SAT 99; BMI 33.7
[2024-02-15 08:42] VITALS: PULSE 80
== END 2024-02-15 08:49 | disposition home or self-care (01) ==
PROVIDERS: PCP Family Medicine; Visit Provider Nurse Practitioner Family
DX: J45.998 Other asthma (principal); F41.1 Generalized anxiety disorder; G56.01 Carpal tunnel syndrome, right upper limb; J01.90 Acute sinusitis, unspecified; B96.89 Other specified bacterial agents as the cause of diseases classified elsewhere; Z02.9 Encounter for administrative examinations, unspecified

== ENCOUNTER → 2024-02-15 08:14 | Outpatient (BNVA) | payer OTHER, SELFPAY | PROVIDERS: PCP Family Medicine; Visit Provider Nurse Practitioner Family ==

== ENCOUNTER 2024-06-18 08:23 | Outpatient (AMB) | payer OTHER, SELFPAY ==
--- NOTE | 2024-06-18 08:30 | A.OFFPC_ITS ---
Vital Signs 06/18/24 08:38 Height 5 ft 4 in Weight 198 lb BMI 34.0 BP 103/66 Blood Pressure Location Rt brachial Position Sitting Respiration 16 Pulse 79 Pulse Source Pulse Oximeter Temp 98.1 F Temp Source Oral Pulse Oximetry (%) 97 Oxygen Delivery Method Room Air Intake Visit Reasons: 4 months 30 min routine fu Intake Note: patient here for 4 month follow up Promos Executive Producer Required: No Is last menstrual period known: Yes Last menstrual period: 06/04/24 Post menopausal: No Patient : No Allergies cefprozil [From CEFZIL] Allergy (Intermediate, Verified 06/18/24 08:34) UNKNOWN Cefzil Allergy (Unknown, Uncoded 12/12/23 08:35) unsure Medication List - Last Reconciled 06/18/24 by Chely Ames, [facility]- albuterol sulfate 90 mcg/actuation 2 puffs inhalation Q4-6H PRN 30 days yuengjqzmd-tabwjnge-xeabbmhkiu 160-9-4.8 mcg/actuation (Breztri Aerosphere) 2 inhalations inhalation BID 30 days desvenlafaxine succinate ER (Pristiq) 25 mg PO DAILY montelukast (Singulair) 5 mg PO DAILY nebulizer accessories As directed nebulizers As directed ondansetron HCl 4 mg PO Q8H PRN 3 days Tobacco use date assessed: 06/18/24 Dental Screening Dental Screen Date: 06/18/24 Did you have a dental visit in the last 12 months?: Yes Did you have a dental problem in the last 6 months where you did not have access to dental care?: No Was dental information given to patient?: Patient has dentist HPI HPI Comments History of Present Illness Details 28 y/o F with asthma, chronic allergic r hinitis, low IgA, migraines, JAK, Vestibular dysfunction, sialadenitis, obesity s/p tonsillectomy, R wrist ganglion cyst removal 05/2024 Health Maintenance: Tdap 06/24/14 Pap 07/14/22 Flu 2023 @ work Specialists: Pulm overdue for appt, 02/2024. Needs to have PFT done Allergy & Immune - not active ENT not routinely ff'd ObGyn missed appt 04/2024 Optho Neuro no longer following The patient is a 28-year-old female presenting with a routine follow-up of chronic conditions. The patient has a history of asthma for which she is active with pulmonology management. Current medications include albuterol, Breztri, and Singulair. Recently, she noted an exacerbation of her asthma symptoms but has continued with her current treatment regimen. The patient has generalized anxiety disorder, previously well-managed with Pristiq. She discontinued the medication, leading to a resurgence in anxiety symptoms, notably severe headaches and heightened anxiety levels, reported as feeling like an elephant sitting on her chest. She thus decided to restart the medication. In addition to these chronic conditions, the patient reported new symptoms of persistent nausea upon awakening, which improves slightly postprandially. However, eating too much results in fatigue and the need to rest. This sensation of nausea commenced approximately two weeks prior to the visit and significantly impacted her daily routine, including exercise. There is a history of gestational diabetes, though it is noted that her A1c was previously normal. She expressed concern that her recent symptoms could be related to elevated blood sugars as she remembers having failed glucose tolerance tests in previous . The patient also has a diagnosis of rosacea with occasional flare-ups, notably surrounding meals where flushing occurs alongside other symptoms. She recently underwent surgery for a ganglion cyst on her wrist, described as deeply rooted into the bone. Social History - Family: ; has children. 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 - Lifestyle: Occupied with family respon sibilities and activities. Physical Exam Awake alert NAD EAC with cerumen bilat, mild erythema of R TM that i am able to see, mild congestion on L Sinus congestion turbinates pale edematous Pharynx + PND RRR LS CTAB Mood and affect appropriate R wrist in brace, well healing surgical incision STEPHANIE Results - Labs: Random glucose level previously measured at 173 mg/dL 11/2023 - Previous A1c noted to be within normal range. 10/2023 Discussion Notes During this visit, I emphasized the importance of continuing with the Pristiq for managing her anxiety disorder, especially given her previous positive response to the medication. We addressed the potential initial side effects, including headaches that could occur upon reinitiation. The patient agreed to resume Pristiq and was provided a refill. Given her history and recent symptoms of nausea, we discussed the possibility of assessing her glucose tolerance status to rule out or confirm diabetes or glucose intolerance as a contributing factor. I proposed a plan to order a glucose tolerance test and consider an endocrinology referral based on the results. I affirmed the necessity of follow-up appointments with other specialists, particularly the spring upholsterer and OB-CIRCULATION LIBRARIAN, and encouraged consistency in these follow-ups for ongoing management of her chronic conditions. Assessment and Plan 1. Nausea Zofran provided as needed for nausea. Encouraged hydration and monitoring of symptoms. 2. Rosacea Monitor for flares; no new treatment at this time initiated. 3. Generalized Anxiety Disorder Patient will restart Pristiq with provided refills. Discussed potential transient side effects of headaches. Follow-up to assess the efficacy and symptomatic relief in 6-8 weeks. 4. History Of Gestational Diabetes Plan to conduct a two-hour glucose tolerance test to evaluate current glucose regulation. Consider endocrinology referral based on test outcomes. 5. Asthma Continue current management with Breztri, Singulair, and as-needed albuterol. No change in regimen as symptoms are controlled per patient's report during this encounter. RTO 6-8 WEEKS FU ON PRISTIQ START Patient was informed and verbally consented to the use of an ambient scribe for clinic note documentation during this visit. Total time spent caring for the patient today was 40 minutes. This includes time spent before the visit reviewing the chart, time spent during the visit, and time spent after the visit on documentation, reviewing laboratory results, diagnostic imaging, medications, performing a medically necessary evaluation, counseling on diagnoses, care coordination, ordering appropriate tests, ordering appropriate medications, review of tests performed by other providers, reporting test results with the patient, communication with other healthcare providers. [facility] Medical History (Updated 06/18/24 @ 15:52 by INDIO Mireles-LORETTA) Asthma Asthma exacerbation Chronic allergic rhinitis Epigastric pain Hx of migraines Lesion of skin of right ear Otitis media Pharyngitis Sinusitis Surgical History (Updated 01/23/24 @ 17:01 by INDIO Mireles-LORETTA) No pertinent past surgical history Status post tonsillectomy and adenoidectomy Family History Maternal Grandfather Bladder cancer Social History Household Members: Spouse and Children Housing: House 75 years or older and lives alone: No Alcohol intake: former Patient Tobacco Use Status: Former Tobacco user e-Cigarette/Vaping Use: Never Used service: No Current occupational status: employed Current occupation: [email or web address] @ [employer] Current occupational exposures/hazards: No Sexual orientation: Straight/Heterosexual Gender identity: Female Cognitive needs: No Hearing needs: No Vision needs: No Female Reproductive History Menstrual Date of last menstrual period: 06/04/24 Questionnaire PHQ-9 Over the last 2 weeks, how often have you been bothered by any of the following problems? 1. Little interest or pleasure in doing things: several days 2. Feeling down, depressed, or hopeless: not at all 3. Trouble falling or staying asleep, or sleeping too much: several days 4. Feeling tired or having little energy: several days 5. Poor appetite or overeating: several days 6. Feeling bad about yourself - or that you are a failure or have let yourself or your family down: not at all 7. Trouble concentrating on things, such as reading the newspaper or watching television: several days 8. Moving or speaking so slowly that other people could have noticed. Or the opposite - being so fidgety or restless that you have been moving around a lot more than usual: not at all 9. Thoughts that you would be better off or of hurting yourself in some way: not at all Total score: 5 Depression Screening Interpretation: Positive Depression Screening Follow-up: Existing condition Depression Screening Done: Yes 33365 - PHQ-9 Billing: Yes Source: Developed by Drs. Rob Richardson, Mercedez Keene, Cisco Sumner and colleagues, with an educational chela from [email or web address]. Thrive Questionnaire Date Thrive assessed: 06/18/24 I am a: Patient What is your living situation today?: I have a steady place to live Within the past 12 months, did the food you bought not last and you didn't have the money to get more?: Never true Within the past 12 months, did you worry whether your food would run out before you got money to buy more?: Never true Do you have trouble paying for medicines?: No Do you have trouble getting transportation to medical appointments?: No Do you have trouble paying your heating and electricity bill?: No Do you have trouble taking care of your child, family member or friend?: No Do you have trouble with day-to-day activities such as bathing, preparing meals, shopping, managing finances, etc.?: No Are you currently unemployed and looking for a job?: No Are you interested in more education?: No Please select the resources that you would like help with: None Currently or been in a relationship where the following occur: No concerns reported THRIVE Score: 0 AUDIT C Alcohol Use Questionnaire (AUDIT-C) 1. How often do you have a drink containing alcohol?: Never 3. How often do you have six or more drinks on one occasion?: Never Total Score: 0 Score Reviewed/Action Taken: Yes JAK-7 AMB Questionnaire JAK-7 Date JAK - 7 assessed: 06/18/24 Feeling nervous, anxious, or on edge: 1 = Several days Not being able to stop or control worryin = Several days Worrying too much about different things: 1 = Several days Trouble relaxin = Several days Being so restless that it is hard to sit still: 2 = More than half the days Becoming easily annoyed or irritable: 2 = More than half the days Feeling afraid as if something awful might happen: 2 = More than half the days Total JAK-7 score (0-4 normal; 5-9 mild; 10-14 moderate; 15-21 severe): 10 Source: Developed by Drs. Rob Richardson, Mercedez Keene, Cisco Sumner and colleagues, with an educational chela from [employer]. JAK-7 Assessment Billing JAK-7 Assessment Tool: JAK-7 Assessment 14555 ACT Questionnaire In the past 4 weeks, how much of the time did your asthma keep you from getting as much done at work, school or at home?: A little of the time During the past 4 weeks, how often have you had shortness of breath?: 3-6 times a week During the past 4 weeks, how often did your asthma symptoms wake you up at night or earlier than usual in the morning?: Once a week During the past 4 weeks, how often have you had to use your rescue inhaler or nebulizer medication?: More than 3 times per day (2 times a day) How would you rate your asthma control during the past 4 weeks?: Somewhat controlled Score: 14 Physical exam (Primary Care) Vital Signs: Last Vital Signs Temp 98.1 F 06/18/24 08:38 Pulse 79 06/18/24 08:38 Resp 16 06/18/24 08:38 BP 103/66 06/18/24 08:38 Pulse Ox 97 06/18/24 08:38 Oxygen Delivery Method Room Air 06/18/24 08:38 BMI result Body Mass Index 34.0 BMI Assessment/Plan discussion: High BMI High, discussed plan: lifestyle Tobacco/Smoking Status: Tobacco use Status Tobacco use date assessed 06/18/24 06/18/24 08:41 Patient Tobacco Use Status Former Tobacco user 06/18/24 08:30 e-Cigarette/Vaping Use Never Used 06/18/24 08:30 PHQ-9: PHQ-9 Score PHQ-9: Total score 5 06/18/24 09:00 Depression Screening Interpretation: Positive Depression Screening Follow-up: Existing condition Thrive Assessment: Date of Thrive Assessment Date Thrive assessed 06/18/24 06/18/24 08:41 Currently or been in a relationship where the following occur: No concerns reported Coding Level of Care Code Est Pt Level 5 (15536) Complex EM visit Add On G2211 Diagnoses JAK (generalized anxiety disorder) F41.1 Poorly controlled persistent asthma J45.998 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 Elevated random blood glucose level R73.9 History of gestational diabetes Z86.32 Family history of diabetes mellitus Z83.3 BMI 34.0-34.9,adult Z68.34 Obesity, Class I, BMI 30.0-34.9 (see actual BMI) E66.811 Chronic allergic rhinitis J30.9 Nausea without vomiting R11.0 Additional Codes JAK-7 Assessment Billing - JAK-7 Assessment Tool: JAK-7 Assessment 57796 ([id number]) PHQ-9 - 15412 - PHQ-9 Billing: Yes ([id number]) Assessment & Plan Assessment & Plan (1) JAK (generalized anxiety disorder): Code(s): F41.1 - Generalized anxiety disorder Category: Medical (2) Poorly controlled persistent asthma: Comment: managed by Pulm Could not tolerate increase of Singulair as this caused diarrhea. Resume 5 mg daily, cont Flonase 2 sprays each nostril once per day. 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 Code(s): D80.2 - Selective deficiency of immunoglobulin A [IgA] Category: Medical (4) Elevated random blood glucose level: Code(s): R73.9 - Hyperglycemia, unspecified Category: Medical (5) History of gestational diabetes: Code(s): Z86.32 - Personal history of gestational diabetes Category: Medical (6) Family history of diabetes mellitus: Code(s): Z83.3 - Family history of diabetes mellitus Category: Medical (7) BMI 34.0-34.9,adult: Code(s): Z68.34 - Body mass index [BMI] 34.0-34.9, adult Category: Medical (8) Obesity, Class I, BMI 30.0-34.9 (see actual BMI): Code(s): E66.811 - Obesity, class 1 Category: Medical (9) Chronic allergic rhinitis: Code(s): J30.9 - Allergic rhinitis, unspecified Category: Medical (10) Nausea without vomiting: Code(s): R11.0 - Nausea Category: Medical Plan . Orders: Orders Glucose Tolerance 2 Hour Today R73.9 - Hyperglycemia, unspecified, Z83.3 - Family history of diabetes mellitus, Z86.32 - Personal history of gestational diabetes Medications: Refilled ondansetron HCl 4 mg PO Q8H 3 days PRN 15 tabs 0RF nausea and vomiting desvenlafaxine succinate ER (Pristiq) 25 mg PO DAILY 90 tabs 1RF Patient Instructions: Patient Instructions - Resume taking Pristiq once daily in the morning; possible transient headaches may occur initially. - Arrange for a glucose tolerance test as discussed; contact the office if experiencing worsening symptoms. - Continue using albuterol, Bztree, and Singulair for asthma management. - Refills for Zofran are provided for managing nausea. - Monitor and report any significant changes in symptoms or new symptoms immediately. - Make follow-up appointments with Dr. Kaur and OB-CIRCULATION LIBRARIAN. - Ensure adequate hydration and consider symptom-based dietary adjustments to manage nausea. - Follow up with me in 6-8 weeks to review the effectiveness of the Pristiq adjustment and any findings from the glucose tolerance test.
[2024-06-18 08:38] VITALS: BP 103/66; PULSE 79; RESP 16; TEMP 36.7; O2SAT 97; BMI 34.0
--- OUTSIDE RECORDS SUMMARY | 2024-06-18 08:57 | XMS_ITS | Data Portability ---
Author Organization [facility] Internal Medicine, Home Service Address [address] [place] [address] Assessment Encounter Date Assessment Date Assessment LastModified by Organization Details LastModified Time 10/22/2017 10/22/2017 a total of 90 minutes was spent with this patient which includes extensive testing, counselling, explanation of plan Not available 10/22/2017 16:14:53 Plan of Treatment Reminders Order Date Submit Date Provider Last Modified By Organization Details Last Modified Time Details Appointments None recorded. Lab rapid strep group A, throat 2017 018 [facility], [address] [place] [address], [address], [place], [address], 8 12:29:52 CMP, serum or plasma 2017 018 [facility], [address] [place] [address], [facility] [address], [place], [address], 8 08:28:52 lipase, serum or plasma 2017 018 [facility], [address] [place] [address], [facility] [address], [place], [address], 8 08:28:52 amylase, serum or plasma 2017 018 [facility], [address] [place] [address], [address], [place], [address], 8 08:28:52 H pylori iga Ab, serum 2017 018 [facility] Internal [facility], [address] [place] [address], [address], [place], [address], 8 08:28:52 urinalysis , dipstick [address] [facility] Internal [facility], [address] [place] [address], [address], [place], [address], 8 15:36:52 culture, urine 2017 018 [facility] Internal [facility], [address] [place] [address], [address], [place], [address], 8 08:36:26 CBC w/ diff 2017 018 [facility], [address] [place] [address], [facility], [place], [address], 8 08:28:51 TSH + free T4, serum 2017 018 [facility], [address] [place] [address], [facility], [place], [address], 8 08:28:51 mecca-ba rr virus (ebv) IgG + IgM panel, serum 2017 018 [facility], [address] [place] [address], [address], [place], [address], 8 08:28:51 lyme disease igg+igm, serum, reflex western blot 2017 018 [facility], [address] [place] [address], [address], [place], [address], 8 08:28:52 culture, urine 2017 018 [facility] Internal [facility], [address] [place] [address], [address], [place], [address], 8 08:06:57 urinalysis , reflex culture 2017 [address] [facility] Internal Medicine, [address], [address], [place], [address], 8 08:06:57 urinalysis , dipstick [address] [facility] Internal [facility], [address] [place] [address], [address], [place], [address], 8 11:50:18 Referral gastroente rologist referral 2017 018 bryson Granda MD, [address] [facility] [address], [place], [address], 8 09:41:[address] referral 2017 [facility], [address] [facility], [place], [address], 8 08:26:[address] referral 2017 018 [facility], [address] [facility], [place], [address], 8 08:35:16 Procedures None recorded. Surgeries None recorded. Imaging electrocar diogram 2017 [email or web address] [facility] Internal [facility], [address] [place] [address], [address], [place], [address], 8 16:03:59 holter monitor 2017 018 Not available 8 10:32:11 Medication Orders trazodone 50 mg tablet 2017 018 [id number], [address] [facility] [place], [address], 8 10:47:52 amoxicilli n 875 mg tablet 2017 018 [id number], [address] [place], [address], 8 14:23:35 Medrol (Ameya) 4 mg tablets in a dose pack 2017 018 [id number], [address] [place], [address], 8 14:24:01 Cheratussi n AC 10 mg-100 mg/5 mL oral liquid 2017 018 [id number], [address] [place], [address], 8 14:23:41 Colace 100 mg capsule 2017 018 [id number], [address] [place], [address], 8 11:16:15 amoxicilli n 875 mg tablet [address], [address], 8 11:53:17 meclizine 25 mg tablet 2017 018 [facility] 3, [address] [place] [address], [address], 8 11:53:17 Patient TargetsNo targets recorded. Patient Instructions Encounter Date Encounter Id Patient Instructions Last Modified By Organization Details Last Modified Time 09/05/2017 [id number] specimen collection & handling* Not available 09/12/2017 07:27:09 09/10/2017 [id number] pulse oximetry* Not availabl e 09/10/2017 11:58:31 10/22/2017 [id number] constipation: care instructions Not available 10/22/2017 15:03:43 pulse oximetry* Not available 10/22/2017 15:03:44 11/26/2017 [id number] pulse oximetry* Not availabl e 11/26/2017 11:50:11 Reason for Referral Assisted Living Associate Referral for Abdominal pain Referring Physician: Terra Leggett [facility], Encounter Date: 10/22/2017 Energy Management Specialist Referral for Li ghtheadedness orthostatic hypotension of unknown etiology Referring Physician: Terra Leggett [facility], Encounter Date: 10/22/2017 Energy Management Specialist Referral for Or thostatic hypotension Referring Physician: Terra Leggett [facility], Encounter Date: 11/26/2017 Results Created Date Observation Date Name Description Value Unit Range Abnormal Flag Note LastModifiedBy Organization Detail LastModifiedTime 11/27/19 18 11/26/2017 urina lysis , dipst ick Leukocytes Trace Not Available [address], [address], 11/26/2017 11:37:35 11/27/19 18 11/26/2017 urina lysis , dipst ick Nitrite negati ve Not Available [address], [place], [address], 11/26/2017 11:37:35 11/27/19 18 11/26/2017 urina lysis , dipst ick Urobilinogen .2 Not Available [address], [place], [address], 11/26/2017 11:37:35 11/27/19 18 11/26/2017 urina lysis , dipst ick Protein Trace Not Available [address], [place], [address], 11/26/2017 11:37:35 11/27/19 18 11/26/2017 urina lysis , dipst ick pH 6.0 Not Available [address], [place], [address], 11/26/2017 11:37:35 11/27/19 18 11/26/2017 urina lysis , dipst ick Blood Negati ve Not Available [facility] [address], [place], [address], 11/26/2017 11:37:35 11/27/19 18 11/26/2017 urina lysis , dipst ick Specific Daphne 1.020 Not Available [facility] [address], [place], [address], 11/26/2017 11:37:35 11/27/19 18 11/26/2017 urina lysis , dipst ick Ketone Negati ve Not Available [facility] [address], [place], [address], 11/26/2017 11:37:35 11/27/19 18 11/26/2017 urina lysis , dipst ick Bilirubin Negati ve Not Available [facility] [address], [place], [address], 11/26/2017 11:37:35 11/27/19 18 11/26/2017 urina lysis , dipst ick Glucose Negati ve Not Available [facility] [address], [place], [address], 11/26/2017 11:37:35 11/27/19 18 11/26/2017 urina lysis , dipst ick Appearance Clear Not Available [facility] [address], [place], [address], 11/26/2017 11:37:35 11/27/19 18 11/26/2017 urina lysis , dipst ick Color Yellow Not Available [facility] [address], [place], [address], 11/26/2017 11:37:35 10/23/19 18 10/22/2017 urina lysis , dipst ick Leukocytes Trace Not Available [facility] [address], [place], [address], 10/22/2017 15:35:07 10/23/19 18 10/22/2017 urina lysis , dipst ick Nitrite negati ve Not Available [facility] [address], [place], [address], 10/22/2017 15:35:07 10/23/19 18 10/22/2017 urina lysis , dipst ick Urobilinogen .2 Not Available [facility] [address], [place], [address], 10/22/2017 15:35:07 10/23/19 18 10/22/2017 urina lysis , dipst ick Protein Negati ve Not Available [facility] [address], [place], [address], 10/22/2017 15:35:07 10/23/19 18 10/22/2017 urina lysis , dipst ick pH 6.0 Not Available [facility] [address], [place], [address], 10/22/2017 15:35:07 10/23/19 18 10/22/2017 urina lysis , dipst ick Blood Negati ve Not Available [facility] [address], [place], [address], 10/22/2017 15:35:07 10/23/19 18 10/22/2017 urina lysis , dipst ick Specific Daphne 1.020 Not Available [facility] [address], [place], [address], 10/22/2017 15:35:07 10/23/19 18 10/22/2017 urina lysis , dipst ick Ketone Negati ve Not Available [facility] [address], [place], [address], 10/22/2017 15:35:07 10/23/19 18 10/22/2017 urina lysis , dipst ick Bilirubin Negati ve Not Available [facility] [address], [place], [address], 10/22/2017 15:35:07 10/23/19 18 10/22/2017 urina lysis , dipst ick Glucose Negati ve Not Available [facility] [address], [place], [address], 10/22/2017 15:35:07 09/06/19 18 09/05/2017 rapid strep group A, throa t Strep negati ve Not Available [facility] [address], [place], [address], 09/05/2017 10:18:46 09/11/19 18 09/10/2017 pulse oxime try* Result 99 Not Available [facility] [address], [place], [address], 09/10/2017 11:27:56 10/23/19 18 10/22/2017 elect rocar diogr am Rate & Rhythm 81 Not Available [facility] [address], [place], [address], 10/22/2017 14:56:45 10/23/19 18 10/22/2017 elect rocar diogr am QRS 86 Not Available [facility] [address], [place], [address], 10/22/2017 14:56:45 10/23/19 18 10/22/2017 elect rocar diogr am W[place] Interval 116 Not Available [facility] [address], [place], [address], 10/22/2017 14:56:45 10/23/19 18 10/22/2017 elect rocar diogr am QRS Duration 86 Not Available [address], [place], [address], 10/22/2017 14:56:45 10/23/19 18 10/22/2017 elect rocar diogr am QT Interval 406 Not Available [address], [address], 10/22/2017 14:56:45 10/23/19 18 10/22/2017 pulse oxime try* Result 97 Not Available [address], [address], 10/22/2017 14:26:16 11/27/19 18 11/26/2017 pulse oxime try* Result 96 Not Available [address], [address], 11/26/2017 11:16:45 Result Notes None recorded. Problems Name Problem SNOMED Code Status Onset Date Resolution Date Notes Provider Name and Address Organization Details Recorded Time Insomnia 328389320 Active 2017 Terra JOHN Leggett[address], [address], [facility] Internal [facility] 8 10:41:43 Asthma 909032116 Active [address], [address], [facility] 8 10:42:46 Problem Notes None recorded. Medical Equipment None Reported. Allergies Allergen ID Allergen Name Allergen Category Reaction Reaction Severity Criticality Documentation Date Start Date Code Code System Note Provider Name and Address Organization Details Recorded Time 1158 Cefzil medicatio n Not available Not available Not available 09/05/2017 79802 1 [facility] 8 10:20:59 Medications Name Sig Start Date Stop Date Status Note LastModified by Organization Details LastModified Time Colace 100 mg capsule Take 1 capsule 3 times a day by oral route as needed for 30 days. 11/26 completed Not Available Not Available Not Available paroxetine 10 mg tablet 09/05 completed Not Available Not Available Not Available trazodone 50 mg tablet TAKE 1 TABLET BY MOUTH DAILY AT BEDTIME active Not Available Not Available No t Available azithromyci n 250 mg tablet 09/05 completed Not Available Not Available Not Available hydrocodone 5 mg-acetamin ophen 325 mg tablet active Not Available Not Available No t Available ondansetron HCl 4 mg tablet active Not Available Not Available Not Available prednisone 20 mg tablet 09/05 completed Not Available Not Available Not Available acetaminoph en 300 mg-codeine 30 mg tablet 10/22 completed Not Available Not Available Not Available amoxicillin 875 mg tablet Take 1 tablet every 12 hours by oral route for 10 days. active Not Available Not Available No t Available meclizine 25 mg tablet Take 1 tablet 3 times a day by oral route for 15 days. active Not Available Not Available No t Available oseltamivir 75 mg capsule 09/05 completed Not Available Not Available Not Available Advair Diskus 500 mcg-50 mcg/dose powder for inhalation 09/05 completed Not Available Not Available Not Available codeine 10 mg-guaifene sin 100 mg/5 mL oral liquid Take 10 mL every 4 hours by oral route as needed for 7 days. 10/22 completed Not Available Not Available Not Available Transderm-S copy reader 1 mg over 3 days transdermal patch apply 1 patch q3 days prn active Not Available Not Available No t Available ibuprofen 600 mg tablet 10/22 completed Not Available Not Available Not Available methylpredn isolone 4 mg tablets in a dose pack 24 mg PO on day 1, then decr. by 4 mg/day x5 days per dose pack instructi ons 10/22 completed Not Available Not Available Not Available drospirenon e 3 mg-ethinyl estradiol 0.03 mg tablet TAKE 1 TABLET BY MOUTH EVERY DAY. active Not Available Not Available No t Available rizatriptan 5 mg tablet active Not Available Not Available Not Available escitalopra m 5 mg tablet Take 1 tablet every day by oral route. active Not Available Not Available No t Available Vitals Date Recorded Body height Body mass index (BMI) Body weight Body temperature Heart rate Oxygen saturation Oxygen saturation in Arterial blood by Pulse oximetry Systolic blood pressure Diastolic blood pressure Provider Name and Address Organization Details Last Updated DateTime 8 158.75 cm 29.7 kg/m2 07378.1 g 97.9 [degF] 97 /min 97 % 97 % 128 mm[Hg] 84 mm[Hg] [facility] Internal [facility] 8 14:22:29 Date Recorded Body height Body mass index (BMI) Body weight Heart rate Oxygen saturation Oxygen saturation in Arterial blood by Pulse oximetry Systolic blood pressure Diastolic blood pressure Provider Name and Address Organization Details Last Updated DateTime 8 158.75 cm 29.6 kg/m2 36211.8 7 g 101 /min 96 % 96 % 120 mm[Hg] 84 mm[Hg] [facility] Internal [facility] 8 11:15:45 Date Recorded Body height Body mass index (BMI) Body weight Heart rate Oxygen saturation Oxygen saturation in Arterial blood by Pulse oximetry Body temperature Systolic blood pressure Diastolic blood pressure Provider Name and Address Organization Details Last Updated DateTime 8 162.56 cm 28.5 kg/m2 68211.0 5 g 130 /min 97 % 97 % 99.1 [degF] 110 mm[Hg] 84 mm[Hg] [facility] Internal [facility] 8 10:19:56 Date Recorded Body height Body mass index (BMI) Body weight Heart rate Oxygen saturation Oxygen saturation in Arterial blood by Pulse oximetry Body temperature Systolic blood pressure Diastolic blood pressure Provider Name and Address Organization Details Last Updated DateTime 8 162.56 cm 29 kg/m2 15326.8 3 g 109 /min 99 % 99 % 98.1 [degF] 100 mm[Hg] 78 mm[Hg] [facility] Internal [facility] 8 11:25:36 Social History Question Answer Notes LastModified by Organizat ion Details LastModified Time Tobacco Smoking Status [facility]oker Not Available [facility] 03/09/2020 03:36:23 What Was The Date Of Your Most Recent Tobacco Screening? 11/26/2017 [id number] Information not available 03/09/2020 How Many Years Have You Smoked Tobacco? 3 [id number] Information not available 03/09/2020 Sex: Unknown Functional Status None recorded. Mental Status None recorded. Family History Nothing Reported. Medical History No medical history recorded. Gynecological HistoryNo gynecological history recorded. Obstetrics History GPAL:G 0 P 0 0 0 0 Past Encounters Encounter ID Performer Location Encounter Start Date Encounter Closed Date Diagnosis/Indication Diagnosis SNOMED-CT Code Diagnosis ICD10 Code Diagnosis Note [id number] Ter[facility] [address] [facility],[place] [address] 09/05/2017 10:08:59 09/05/2017 11:02:08 Acute pharyngitis 285804337 J02.9 Acute asthma 270692935 J 45.901 Insomnia 919689728 G47.0 0 [id number] [facility] Internal Medicine [address],[place] [address] 09/10/2017 10:27:22 09/10/2017 12:15:56 Viral syndrome 539616726 B34.9 given extensive ED work up there is little I can add for eval of her sx believe these sx must run their course vitals at this point are all normal, except slightly elevated HR, which may be bronchodil ator related she may d/c amox as I dont think it has any role at this point will make sure there is no uti Asthma 233177988 J45.90 9 stable, lungs clear Abdominal pain 31925005 R10.9 ? constipati on related - fiber, fluids, low fat diet, consider stool softeners or laxitive if needed will attempt to get cx results from ED will get additional ua/ucx to r/o bladder infection in case ED did not order UCx. [id number] August [facility] [address] [facility],[place] [address] 10/22/2017 13:58:58 10/22/2017 16:03:53 Asthma 276639688 J45.909 stable, lungs clear Lightheadedness 75992928 8 R42 unclear etiology abnormal orthostati c testing with a drop in bp and an increase in HR upon standing unusual given no medication s would cause this stressed importance of hydration f/u as needed right away if sx change or worsen Abdominal pain 20394214 R10.9 recurrent constipati on possible IBS-C? recommend GI consult had CT abdomen and pelvic u/s recently which were essentiall y unremarkab le about 1 month ago f/u as needed right away if sx change or worsen Fatigue 97849522 R53.83 unclear etiologyf/ u as needed if sx change or worsen Constipation 13911644 K5 9.00 constipati on diet discussed, possibly ibs c related f/u as needed right away if sx change or worsen Dizziness 303240733 R42 possibly vertigo in setting of ETD however dizziness not necessaril y motion triggeredf /u as needed right away if sx change or worsen Orthostati c hypotension 71425360 I95.1 refer to ortho as above stressed importance of hydration stressed importance of good dietf/u as needed right away if sx change or worsen Nausea 292015219 R11.0 h. pylori to be checked take zofran as needed to augment good nutritionf /u as needed right away if sx change or worsen [id number] CAMRON Leggett [facility] [address] [facility],[place] [address] 11/26/2017 10:55:43 11/26/2017 12:04:53 Vertigo 539925310 R42 ? 2/2 AOM Orthostati c hypotension 73573153 I95.1 Asthma 386407070 J45.90 9 stable, lungs clear Dysuria 88081099 R30.0 Health Concerns Section Related Observation LastModified by Organization Detai ls LastModified Time None Recorded Concern Status LastModified by Organization Details LastModified Time None Recorded Advance Directives Directive None Recorded Payers Encounter Date Sequence Insurance Name Policy Number Policy Lynn Covered Member ID Lynn Member ID Guarantor Name 09/05/[address] [facility] [id number] Cristela [place]aton [id number] Cristela Edwards 09/10/[address] [facility] [id number] Cristela Shields Jerry [id number] Cristela Raglandaton 10/22/[address] [facility] [id number] Cristela [place] [id number] Cristela Raglandaton 11/26/[address] [facility] [id number] Cristela Shields Jerry [id number] Cristela Calhounn Notes Date Note Type Note Provider Name a nd Address Organization Details Recorded Time 09/05/2017 text/html starting yesterd ay - sore throat, body aches, fever, cough has chronic runny nose with allergies she was flu tested yesterday at work and was negative some nausea yesterday has been using inhalers more frequently denies: ear pain, n/v/d 12 system ROS negative except where noted above- denies: chest pain, palp, sob, ankle swelling, visual problems, numbness or tingling extremities, abdominal pain, bowel/bladder issues, sexual dysfunction, abnormal bleeding, sx of sinus/respiratory infection , headaches, dizziness/lighthea dedness, rashes, or nail changes. Terra CAMRON Leggett [address] [place] [address], [place], [address], [facility] Medicine 09/05/2017 10:48:26 09/10/2017 text/html pt presented her e 09/05/17 for URI type infection and sore throat. she had tested neg for strep on rapid in past and then pos on subsequent cx, so she was empirically treated with amox. she continued to have fever after starting amox and then developed dark urine a day after starting her abx. her URI sx are improved except a mild intermittent cough. She developed abdominal and flank pain on sunday and was instructed to go to to r/o uti, from there she was sent to ED. ED did CT w/o contrast, pelvic u/s, hcg, cmp, cbc, magnesium, lipase all found to be normal/negative. the only suspicious finding was free fluid in pelvis on CT, which radiology interpreted as probably physiologic. Pt continues to have pain mid back radiating down the back to the legs and radiating anteriorly to the abdomen. She describes the pain as what it would feel like if she has bruises all over her body. she has pain under the ribs which is exacerbated by palpation. she had a urine test done in ED only had trace hematuria. will call to see if culture was done she tested neg for flu at her work she tested neg for rapid and throat cx for strep she tested neg for mono at associated sx: constipated x 3 days drinking 4 bottles of water per day, only urinating 2-3 x per day, urine was dark yesterday, but normal so far today. headache yesterday, felt out of it pertinent neg: no painful urination, no urgency, no frequency, no hematuria 12 system ROS negative except where noted above- denies: chest pain, palp, sob, ankle swelling, visual problems, numbness or tingling extremities, abnormal bleeding, dizziness/lighthea dedness, rashes, or nail changes. Terra Leggett [facility] [address] [place], [address], [facility] Medicine 09/10/2017 12:14:46 10/22/2017 text/html c/o facial flushing, fatigue, blurry vision, nausea, constipation, abdominal pain, lightheaded, dizziness, intermittent headaches, feels like she's going to pass out and feels like the room is spinning, palpitations, no appetite, tinnitus, neck is tight on left side for past 2 days - these sx have been going on x 1 week no vomiting no new meds no hearing loss no urinary issues no ear pain no sinus congestion no cough LMP- last week, gone now she is able to pass flatulence she was recently extensively worked up for abdominal pain and testing was unremarkable. she initially improved 12 system ROS negative except where noted above- denies: chest pain, palpitations, sob, ankle swelling, visual problems, hearing problems, muscle aches or pains, numbness or tingling extremities, bladder issues, sexual dysfunction, abnormal bleeding, sx of sinus/respiratory infection, rashes Terra Leggett [facility] [address] [place], [id number], [facility] Internal Medicine 10/22/2017 16:16:26 11/26/2017 text/html she is having ongoing dizziness room-spinning sensation /lighthe adedness. she says it got better for a couple of weeks, but has returned since last sunday. she was found to have orthostatic hypotension last visit and was referred to cardio, but the appointment was apparently never made and the pt states she called here to check in and was told we were working on it, but pt never heard back. ultimately she felt she was better so she didn't pursue it, but it's back now. she also never had her blood work done, but she will have them done today. she has her lab order. in addition to those sx her ears are blocked and right ear is painful she reports some burning with urination this AM as well as bladder pressure. denies possibility of 12 system ROS negative except where noted above- denies: chest pain, palpitations, sob, ankle swelling, visual problems, hearing problems, muscle aches or pains, numbness or tingling extremities, abdominal pain, bowel issues, bladder issues, sexual dysfunction, abnormal bleeding, sx of sinus/respiratory infection , headaches, dizziness/lighthea dedness, rashes, or nail changes. CAMRON Pizarro [address] [place] [address], [id number], [facility] Margar[facility] Internal Medicine 11/26/2017 11:54:39 OBGyn Episode No OBEpisode recorded.
== END 2024-06-18 09:14 | disposition home or self-care (01) ==
PROVIDERS: PCP Nurse Practitioner Family; Visit Provider Nurse Practitioner Family
DX: J45.998 Other asthma (principal); D80.2 Selective deficiency of immunoglobulin A [IgA]; Z68.34 Body mass index [BMI] 34.0-34.9, adult; E66.811 Obesity, class 1; F41.1 Generalized anxiety disorder; R73.9 Hyperglycemia, unspecified; Z86.32 Personal history of gestational diabetes; Z83.3 Family history of diabetes mellitus; J30.9 Allergic rhinitis, unspecified; R11.0 Nausea

== ENCOUNTER → 2024-06-18 08:23 | Outpatient (BNVA) | payer OTHER, SELFPAY | PROVIDERS: PCP Nurse Practitioner Family; Visit Provider Nurse Practitioner Family | DX: F41.1 Generalized anxiety disorder (principal); J45.998 Other asthma; D80.2 Selective deficiency of immunoglobulin A [IgA]; R73.9 Hyperglycemia, unspecified; E66.811 Obesity, class 1; Z68.34 Body mass index [BMI] 34.0-34.9, adult; J30.9 Allergic rhinitis, unspecified; R11.0 Nausea; Z86.32 Personal history of gestational diabetes; Z83.3 Family history of diabetes mellitus | CPT/HCPCS: 96127; 96160 ==

== ENCOUNTER 2024-07-29 15:42 | Outpatient (AMB) | payer OTHER, SELFPAY ==
--- NOTE | 2024-07-29 15:42 | MHC.PC.OV ---
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: No Allergies cefprozil [From CEFZIL] Allergy (Intermediate, Verified 07/29/24 16:26) UNKNOWN Cefzil Allergy (Unknown, Uncoded 07/29/24 16:26) unsure Medication List - Last Reconciled 07/29/24 by Chely Ames, [facility] albuterol sulfate 90 mcg/actuation 2 puffs inhalation Q4-6H PRN 30 days mxudofwzpk-puttmvfd-laemgytizk 160-9-4.8 mcg/actuation (Breztri Aerosphere) 2 inhalations inhalation BID 30 days desvenlafaxine succinate ER (Pristiq) 25 mg PO DAILY montelukast (Singulair) 5 mg PO DAILY nebulizer accessories As directed nebulizers As directed ondansetron HCl 4 mg PO Q8H PRN 3 days Tobacco use date assessed: 07/29/24 Dental Screening Dental Screen Date: 07/29/24 Did you have a dental visit in the last 12 months?: Yes Did you have a dental problem in the last 6 months where you did not have access to dental care?: No Was dental information given to patient?: Patient has dentist HPI HPI Comments History of Present Illness Details 29 y/o F with asthma, chronic allergic rhinitis, low IgA, migraines, JAK, Vestibular dysfunction, sialadenitis, obesity, hx of gestational DM Telehealth appt today to fu on MDD and JAK: Has been taking pristiq 25 mg QD, not at same time of day, Does not disrupt sleep. Feels jittery when takes on empty stomach Taking w/ food helps. Anxiety is better, No longer having physical sx. She is having more cognitive anxiety sx; worrying about different things. such as what if i got into an accident and hit a tree.. or something happened to the kids.. or someone comes into house at night while is working.. describes as random thoughts denies si/hi Does feel on edge all of the time did not take today Did not do the glucose tolerance test yet; it was faxed to [facility]. Working on scheduling. Feels her sx are worse. Feels every time she eats, she has to take a nap. Worse with carbs. Plan Increase Pristiq to 50mg QHS with food to avoid GI upset. Save 25 mg tabs in case we need to increase to 75mg in the future, max dose is 100mg Schedule GTT PAMELA If unable could consider Endo referral Lets plan to fu in 6 weeks telehealth, sooner prn Total time spent caring for the patient today was 20 minutes. This includes time spent before the visit reviewing the chart, time spent during the visit, and time spent after the visit on documentation, reviewing laboratory results, diagnostic imaging, medications, performing a medically necessary evaluation, counseling on diagnoses, care coordination, ordering appropriate tests, ordering appropriate medications, review of tests performed by other providers, reporting test results with the patient, communication with other healthcare providers. [facility] Medical History (Updated 06/18/24 @ 15:52 by ROHAN Mireles) Asthma Asthma exacerbation Chronic allergic rhinitis Epigastric pain Hx of migraines Lesion of skin of right ear Otitis media Pharyngitis Sinusitis Surgical History (Updated 01/23/24 @ 17:01 by ROHAN Mireles) No pertinent past surgical history Status post tonsillectomy and adenoidectomy Family History Maternal Grandfather Bladder cancer Social History Household Members: Spouse and Children Housing: House 75 years or older and lives alone: No Alcohol intake: former Patient Tobacco Use Status: Former Tobacco user e-Cigarette/Vaping Use: Never Used service: No Current occupational status: employed 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 @ [employer] Current occupational exposures/hazards: No Sexual orientation: Straight/Heterosexual Gender identity: Female Cognitive needs: No Hearing needs: No Vision needs: No Questionnaire Thrive Questionnaire Date Thrive assessed: 06/11/24 I am a: Patient What is your living situation today?: I have a steady place to live Within the past 12 months, did the food you bought not last and you didn't have the money to get more?: Never true Within the past 12 months, did you worry whether your food would run out before you got money to buy more?: Never true Do you have trouble paying for medicines?: No Do you have trouble getting transportation to medical appointments?: No Do you have trouble paying your heating and electricity bill?: No Do you have trouble taking care of your child, family member or friend?: No Do you have trouble with day-to-day activities such as bathing, preparing meals, shopping, managing finances, etc.?: No Are you currently unemployed and looking for a job?: No Are you interested in more education?: No Please select the resources that you would like help with: None Currently or been in a relationship where the following occur: No concerns reported THRIVE Score: 0 JAK-7 AMB Questionnaire JAK-7 Date JAK - 7 assessed: 06/18/24 Source: Developed by Drs. Rob Richardson, Mercedez Keene, Cisco Sumner and colleagues, with an educational chela from [employer]. Physical exam (Primary Care) Tobacco/Smoking Status: Tobacco use Status Tobacco use date assessed 07/29/24 07/29/24 15:44 Patient Tobacco Use Status Former Tobacco user 07/29/24 15:44 e-Cigarette/Vaping Use Never Used 07/29/24 15:44 Thrive Assessment: Date of Thrive Assessment Date Thrive assessed 06/11/24 07/29/24 15:44 Currently or been in a relationship where the following occur: No concerns reported Telehealth Telehealth Telehealth Platform: [facility] Location of provider rendering services: practice address Location of patient: address on file Patient Identification confirmed using: Name, : Yes Telehealth method: voice only Patient verbally consented to treatment: Yes Patient verbally consented to billing insurance company: Yes Patient informed of any privacy concerns related to visit: Yes Minutes spent on Phone/Video with Pt.: 11 Coding Level of Care Code Tele Est Pt Level 3 (83211) Complex EM visit Add On G2211 Diagnoses JAK (generalized anxiety disorder) F41.1 Elevated random blood glucose level R73.9 History of gestational diabetes Z86.32 Assessment & Plan Assessment & Plan (1) JAK (generalized anxiety disorder): Code(s): F41.1 - Generalized anxiety disorder Category: Medical (2) Elevated random blood glucose level: Code(s): R73.9 - Hyperglycemia, unspecified Category: Medical (3) History of gestational diabetes: Code(s): Z86.32 - Personal history of gestational diabetes Category: Medical Plan . Medications: New desvenlafaxine succinate ER (Pristiq) 50 mg PO DAILY 90 tabs 0RF Discontinued desvenlafaxine succinate ER (Pristiq) Discontinued Reason: Doctor's Order 25 mg PO DAILY 90 tabs 1RF
== END 2024-07-29 17:05 | disposition home or self-care (01) ==
LOC: HO.HMCFM 15:42
PROVIDERS: PCP Nurse Practitioner Family; Visit Provider Nurse Practitioner Family
DX: R73.9 Hyperglycemia, unspecified (principal); F41.1 Generalized anxiety disorder; Z86.32 Personal history of gestational diabetes

== ENCOUNTER → 2024-07-29 15:42 | Outpatient (BNVA) | payer OTHER, SELFPAY | PROVIDERS: PCP Nurse Practitioner Family; Visit Provider Nurse Practitioner Family ==

== ENCOUNTER 2024-09-08 15:20 | Outpatient (AMB) | payer OTHER, SELFPAY ==
--- NOTE | 2024-09-08 15:27 | A.OFFPC_ITS ---
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 Required: No Allergies cefprozil [From CEFZIL] Allergy (Intermediate, Verified 09/08/24 15:35) UNKNOWN Cefzil Allergy (Unknown, Uncoded 09/08/24 15:35) unsure Medication List - Last Reconciled 09/08/24 by Chely Ames, [facility]- albuterol sulfate 90 mcg/actuation 2 puffs inhalation Q4-6H PRN 30 days qunubizqfn-aqpshmqc-cfedxpjpxb 160-9-4.8 mcg/actuation (Breztri Aerosphere) 2 inhalations inhalation BID 30 days desvenlafaxine succinate ER (Pristiq) 50 mg PO DAILY montelukast (Singulair) 5 mg PO DAILY nebulizer accessories As directed nebulizers As directed ondansetron HCl 4 mg PO Q8H PRN 3 days Tobacco use date assessed: 07/29/24 Dental Screening Dental Screen Date: 07/29/24 HPI HPI Comments History of Present Illness Details 29 y/o F with asthma, chronic allergic r hinitis, low IgA, migraines, JAK, Vestibular dysfunction, sialadenitis, obesity, hx of gestational DM History of Present Illness - The patient is a 29-year-old female pr esenting with follow-up concerns related to her antidepressant medication, Pristiq, and a recent episode of chest pain. - She currently takes Pristiq 50 mg at n ight, which significantly controls her daytime symptoms though she notes persistent edginess. - She was supposed to have a GTT done as she thought her sx were related to carb intake; she states this is not th case now. It was r/t taking pristiq in the AM. Does not wish to pursue GTT at this time. - Mood has improved but is not at goal. Denies SI/HI. - Recently, she experienced acute chest discomfort while at rest, 3 days ago, while home alone w/ children. Described as a squeezing sensation in the chest, it was coupled with lightheadedness, flushing, and sweating?relieved by rest. Subsequent mild left chest discomfort persisted, resolving spontaneously, described more as breast pain. - Family history of cardiovascular issue s is notable, creating concern over potential cardiac etiology despite her young age and lack of lifestyle cardiovascular risk factors. - Sinus arrhythmia previously identified on EKG without causation for clinical concern. Assessment and Plan 1. Major Depressive Disorder Initiate Pristiq at 75 mg daily, combining 50 mg and 25 mg doses, due to persistent edginess. Monitor for efficacy and side effects over the next six to eight weeks. 2. Chest Pain, unspecified Order EKG and cardiac markers due to chest discomfort and family history of heart disease. Advise seeking immediate care if symptoms recur. 3. Sinus Arrhythmia Reassure patient of its commonality in youth but proceed with outpatient EKG for current assessment. RTO 6-8 weeks to fu on mood. Sooner PRN. Telehealth Attestation This encounter was conducted via a telehealth platform, and the documentation accurately reflects the information exchanged during the visit. The patient has been explained that this is an interactive (audio/video) telehealth encounter and what that consists of. The patient understands and wishes to proceed. [employer] platform was used. Total time spent caring for the patient today was 31 minutes. This includes time spent before the visit reviewing the chart, time spent during the visit, and time spent after the visit on documentation, reviewing laboratory results, diagnostic imaging, medications, performing a medically necessary evaluation, counseling on diagnoses, care coordination, ordering appropriate tests, ordering appropriate medications, review of tests performed by other providers, reporting test results with the patient, communication with other healthcare providers. [facility] Medical History (Updated 09/08/24 @ 17:12 by INDIO Mireles-LORETTA) Asthma Asthma exacerbation Chronic allergic rhinitis Epigastric pain Hx of migraines Lesion of skin of right ear Otitis media Pharyngitis Sinusitis Surgical History (Updated 01/23/24 @ 17:01 by INDIO Mireles-LORETTA) No pertinent past surgical history Status post tonsillectomy and adenoidectomy Family History Maternal Grandfather Bladder cancer Social History Household Members: Spouse and Children Housing: House 75 years or older and lives alone: No Alcohol intake: former Patient Tobacco Use Status: Former Tobacco user e-Cigarette/Vaping Use: Never Used service: No Current occupational status: employed 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 Rob Richardson, Mercedez Keene, [employer] Sum[employer] and colleagues, with an educational chela from [employer]. Physical exam (Primary Care) Tobacco/Smoking Status: Tobacco use Status Tobacco use date assessed 07/29/24 09/08/24 15:29 Patient Tobacco Use Status Former Tobacco user 09/08/24 15:29 e-Cigarette/Vaping Use Never Used 09/08/24 15:29 Thrive Assessment: Date of Thrive Assessment Date Thrive assessed 06/11/24 09/08/24 15:29 Telehealth Telehealth Telehealth Platform: [facility] Location of provider rendering services: practice address Location of patient: address on file Patient Identification confirmed using: Name, : Yes Telehealth method: voice only Patient verbally consented to treatment: Yes Patient verbally consented to billing insurance company: Yes Patient informed of any privacy concerns related to visit: Yes Minutes spent on Phone/Video with Pt.: 16 Coding Level of Care Code Tele Est Pt Level 4 (05769) Complex EM visit Add On G2211 Diagnoses JAK (generalized anxiety disorder) F41.1 Chest pain, unspecified type R07.9 Chest pain type: unspecified Assessment & Plan Assessment & Plan (1) JAK (generalized anxiety disorder): Code(s): F41.1 - Generalized anxiety disorder Category: Medical (2) Chest pain: Code(s): R07.9 - Chest pain, unspecified Category: Medical Qualifiers: Chest pain type: unspecified Qualified Code(s): R07.9 - Chest pain, unspecified Plan . Orders: Orders D Dimer High Sensitivity Today R07.9 - Chest pain, unspecified Magnesium Today R07.9 - Chest pain, unspecified Phosphorus Today R07.9 - Chest pain, unspecified Lipoprotein A Today R07.9 - Chest pain, unspecified TSH reflex Free T4 Today R07.9 - Chest pain, unspecified ECG 12 lead EKG Today R07.9 - Chest pain, unspecified Troponin-I High Sensitivity Today R07.9 - Chest pain, unspecified Creatine Kinase Total Today R07.9 - Chest pain, unspecified Complete Blood Count no Diff Today R07.9 - Chest pain, unspecified Apolipoprotein B Today R07.9 - Chest pain, unspecified Hemoglobin A1c Today R07.9 - Chest pain, unspecified Ferritin Today R07.9 - Chest pain, unspecified Medications: New desvenlafaxine succinate ER take with the 50mg for total dose of 75mg/day 25 mg PO DAILY 90 tabs 0RF
== END 2024-09-08 15:49 | disposition home or self-care (01) ==
LOC: HO.HMCFM 15:20
PROVIDERS: PCP Nurse Practitioner Family; Visit Provider Nurse Practitioner Family
DX: F41.1 Generalized anxiety disorder (principal); R07.9 Chest pain, unspecified

== ENCOUNTER → 2024-09-08 15:20 | Outpatient (BNVA) | payer OTHER, SELFPAY | PROVIDERS: PCP Nurse Practitioner Family; Visit Provider Nurse Practitioner Family | DX: Z13.89 Encounter for screening for other disorder (principal) ==

== ENCOUNTER 2024-10-27 15:58 | Outpatient (AMB) | payer SELFPAY ==
--- NOTE | 2024-10-27 16:04 | MHC.PC.OV ---
Intake Visit Reasons: fu pristiq increase Intake Note: Telehalth t increase meds [employer] Required: No Allergies cefprozil (From CEFZIL) Allergy (Intermediate, Verified 10/27/24 16:37) UNKNOWN Cefzil Allergy (Unknown, Uncoded 10/27/24 16:08) unsure Medication List - Last Reconciled 10/27/24 by Chely Ames, SP[employer] W[employer]DER-BC albuterol sulfate 90 mcg/actuation 2 puffs inhalation Q4-6H PRN 30 days ybshwkadno-dhzarmvy-qorebwrttm 160-9-4.8 mcg/actuation (Breztri Aerosphere) 2 inhalations inhalation BID 30 days desvenlafaxine succinate ER (Pristiq) 50 mg PO DAILY desvenlafaxine succinate ER 25 mg PO DAILY montelukast (Singulair) 5 mg PO DAILY nebulizer accessories As directed nebulizers As directed ondansetron HCl 4 mg PO Q8H PRN 3 days Tobacco use date assessed: 10/27/24 Dental Screening Dental Screen Date: 10/27/24 Did you have a dental visit in the last 12 months?: Yes Did you have a dental problem in the last 6 months where you did not have access to dental care?: No Was dental information given to patient?: Patient has dentist HPI HPI Comments History of Present Illness Details 29 y/o F with asthma, chronic allergic rhinitis, low IgA, migraines, JAK, Vestibular dysfunction, sialadenitis, obesity, hx of gestational DM Telehealth fu JAK, MDD Improved mood on Pristiq 75 mg QD Only having sx during menses No side effects No EKG or labs done to eval prior complaint of Chest pain She reports it was r/t Apple Bees, non cardiac, recurred w/ Apple Bee intake Described as gas bubble No interest in fu on this @ this time Had an episode of LEON that lasted 5 days at the time of her periods. ? dehydration. Has a friend that takes testosterone supplements with + effect on mood, wonders about hormone testing and tx. Exam limited by Video Alert Oriented Speaking in full sentences Scleras noncteric MMM Nonfocal exam Plan: Cont pristiq 75mg QD - refill sent Start celexa 20mg 7 days before period and cont for 3 days into cycle Ask friend who she sees for HRT and let me know, i will refer aware i do not manage HRT . Hydrate liberally DC cardiac workup RTO Sept CPE sooner PRN Telehealth Attestation This encounter was conducted via a telehealth platform, and the documentation accurately reflects the information exchanged during the visit. The patient has been explained that this is an interactive (audio/video) telehealth encounter and what that consists of. The patient understands and wishes to proceed. [employer] platform was used. Total time spent caring for the patient today was 31 minutes. This includes time spent before the visit reviewing the chart, time spent during the visit, and time spent after the visit on documentation, reviewing laboratory results, diagnostic imaging, medications, performing a medically necessary evaluation, counseling on diagnoses, care coordination, ordering appropriate tests, ordering appropriate medications, review of tests performed by other providers, reporting test results with the patient, communication with other healthcare providers. [facility] Medical History (Updated 10/27/24 @ 16:59 by INDIO Mireles-LORETTA) Pharyngitis Epigastric pain Lesion of skin of right ear Chronic allergic rhinitis Sinusitis Asthma Asthma exacerbation Otitis media Hx of migraines Surgical History (Updated 01/23/24 @ 17:01 by INDIO Mireles-LORETTA) Status post tonsillectomy and adenoidectomy No pertinent past surgical history Family History Maternal Grandfather Bladder cancer Social History Household Members: Spouse and Children Housing: House 75 years or older and lives alone: No Alcohol intake: former Patient Tobacco Use Status: Former Tobacco user e-Cigarette/Vaping Use: Never Used service: No Current occupational status: employed Current occupation: [employer] @ [employer] Current occupational exposures/hazards: No Sexual orientation: Straight/Heterosexual Gender identity: Female Cognitive needs: No Hearing needs: No Vision needs: No Questionnaire PHQ-9 Over the last 2 weeks, how often have you been bothered by any of the following problems? 1. Little interest or pleasure in doing things: not at all 2. Feeling down, depressed, or hopeless: not at all 3. Trouble falling or staying asleep, or sleeping too much: not at all 4. Feeling tired or having little energy: nearly every day 5. Poor appetite or overeating: not at all 6. Feeling bad about yourself - or that you are a failure or have let yourself or your family down: not at all 7. Trouble concentrating on things, such as reading the newspaper or watching television: more than half the days 8. Moving or speaking so slowly that other people could have noticed. Or the opposite - being so fidgety or restless that you have been moving around a lot more than usual: not at all 9. Thoughts that you would be better off or of hurting yourself in some way: not at all Total score: 5 Depression Screening Interpretation: Positive Depression Screening Done: Yes 25153 - PHQ-9 Billing: Yes Source: Developed by Drs. Rob Richardson, Merecdez Keene, Cisco Sumner and colleagues, with an educational chela from [employer]. Thrive Questionnaire Date Thrive assessed: 10/27/24 I am a: Patient What is your living situation today?: I have a steady place to live Within the past 12 months, did the food you bought not last and you didn't have the money to get more?: Never true Within the past 12 months, did you worry whether your food would run out before you got money to buy more?: Never true Do you have trouble paying for medicines?: No Do you have trouble getting transportation to medical appointments?: No Do you have trouble paying your heating and electricity bill?: No Do you have trouble taking care of your child, family member or friend?: No Do you have trouble with day-to-day activities such as bathing, preparing meals, shopping, managing finances, etc.?: No Are you currently unemployed and looking for a job?: No Are you interested in more education?: No THRIVE Score: 0 JAK-7 AMB Questionnaire JAK-7 Date JAK - 7 assessed: 10/27/24 Feeling nervous, anxious, or on edge: 0 = Not at all Not being able to stop or control worryin = Several days Worrying too much about different things: 1 = Several days Trouble relaxin = Several days Being so restless that it is hard to sit still: 0 = Not at all Becoming easily annoyed or irritable: 1 = Several days Feeling afraid as if something awful might happen: 0 = Not at all Total JAK-7 score (0-4 normal; 5-9 mild; 10-14 moderate; 15-21 severe): 4 Source: Developed by Drs. Rob Richardson, Mercedez Keene, Cisco Sumner and colleagues, with an educational chela from [employer]. JAK-7 Assessment Billing JAK-7 Assessment Tool: JAK-7 Assessment 94182 Physical exam (Primary Care) Tobacco/Smoking Status: Tobacco use Status Tobacco use date assessed 10/27/24 10/27/24 16:09 Patient Tobacco Use Status Former Tobacco user 10/27/24 16:09 e-Cigarette/Vaping Use Never Used 10/27/24 16:09 PHQ-9: PHQ-9 Score PHQ-9: Total score 5 10/27/24 16:09 Depression Screening Interpretation: Positive Thrive Assessment: Date of Thrive Assessment Date Thrive assessed 10/27/24 10/27/24 16:09 Telehealth Telehealth Telehealth Platform: [facility] Location of provider rendering services: practice address Location of patient: address on file Patient Identification confirmed using: Name, : Yes Telehealth method: video Patient verbally consented to treatment: Yes Patient verbally consented to billing insurance company: Yes Patient informed of any privacy concerns related to visit: Yes Minutes spent on Phone/Video with Pt.: 15 Coding Level of Care Code Tele Est Pt Level 4 (50902) Complex EM visit Add On G2211 Diagnoses JAK (generalized anxiety disorder) F41.1 Chest pain, unspecified type R07.9 Chest pain type: unspecified PMDD (premenstrual dysphoric disorder) F32.81 Nonintractable headache, unspecified chronicity pattern, unspecified headache type R51.9 Headache type: unspecified Headache chronicity pattern: unspecified pattern Intractability: not intractable Additional Codes JAK-7 Assessment Billing - JAK-7 Assessment Tool: JAK-7 Assessment 55955 ([id number]) PHQ-9 - 69235 - PHQ-9 Billing: Yes ([id number]) Assessment & Plan Assessment & Plan (1) JAK (generalized anxiety disorder): Code(s): F41.1 - Generalized anxiety disorder Category: Medical (2) Chest pain: Comment: RESOLVED. Code(s): R07.9 - Chest pain, unspecified Category: Medical Qualifiers: Chest pain type: unspecified Qualified Code(s): R07.9 - Chest pain, unspecified (3) PMDD (premenstrual dysphoric disorder): Code(s): F32.81 - Premenstrual dysphoric disorder Category: Medical (4) Headache: Code(s): R51.9 - Headache, unspecified Qualifiers: Headache type: unspecified Headache chronicity pattern: unspecified pattern Intractability: not intractable Qualified Code(s): R51.9 - Headache, unspecified Plan . Medications: New citalopram (Celexa) 20 mg PO DAILY 30 tabs 2RF Refilled desvenlafaxine succinate ER (Pristiq) 50 mg PO DAILY 90 tabs 0RF desvenlafaxine succinate ER take with the 50mg for total dose of 75mg/day 25 mg PO DAILY 90 tabs 0RF
--- OUTSIDE RECORDS SUMMARY | 2024-10-27 17:25 | XMS_ITS | Data Portability ---
Author Organization [facility], Telehealth Patient Home Address [address] [place] [id number] Assessment Encounter Date Assessment Date Assessment LastModified by Organization Details LastModified Time 10/22/2017 10/22/2017 a total of 90 minutes was spent with this patient which includes extensive testing, counselling, explanation of plan axel Not available 10/22/2017 16:14:53 Plan of Treatment Reminders Order Date Submit Date Provider Last Modified By Organization Details Last Modified Time Details Appointments None recorded. Lab culture, urine 2017 018 [facility], [address] [place] [address], [address], 8 08:06:57 urinalysis , reflex culture 2017 018 [facility], [address] [place] [address], [address], 8 08:06:57 urinalysis , dipstick [email or web address] Internal Medicine, [address] [place] [address], [place], [address], 8 11:50:18 CMP, serum or plasma 2017 018 [email or web address], [address] [place] [address], [facility], [place], [address], 8 08:28:52 lipase, serum or plasma 2017 018 [facility], [address] [place] [address], [address], [place], [address], 8 08:28:52 amylase, serum or plasma 2017 018 [facility], [address] [place] [address], [facility] [address], [place], [address], 8 08:28:52 H pylori iga Ab, serum 2017 018 [facility], [address] [place] [address], [facility], [place], [address], 8 08:28:52 urinalysis , dipstick [email or web address], [address] [place] [address], [facility] [address], [place], [address], 8 15:36:52 culture, urine 2017 018 [facility], [address] [place] [address], [facility], [place], [address], 8 08:36:26 CBC w/ diff 2017 018 [facility], [address] [place] [address], [facility] [address], [place], [address], 8 08:28:51 TSH + free T4, serum 2017 018 [facility], [address] [place] [address], [facility], [place], [address], 8 08:28:51 mecca-ba rr virus (ebv) IgG + IgM panel, serum 2017 018 [facility], [address] [place] [address], [address], [place], [address], 8 08:28:51 lyme disease igg+igm, serum, reflex western blot 2017 018 [facility], [address] [facility], [address], [place], [address], 8 08:28:52 rapid strep group A, throat 2017 018 [facility], [address] [place] [address], [address], [place], [address], 8 12:29:52 Referral cardiologi referral 2017 018 [facility]iology, [address] [facility], [place], [address], 8 08:35:16 gastroente rologist referral 2017 018 [facility], [address] [facility] [address], [place], [address], 8 09:41:56 cardiologi referral 2017 018 [facility] Cardiology, [address] [facility], [address], [place], [address], 8 08:26:47 Procedures None recorded. Surgeries None recorded. Imaging electrocar diogram 2017 018 [facility], [address] [place] [address], [address], [place], [address], 8 16:03:59 holter monitor 2017 018 Not available 8 10:32:11 Medication Orders amoxicilli n 875 mg tablet 2017 018 INTERFACE [facility], [address] [place] [address], [address], 8 11:53:17 meclizine 25 mg tablet 2017 018 [facility] [address], [place], [address], 8 11:53:17 Colace 100 mg capsule 2017 018 [id number], [address] [place], [address], 8 11:16:15 trazodone 50 mg tablet 2017 018 [facility], [address] [place], [address], 8 10:47:52 amoxicilli n 875 mg tablet 2017 018 [id number], [address] [place], [address], 8 14:23:35 Medrol (Ameya) 4 mg tablets in a dose pack 2017 018 [id number], [address] [place], [address], 8 14:24:01 Cheratussi n AC 10 mg-100 mg/5 mL oral liquid 2017 018 [id number], [address] [place], [address], 8 14:23:41 Patient TargetsNo targets recorded. 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 Abdominal pain Referring Physician: Terra Leggett [facility], Encounter Date: 10/22/2017 Nutrition Intern Referral for Li ghtheadedness orthostatic hypotension of unknown etiology Referring Physician: Terra Leggett [facility], Encounter Date: 10/22/2017 Nutrition Intern Referral for Or thostatic hypotension Referring Physician: Terra Leggett [facility], Encounter Date: 11/26/2017 Results Created Date Observation Date Name Description Value Unit Range Abnormal Flag Note LastModifiedBy Organization Detail LastModifiedTime 11/27/19 18 11/26/2017 urina lysis , dipst ick Leukocytes Trace Not Available [address], [address], 11/26/2017 11:37:35 11/27/19 18 11/26/2017 urina lysis , dipst ick Nitrite negati ve Not Available [address], [place], [address], 11/26/2017 11:37:35 11/27/19 18 11/26/2017 urina lysis , dipst ick Urobilinogen .2 Not Available [facility] [address] [facility], [place], [address], 11/26/2017 11:37:35 11/27/19 18 11/26/2017 urina lysis , dipst ick Protein Trace Not Available [address], [place], [address], 11/26/2017 11:37:35 11/27/19 18 11/26/2017 urina lysis , dipst ick pH 6.0 Not Available [address] [place], [address], 11/26/2017 11:37:35 11/27/19 18 11/26/2017 urina lysis , dipst ick Blood Negati ve Not Available [facility] [address] [facility] [address], [place], [address], 11/26/2017 11:37:35 11/27/19 18 11/26/2017 urina lysis , dipst ick Specific [place] 1.020 Not Available [facility] [address] [facility] [address], [place], [address], 11/26/2017 11:37:35 11/27/19 18 11/26/2017 urina lysis , dipst ick Ketone Negati ve Not Available [facility] [address] [facility] [address], [place], [address], 11/26/2017 11:37:35 11/27/19 18 11/26/2017 urina lysis , dipst ick Bilirubin Negati ve Not Available [facility] [address] [facility] [address], [place], [address], 11/26/2017 11:37:35 11/27/19 18 11/26/2017 urina lysis , dipst ick Glucose Negati ve Not Available [facility] [address] [facility] [address], [place], [address], 11/26/2017 11:37:35 11/27/19 18 11/26/2017 urina lysis , dipst ick Appearance Clear Not Available [facility] [address] [facility] [address], [place], [address], 11/26/2017 11:37:35 11/27/19 18 11/26/2017 urina lysis , dipst ick Color Yellow Not Available [facility] [address] [facility] [address], [place], [address], 11/26/2017 11:37:35 10/23/19 18 10/22/2017 urina lysis , dipst ick Leukocytes Trace Not Available [address], [place], [address], 10/22/2017 15:35:07 10/23/19 18 10/22/2017 urina lysis , dipst ick Nitrite negati ve Not Available [facility] [address] [facility] [address], [place], [address], 10/22/2017 15:35:07 10/23/19 18 10/22/2017 urina lysis , dipst ick Urobilinogen .2 Not Available [address], [place], [address], 10/22/2017 15:35:07 10/23/19 18 10/22/2017 urina lysis , dipst ick Protein Negati ve Not Available [address], [place], [address], 10/22/2017 15:35:07 10/23/19 18 10/22/2017 urina lysis , dipst ick pH 6.0 Not Available [address], [place], [address], 10/22/2017 15:35:07 10/23/19 18 10/22/2017 urina lysis , dipst ick Blood Negati ve Not Available [address], [place], [address], 10/22/2017 15:35:07 10/23/19 18 10/22/2017 urina lysis , dipst ick Specific [place] 1.020 Not Available [address], [place], [address], 10/22/2017 15:35:07 10/23/19 18 10/22/2017 urina lysis , dipst ick Ketone Negati ve Not Available [facility] [address] [facility] [address], [place], [address], 10/22/2017 15:35:07 10/23/19 18 10/22/2017 urina lysis , dipst ick Bilirubin Negati ve Not Available [facility] [address] [facility] [address], [place], [address], 10/22/2017 15:35:07 10/23/19 18 10/22/2017 urina lysis , dipst ick Glucose Negati ve Not Available [facility] [address] [facility], [place], [address], 10/22/2017 15:35:07 09/06/19 18 09/05/2017 rapid strep group A, throa t Strep negati ve Not Available [facility] [address] [facility], [place], [address], 09/05/2017 10:18:46 09/11/19 18 09/10/2017 pulse oxime try* Result 99 Not Available [facility] Internal [facility] [address] [facility], [place], [address], 09/10/2017 11:27:56 10/23/19 18 10/22/2017 elect rocar diogr am Rate & Rhythm 81 Not Available [facility] [address] [facility], [place], [address], 10/22/2017 14:56:45 10/23/19 18 10/22/2017 elect rocar diogr am QRS 86 Not Available [facility] [address] [facility], [place], [address], 10/22/2017 14:56:45 10/23/19 18 10/22/2017 elect rocar diogr am W[place] Interval 116 Not Available [facility] [address] [facility] [address], [place], [address], 10/22/2017 14:56:45 10/23/19 18 10/22/2017 elect rocar diogr am QRS Duration 86 Not Available [address], [place], [address], 10/22/2017 14:56:45 10/23/19 18 10/22/2017 elect rocar diogr am QT Interval 406 Not Available [address], [place], [address], 10/22/2017 14:56:45 10/23/19 18 10/22/2017 pulse oxime try* Result 97 Not Available [address], [place], [address], 10/22/2017 14:26:16 11/27/19 18 11/26/2017 pulse oxime try* Result 96 Not Available [address], [address], 11/26/2017 11:16:45 Result Notes None recorded. Problems Name Problem SNOMED Code Status Onset Date Resolution Date Notes Provider Name and Address Organization Details Recorded Time Insomnia 507959358 Active 2017 [facility] JOHN Leggett[address], [address], [facility] Internal [facility] 8 10:41:43 Asthma 112108220 Active 2017 [facility] Oleksandr [address], [address], [facility] 8 10:42:46 Problem Notes None recorded. Medical Equipment None Reported. 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 transdermal patch [...] Updated DateTime 8 162.56 cm 28.5 kg/m2 71856.0 5 g 130 /min 97 % 97 % 99.1 [degF] 110 mm[Hg] 84 mm[Hg] [facility] 8 10:19:56 Date Recorded Body height Body mass index (BMI) Body weight Heart rate Oxygen saturation Oxygen saturation in Arterial blood by Pulse oximetry Body temperature Systolic blood pressure Diastolic blood pressure Provider Name and Address Organization Details Last Updated DateTime 8 162.56 cm 29 kg/m2 26229.8 3 g 109 /min 99 % 99 % 98.1 [degF] 100 mm[Hg] 78 mm[Hg] [facility] 8 11:25:36 Date Recorded Body height Body mass index (BMI) Body weight Body temperature Heart rate Oxygen saturation Oxygen saturation in Arterial blood by Pulse oximetry Systolic blood pressure Diastolic blood pressure Provider Name and Address Organization Details Last Updated DateTime 8 158.75 cm 29.7 kg/m2 31011.1 g 97.9 [degF] 97 /min 97 % 97 % 128 mm[Hg] 84 mm[Hg] [facility] 8 14:22:29 Date Recorded Body height Body mass index (BMI) Body weight Heart rate Oxygen saturation Oxygen saturation in Arterial blood by Pulse oximetry Systolic blood pressure Diastolic blood pressure Provider Name and Address Organization Details Last Updated DateTime 8 158.75 cm 29.6 kg/m2 62613.8 7 g 101 /min 96 % 96 % 120 mm[Hg] 84 mm[Hg] [facility] 8 11:15:45 Social History Question Answer Notes LastModified by Organizat ion Details LastModified Time Tobacco Smoking Status [facility]oker Not Available [facility] 03/09/2020 03:36:23 What Was The Date Of Your Most Recent Tobacco Screening? 11/26/2017 [id number] Information not available 03/09/2020 How Many Years Have You Smoked Tobacco? 3 [id number] Information not available 03/09/2020 Sex: Unknown Functional Status None recorded. Mental Status None recorded. Family History Nothing Reported. Medical History No medical history recorded. Gynecological HistoryNo gynecological history recorded. Obstetrics History GPAL:G 0 P 0 0 0 0 Past Encounters Encounter ID Performer Location Encounter Start Date Encounter Closed Date Diagnosis/Indication Diagnosis SNOMED-CT Code Diagnosis ICD10 Code Diagnosis Note [id number] Dae Evans [facility] Internal Medicine [address] [facility],[place] [address] 09/05/2017 10:08:59 09/05/2017 11:02:08 Acute pharyngitis 494186052 J02.9 Acute asthma 928215758 J 45.901 Insomnia 609569404 G47.0 0 [id number] Dae Gaffney Cristina [facility] Internal Medicine [address] [facility],[place] [address] 09/10/2017 10:27:22 09/10/2017 12:15:56 Viral syndrome 395412969 B34.9 given extensive ED work up there [...] make sure there is no uti Asthma 424821297 J45.90 9 stable, lungs clear Abdominal pain 48276630 R10.9 ? constipati on related - fiber, fluids, low fat diet, consider stool softeners or laxitive if needed will attempt to get cx results from ED will get additional ua/ucx to r/o bladder infection in case ED did not order UCx. [id number] Dae Evans [facility] Internal Medicine [address] [facility],[place] [address] 10/22/2017 13:58:58 10/22/2017 16:03:53 Asthma 740389425 J45.909 stable, lungs clear Lightheadedness 63278129 8 R42 unclear etiology abnormal orthostati c testing with a drop in bp and an increase in HR upon standing unusual given no medication s would cause this stressed importance of hydration f/u as needed right away if sx change or worsen Abdominal pain 65895431 R10.9 recurrent constipati on possible IBS-C? recommend GI consult had CT abdomen and pelvic u/s recently which were essentiall y unremarkab le about 1 month ago f/u as needed right away if sx change or worsen Fatigue 68457022 R53.83 unclear etiologyf/ u as needed if sx change or worsen Constipation 26403265 K5 9.00 constipati on diet discussed, possibly ibs c related f/u as needed right away if sx change or worsen Dizziness 462996900 R42 possibly vertigo in setting of ETD however dizziness not necessaril y motion triggeredf /u as needed right away if sx change or worsen Orthostati c hypotension 13118377 I95.1 refer to ortho as above stressed importance of hydration stressed importance of good dietf/u as needed right away if sx change or worsen Nausea 199311435 R11.0 h. pylori to be checked take zofran as needed to augment good nutritionf /u as needed right away if sx change or worsen [id number] Dae Evans DO [facility] Internal Medicine [address] [facility],[place] [address] 11/26/2017 10:55:43 11/26/2017 12:04:53 Vertigo 435996714 R42 ? 2/2 AOM Orthostati c hypotension 86670743 I95.1 Asthma 761548787 J45.90 9 stable, lungs clear Dysuria 93459311 R30.0 Health Concerns Section Related Observation LastModified by Organization Detai ls LastModified Time None Recorded Concern Status LastModified by Organization Details LastModified Time None Recorded Advance Directives Directive None Recorded Payers Insurance Date Sequence Insurance Name Policy Number Policy Lynn Covered Member ID Lynn Member ID Guarantor Name 12/12/[address] [place] [address] [id number] Cristela Edwards [id number] Cristela Edwards Notes Date Note Type Note Provider Name [...] headaches, dizziness/lighthea dedness, rashes, or nail changes. August CAMRON Leggett [address] [facility], [place], [address], [facility] Internal Medicine 09/05/2017 10:48:26 09/10/2017 text/html pt [...] dedness, rashes, or nail changes. Terra Leggett [facility] [address] [place], [address], [facility] Internal Medicine 09/10/2017 12:14:46 10/22/2017 text/html c/o [...] bleeding, sx of sinus/respiratory infection, rashes Terra Koehleranger [address], [address], [facility] Internal Medicine 10/22/2017 16:16:26 11/26/2017 text/html she [...] rashes, or nail changes. Terra CAMRON Leggett [address] [place] [address], [place], [address], [facility] 11/26/2017 11:54:39 OBGyn Episode No OBEpisode recorded.
== END 2024-10-27 16:59 | disposition home or self-care (01) ==
LOC: HO.HMCFM 15:58
PROVIDERS: PCP Nurse Practitioner Family; Visit Provider Nurse Practitioner Family
DX: R07.9 Chest pain, unspecified (principal); F41.1 Generalized anxiety disorder; F32.81 Premenstrual dysphoric disorder; R51.9 Headache, unspecified

== ENCOUNTER → 2024-10-27 15:58 | Outpatient (BNVA) | payer SELFPAY | PROVIDERS: PCP Nurse Practitioner Family; Visit Provider Nurse Practitioner Family | DX: F41.1 Generalized anxiety disorder (principal); R07.9 Chest pain, unspecified; F32.81 Premenstrual dysphoric disorder; J45.909 Unspecified asthma, uncomplicated; G43.909 Migraine, unspecified, not intractable, without status migrainosus | CPT/HCPCS: 96127 ==

== ENCOUNTER 2025-02-17 15:00 | Outpatient (AMB) | payer OTHER, SELFPAY ==
--- NOTE | 2025-02-17 15:02 | MHC.PC.OV ---
Vital Signs 02/17/25 15:07 Height 5 ft 4 in Weight 203 lb 2 oz BMI 34.9 BP 118/70 Blood Pressure Location Lt brachial Position Sitting Respiration 12 Pulse 76 Pulse Source Pulse Oximeter Temp 97.8 F Temp Source Oral Pulse Oximetry (%) 98 Oxygen Delivery Method Room Air Intake Visit Reasons: bronchitis, requesting antibiotic Intake Note: Patient c/o congested, runny nose, wheezing, sinus pressure and headaches x2 days. 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 Allergies cefprozil (From CEFZIL) Allergy (Intermediate, Verified 02/17/25 15:03) UNKNOWN Cefzil Allergy (Unknown, Uncoded 02/17/25 15:03) unsure Tobacco use date assessed: 02/17/25 Dental Screening Dental Screen Date: 02/17/25 Did you have a dental visit in the last 12 months?: Yes Did you have a dental problem in the last 6 months where you did not have access to dental care?: No Was dental information given to patient?: Patient has dentist HPI HPI Comments History of Present Illness Details 29 y/o F with asthma, chronic allergic rhinitis, low IgA, migraines, JAK, vestibular dysfunction, sialadenitis, obesity, hx of gestational DM presenting for sick visit Patient reports sinus congestion, maxillary pain, runny nose, wheezing, shortness of breath for the past week, worsening over the past two days. She says she has similar symptoms every year around this time requiring antibiotics and prednisone. She needs a breztri refill she is overdue with pulmonary. She just picked up a refill of her albuterol. Denies high fevers ROS see HPI PHYSICAL EXAM: GENERAL: Alert and oriented x 3. NAD EYES: EOMI. Anicteric. HENT: Moist mucous membranes. Tender maxillary sinuses LUNGS: Scattered rhonci and wheeze CARDIOVASCULAR: Regular rate and rhythm. ABDOMEN: Soft, non-tender +bs EXTREMITIES: No edema. Non-tender. SKIN: No rashes or lesions. Warm. NEUROLOGIC: No focal neurological deficits. CN II-XII grossly intact PSYCHIATRIC: Cooperative. Appropriate mood and affect [facility] Medical History (Updated 02/18/25 @ 10:00 by Kandace Menchaca MD) Sinusitis Pharyngitis Epigastric pain Lesion of skin of right ear Chronic allergic rhinitis Asthma Asthma exacerbation Otitis media Hx of migraines Surgical History (Updated 01/23/24 @ 17:01 by Chely Ames, [facility]) Status post tonsillectomy and adenoidectomy No pertinent past surgical history Family History Maternal Grandfather Bladder cancer Social History Household Members: Spouse and Children Housing: House 75 years or older and lives alone: No Alcohol intake: former Patient Tobacco Use Status: Former Tobacco user e-Cigarette/Vaping Use: Never Used service: No Current occupational status: employed 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 @ [employer] Current occupational exposures/hazards: No Sexual orientation: Straight/Heterosexual Gender identity: Female Cognitive needs: No Hearing needs: No Vision needs: No Questionnaire Thrive Questionnaire Date Thrive assessed: 02/17/25 I am a: Patient What is your living situation today?: I have a steady place to live Within the past 12 months, did the food you bought not last and you didn't have the money to get more?: Never true Within the past 12 months, did you worry whether your food would run out before you got money to buy more?: Never true Do you have trouble paying for medicines?: No Do you have trouble getting transportation to medical appointments?: No Do you have trouble paying your heating and electricity bill?: No Do you have trouble taking care of your child, family member or friend?: No Do you have trouble with day-to-day activities such as bathing, preparing meals, shopping, managing finances, etc.?: No Are you currently unemployed and looking for a job?: No Are you interested in more education?: No Please select the resources that you would like help with: None Currently or been in a relationship where the following occur: No concerns reported THRIVE Score: 0 JAK-7 AMB Questionnaire JAK-7 Date JAK - 7 assessed: 10/27/24 Source: Developed by Drs. Rob Richardson, Mercedez Keene, Cisco Sumner and colleagues, with an educational chela from [employer]. Physical exam (Primary Care) Vital Signs: Last Vital Signs Temp 97.8 F 02/17/25 15:07 Pulse 76 02/17/25 15:07 Resp 12 02/17/25 15:07 BP 118/70 02/17/25 15:07 Pulse Ox 98 02/17/25 15:07 Oxygen Delivery Method Room Air 02/17/25 15:07 BMI result Body Mass Index 34.9 Tobacco/Smoking Status: Tobacco use Status Tobacco use date assessed 02/17/25 02/17/25 15:09 Patient Tobacco Use Status Former Tobacco user 02/17/25 15:09 e-Cigarette/Vaping Use Never Used 02/17/25 15:09 Thrive Assessment: Date of Thrive Assessment Date Thrive assessed 02/17/25 02/17/25 15:09 Currently or been in a relationship where the following occur: No concerns reported Coding Level of Care Code Est Pt Level 4 (06776) Diagnoses Subacute maxillary sinusitis J01.00 Sinusitis location: maxillary Chronicity: subacute Poorly controlled persistent asthma J45.998 Assessment & Plan Assessment & Plan (1) Sinusitis: Code(s): J32.9 - Chronic sinusitis, unspecified Category: Medical Qualifiers: Sinusitis location: maxillary Chronicity: subacute Qualified Code(s): J01.00 - Acute maxillary sinusitis, unspecified (2) Poorly controlled persistent asthma: Comment: managed by Pulm Could not tolerate increase of Singulair as this caused diarrhea. Resume 5 mg daily, cont Flonase 2 sprays each nostril once per day. .Allergic asthma with elevated Eos Code(s): J45.998 - Other asthma Category: Medical Plan 29 year old with sinusitis, asthma exacerbation Doxycycline, prednisone sent Advised to call the office for persistent or worsening symptoms Medications: New prednisone 40 mg (2 x 20 mg) PO DAILY 10 tabs 1RF doxycycline monohydrate 100 mg PO BID 14 tabs 0RF Refilled zwutayvttv-cibvhblu-dkdtsbcoek 160-9-4.8 mcg/actuation (Breztri Aerosphere) 2 inhalations inhalation BID 10.7 grams 6RF 30 days J45.998 - Other asthma
[2025-02-17 15:07] VITALS: BP 118/70; PULSE 76; RESP 12; TEMP 36.6; O2SAT 98; BMI 34.9
== END 2025-02-17 15:29 | disposition home or self-care (01) ==
LOC: HO.HMCFM 15:00
PROVIDERS: PCP Nurse Practitioner Family; Visit Provider Internal Medicine
DX: J01.00 Acute maxillary sinusitis, unspecified (principal); J45.998 Other asthma